=== PATIENT | female | born 1930 | race African-American/Black ===

== ENCOUNTER 2016-06-19 07:21 | Inpatient (IN) | payer OTHER ==
[2016-06-19] MEDS ORDERED: morphine CARPU-JECT 4 MG/1 ML DISP.SYRIN IVPUSH ONE (07:46)
--- NOTE | 2016-06-19 07:51 | PDOC ---
History of Present Illness - General Chief Complaint: Edema Stated Complaint: LEFT LEG PAIN Time Seen by Provider: 06/19/16 07:23 History Source: Patient - History of Present Illness Occurred: reports: yesterday Severity: Yes: severe Lower Extremity Pain Location: left: leg Past History - Past Medical History Allergies/Adverse Reactions: Allergies Allergy/AdvReac Type Severity Reaction Status Date / Time aspirin Allergy Verified 06/19/16 08:12 azithromycin [From Zithromax] Allergy Verified 06/19/16 08:12 erythromycin base Allergy Verified 06/19/16 08:12 iodine Allergy Verified 06/19/16 08:12 Penicillins Allergy Verified 06/19/16 08:12 Sulfa (Sulfonamide Allergy Verified 06/19/16 08:12 Antibiotics) tetracycline Allergy Verified 06/19/16 08:12 Home Medications: Ambulatory Orders Amlodipine Besylate [Norvasc -] 5 mg PO DAILY 06/19/16 Atorvastatin Ca [Lipitor] 5 mg PO DAILY 06/19/16 Oxycodone HCl/Acetaminophen [Percocet 5-325 mg Tablet] 1 tab PO Q4H 06/19/16 Rivaroxaban [Xarelto -] 20 mg PO ASDIR 06/19/16 Tizanidine HCl [Zanaflex] 2 mg PO TID PRN 06/19/16 Trazodone HCl [Desyrel -] 50 mg PO ASDIR 06/19/16 Triamterene/Hydrochlorothiazid [Triamterene-Hctz 37.5-25 mg Cp] 1 each PO ASDIR 06/19/16 Valsartan [Diovan] 160 mg PO ASDIR 06/19/16 Review of Systems - Review of Systems Constitutional: No: Chills, Fever Respiratory: No: Shortness of Breath Cardiac (ROS): No: Chest Pain, Palpitations *Physical Exam - Physical Exam General Appearance: Yes: Appropriately Dressed. No: Apparent Distress HEENT: positive: Normal Voice Neck: positive: Supple Respiratory/Chest: positive: Lungs Clear, Normal Breath Sounds. 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 States she was taken off the xarelto prior to the surgery and has not resumed medication as of yet. No chest pain, shortness of breath or palpitations. No fever or chills. Denies trauma See exam LLE pain/swelling s/p RLE surgery for poorly healing wound 4 days ago at outside hospital R/o DVT No resp/cardiac complaints st this time Stable in ED -pain control -US -labs 06/19/16 09:44 Extensive DVT on US. No evidence of PE at this time. Will give lovenox and admit 06/19/16 10:35 Case d/w hospitalist and pt admitted 06/19/16 10:35 06/19/16 11:15 Patient's plastic surgeon, Dr. Bustamante, at [facility] contacted me to inform me that patient's procedure 4 days ago lasted approximately 25 minutes. States patient was told to resume Xarelto, however pt state she was not given a new rx and so have not restarted meds yet. When asked if he would be willing to accept pt back to facility, declines. *DC/Admit/Observation/Transfer Diagnosis at time of Disposition: DVT (deep venous thrombosis) Qualifiers: DVT location: lower extremity Affected thrombotic vein of extremity: unspecified vein of extremity Laterality: left Chronicity: acute Qualified Code( s): I82.402 - Acute embolism and thrombosis of unspecified deep veins of left lower extremity - Discharge Dispostion Condition at time of disposition: Fair Admit: Yes - Referrals
[2016-06-19 08:07] VITALS: BMI 29.5
[2016-06-19] MEDS ORDERED: morphine CARPU-JECT 2 MG/1 ML DISP.SYRIN ONE (08:26)
[2016-06-19 08:59] LABS: BASOPHIL 0.4 % (0-2.0); EOSINOPHIL 2.6 % (0-4.5); MCH 26.2 pg (25.7-33.7); MCHC 32.7 g/dl (32.0-36.0); NEUTROPHILS 81.9 % (42.8-82.8); PLATELET COUNT 201 K/MM3 (134-434); WHITE BLOOD COUNT 12.5 K/mm3 (4.0-10.0)
[2016-06-19 09:27] LABS: ALBUMIN 4.3 g/dl (3.4-5.0); CALCIUM 9.2 mg/dL (8.5-10.1); CREATININE 1.7 mg/dL (0.55-1.02)
[2016-06-19 09:29] LABS: BILIRUBIN,TOTAL 0.4 mg/dL (0.2-1.0); TOT PROT 7.6 g/dl (6.4-8.2)
[2016-06-19] MEDS ORDERED: ENOXAPARIN NA (PORCINE) 80 MG/0.8 ML DISP.SYRIN SQ SCH (10:15)
[2016-06-19] MEDS ORDERED: ENOXAPARIN NA (PORCINE) 80 MG/0.8 ML DISP.SYRIN SQ ONE (10:17)
[2016-06-19] MEDS ORDERED: ACETAMINOPHEN 325 MG TABLET (FP) PO PRN (10:54)
[2016-06-19] MEDS ORDERED: PATIENT'S OWN MEDICATION (NON-FORMULARY) (Tizanidine Hcl [Zanaflex] 2 MG) PO PRN (10:55)
--- NOTE | 2016-06-19 10:57 | HP ---
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 Bustamante at [facility] on Tuesday. She was discharged from the hospital yesterday. She has been off of Xarelto since Tuesday. She presents today with "tense" swelling and pain of the LLE. She has had some dry cough but denies chest pain or shortness of breath. ER course was notable for: (1) Cr 1.7 (no prior available for comparison) (2) Venous duplex of the LLE: Thrombus within the length of the left common femoral, femoral, and popliteal veins Recent Travel: None PAST SURGICAL HISTORY: SVC ligation x 50 yrs ago, Social History: Lives alone, has [employer] 5h/day 3d/wk Smoking: None Alcohol: None Allergies aspirin Allergy (Verified 06/19/16 08:12) azithromycin [From Zithromax] Allergy (Verified 06/19/16 08:12) erythromycin base Allergy (Verified 06/19/16 08:12) iodine Allergy (Verified 06/19/16 08:12) Penicillins Allergy (Verified 06/19/16 08:12) Sulfa (Sulfonamide Antibiotics) Allergy (Verified 06/19/16 08:12) tetracycline Allergy (Verified 06/19/16 08:12) HOME MEDICATIONS: Medication Instructions Recorded Amlodipine Besylate [Norvasc -] 5 mg PO DAILY 06/19/16 Atorvastatin Ca [Lipitor] 5 mg PO DAILY 06/19/16 Oxycodone HCl/Acetaminophen 1 tab PO Q4H 06/19/16 [Percocet 5-325 mg Tablet] Rivaroxaban [Xarelto -] 20 mg PO ASDIR 06/19/16 Tizanidine HCl [Zanaflex] 2 mg PO TID PRN 06/19/16 Trazodone HCl [Desyrel -] 50 mg PO ASDIR 06/19/16 Triamterene/Hydrochlorothiazid 1 each PO ASDIR 06/19/16 [Triamterene-Hctz 37.5-25 mg Cp] Valsartan [Diovan] 160 mg PO ASDIR 06/19/16 REVIEW OF SYSTEMS CONSTITUTIONAL: Absent: fever, chills, diaphoresis, generalized weakness, malaise, loss of appetite, weight change HEENT: Absent: rhinorrhea, nasal congestion, throat pain, throat swelling, difficulty swallowing, mouth swelling, ear pain, eye pain, visual changes CARDIOVASCULAR: Absent: chest pain, syncope, palpitations, irregular heart rate, lightheadedness , peripheral edema RESPIRATORY: Absent: cough, shortness of breath, dyspnea with exertion, orthopnea, wheezing, stridor, hemoptysis GASTROINTESTINAL: Absent: abdominal pain, abdominal distension, nausea, vomiting, diarrhea, constipation, melena, hematochezia GENITOURINARY: Absent: dysuria, frequency, urgency, hesitancy, hematuria, flank pain, genital pain MUSCULOSKELETAL: Absent: myalgia, arthralgia, joint swelling, back pain, neck pain SKIN: Absent: rash, itching, pallor HEMATOLOGIC/IMMUNOLOGIC: Absent: easy bleeding, easy bruising, lymphadenopathy, frequent infections ENDOCRINE: Absent: unexplained weight gain, unexplained weight loss, heat intolerance, cold intolerance NEUROLOGIC: Absent: headache, focal weakness or paresthesias, dizziness, unsteady gait, seizure, mental status changes, bladder or bowel incontinence PSYCHIATRIC: Absent: anxiety, depression, suicidal or homicidal ideation, hallucinations. PHYSICAL EXAMINATION GENERAL: Awake, alert, and fully oriented, in no acute distress. HEAD: Normal with no signs of trauma. EYES: Pupils equal, round and reactive to light, extraocular movements intact, sclera anicteric, conjunctiva clear. No lid lag. EARS, NOSE, THROAT: Ears normal, nares patent, oropharynx clear without exudates. Moist mucous membranes. NECK: Normal range of motion, supple without lymphadenopathy, JVD, or masses. LUNGS: Breath sounds equal, clear to auscultation bilaterally. No wheezes, and no crackles. No accessory muscle use. HEART: Regular rate and rhythm, normal S1 and S2 without murmur, rub or gallop. ABDOMEN: Soft, nontender, not distended, normoactive bowel sounds, no guarding, no rebound, no masses. No hepatomegaly or splenomegaly. MUSCULOSKELETAL: Normal range of motion at all joints. No bony deformities or tenderness. No CVA tenderness. UPPER EXTREMITIES: 2+ pulses, warm, well-perfused. No cyanosis. No clubbing. Cap refill <2 seconds. No peripheral edema. LOWER EXTREMITIES: RLE: Splinted. JOANNA wraps removed to assess pulses (1+) and sensation (intact), but splint left in place. LLE: Foot warm, able to move toes. Sensation is diminished. DP pulse is not dopplerable or palpable. 2+ non- pitting edema of foot and lower leg. No discoloration. NEUROLOGICAL: Cranial nerves II-XII intact. Normal speech. PSYCHIATRIC: Cooperative. Good eye contact. Appropriate mood and affect. SKIN: Warm, dry, normal turgor, no rashes or lesions noted. ASSESSMENT/PLAN: 85 year old female with extensive post-operative DVT of the left lower extremity. Problem List - Problem (1) DVT (deep venous thrombosis) Assessment/Plan: -Extensive DVT. Although there is no discoloration of the limb yet to suggest phlegmasia alba or cerulea dolens, pulse is not palpable or dopplerable and swelling may be causing arterial compromise. -Received Lovenox 80mg sq in ED; will start heparin gtt in 12 hrs so that patient can undergo thrombectomy. -Hold Xarelto. -Discussed with Dr. Graff- will obtain arterial doppler of LE now; if there is in fact compromise, will need to undergo thrombectomy now on an emergent basis, if not will schedule for Tuesday. -The patient denies chest pain or shortness of breath. She is not hypoxic or tachycardic. Low suspicion for PE at this time; in any case, patient is being fully anticoagulated. In case CTA becomes necessary: she is allergic to iodine and states that she gets "itching" from contrast, but states that she can have contrast if she receives Benadryl first. -[facility] surgeon is aware and does not want patient transferred back to [facility] for management. Code(s): I82.409 - ACUTE EMBOLISM AND THOMBOS UNSP DEEP VN UNSP LOWER EXTREMITY Qualifiers: DVT location: lower extremity Affected thrombotic vein of extremity: unspecified vein of extremity Laterality: left Chronicity: acute Qualified Code(s): I82.402 - Acute embolism and thrombosis of unspecified deep veins of left lower extremity (2) Hypertension Assessment/Plan: -At goal -Continue home regimen Code(s): I10 - ESSENTIAL (PRIMARY) HYPERTENSION (3) Hyperlipemia Assessment/Plan: -Continue home Atorvastatin Code(s): E78.5 - HYPERLIPIDEMIA, UNSPECIFIED (4) DVT prophylaxis Assessment/Plan: -Therapeutic anticoagulation -Ambulation with PT ADDENDUM 1:42pm: Arterial u/s reviewed with Dr. Granados: Diminished monophasic flow in the left [employer] with peak systolic flow 26 cm/s. Biphasic flow in the left common femoral, superficial femoral, and popliteal arteries. No indication for emergent thrombectomy; will schedule for Tuesday. Keep on heparin gtt throughout. NPO after midnight Tuesday. Patient must be on bedrest; no PT, no leg elevation. Please re-call Dr. Granados for any changes in exam, e.g. discoloration or cold in extremity. Code(s): BZZ6920 - Visit type - Emergency Visit Emergency Visit: Yes ED Registration Date: 06/19/16 Care time: The patient presented to the Emergency Department on the above date and was hospitalized for further evaluation of their emergent condition. - New Patient This patient is new to me today: Yes Date on this admission: 06/19/16 - Critical Care Critical Care patient: No
[2016-06-19] MEDS ORDERED: traZODone HCL 50 MG TABLET (FP) PO SCH (11:00)
[2016-06-19] MEDS ORDERED: RIVAROXABAN 20 MG TABLET PO SCH (11:00)
[2016-06-19] MEDS ORDERED: VALSARTAN 160 MG TABLET (UD) PO SCH (11:00)
[2016-06-19] MEDS ORDERED: TRIAMTERENE AND HCTZ - 37.5 MG/25 MG CAPSULE PO SCH (11:00)
[2016-06-19] MEDS ORDERED: HEPARIN NA (PORCINE) 5,000 UNITS/ML 1ML VIAL IVPUSH PRN ×3 (11:56→22:00)
[2016-06-19] MEDS ORDERED: HEPARIN - 25,000 UNIT in SODIUM CHLORIDE 495 ML IV SCH ×2 (12:00→22:00)
[2016-06-19] MEDS ORDERED: HEPARIN INFUSION - 500 ML IVPB SCH (12:15)
[2016-06-19] MEDS: morphine CARPU-JECT 4 MG/1 ML DISP.SYRIN IVPUSH PRN ×2 (14:48→23:11)
[2016-06-19] MEDS: DOCUSATE SODIUM 100 MG CAPSULE (FP) PO SCH ×2 (14:51→21:51)
--- NOTE | 2016-06-19 16:15 | EKG ---
Test Reason : Blood Pressure : / mmHG Vent. Rate : 079 BPM Atrial Rate : 079 BPM P-R Int : 168 ms QRS Dur : 076 ms QT Int : 374 ms P-R-T Axes : 042 -09 085 degrees QTc Int : 428 ms NORMAL SINUS RHYTHM MINIMAL VOLTAGE CRITERIA FOR LVH, MAY BE NORMAL VARIANT NONSPECIFIC T WAVE ABNORMALITY ABNORMAL ECG NO PREVIOUS ECGS AVAILABLE Confirmed by ZARA SOTO MD ([id number]) on 06/19/2016 4:15:24 PM Referred By: Confirmed By:ZARA SOTO MD
--- NOTE | 2016-06-19 16:38 | PDOC ---
*Physical Exam - Vital Signs Last Vital Signs Temp Pulse Resp BP Pulse Ox 98.7 F 79 18 143/70 97 06/19/16 14:59 06/19/16 14:59 06/19/16 14:59 06/19/16 11:40 06/19/16 11:40 ED Treatment Course - LABORATORY CBC & Chemistry Diagram: 06/19/16 08:40 06/19/16 08:40 - ADDITIONAL ORDERS Additional order review: Laboratory Results 06/19/16 08:40 Sodium 135 L Potassium 4.7 Chloride 105 Carbon Dioxide 27 Anion Gap 3 L BUN 42 H Creatinine 1.7 H Creat Clearance w eGFR 28.50 Random Glucose 97 Calcium 9.2 Total Bilirubin 0.4 AST 18 ALT 18 Alkaline Phosphatase 74 Total Protein 7.6 Albumin 4.3 06/19/16 08:40 RBC 3.89 MCV 80.0 MCHC 32.7 RDW 15.0 MPV 8.0 Neutrophils % 81.9 Lymphocytes % 7.6 L Monocytes % 7.5 Eosinophils % 2.6 Basophils % 0.4 - Medications Given in the ED: ED Medications Discontinued Medications Generic Name Dose Route Start Last Admin Trade Name Freq PRN Reason Stop Dose Admin Enoxaparin Sodium 80 mg 06/19/16 10:15 06/19/16 10:18 Lovenox - SQ 80 mg ONCE FLEX Administration Morphine Sulfate 2 mg 06/19/16 07:46 06/19/16 08:35 Morphine Injection - IVPUSH 06/19/16 07:47 2 mg ONCE ONE Administration Trazodone HCl 50 mg 06/19/16 11:00 06/19/16 15:15 Desyrel - PO Not Given ASDIR [facility] Triamterene/HCTZ 1 cap 06/19/16 11:00 06/19/16 15:15 Dyazide 25/37.5mg PO Not Given ASDIR FLEX Valsartan 160 mg 06/19/16 11:00 06/19/16 15:15 Diovan - PO Not Given ASDIR FLEX Medical Decision Making - Medical Decision Making 06/19/16 16:38 Pt seen by Midlevel Provider under my direct supervision Ancillary studies reviewed I agree with plan as outlined by Midlevel Provider *DC/Admit/Observation/Transfer Diagnosis at time of Disposition: DVT (deep venous thrombosis) Qualifiers: DVT location: lower extremity Affected thrombotic vein of extremity: unspecified vein of extremity Laterality: left Chronicity: acute Qualified Code( s): I82.402 - Acute embolism and thrombosis of unspecified deep veins of left lower extremity - Discharge Dispostion Condition at time of disposition: Fair
[2016-06-19 19:57] LABS: INR 1.09 (0.82-1.09)
[2016-06-19 20:00] LABS: ACTIVATED PTT 38.4 SECONDS (26.9-34.4)
[2016-06-19] MEDS: traZODone HCL 50 MG TABLET (FP) PO SCH (21:51)
[2016-06-19] MEDS: ATORVASTATIN CA 10 MG TABLET (FP) PO SCH (21:51)
[2016-06-19] MEDS: HEPARIN INFUSION - 500 ML IVPB SCH (21:51)
[2016-06-20] MEDS: morphine CARPU-JECT 4 MG/1 ML DISP.SYRIN IVPUSH PRN ×2 (05:26→11:50)
[2016-06-20] MEDS: DOCUSATE SODIUM 100 MG CAPSULE (FP) PO SCH ×3 (06:15→21:44)
[2016-06-20 08:12] LABS: BASOPHIL 0.9 % (0-2.0); MCH 26.5 pg (25.7-33.7); MCHC 33.6 g/dl (32.0-36.0); MEAN CELL VOLUME 78.8 fl (80-96); MEAN PLT VOLUME 7.9 fl (7.5-11.1); NEUTROPHILS 52.8 % (42.8-82.8); PLATELET COUNT 199 K/MM3 (134-434); RDW 15.4 % (11.6-15.6); WHITE BLOOD COUNT 8.5 K/mm3 (4.0-10.0)
[2016-06-20 08:19] LABS: INR 1.12 (0.82-1.09); PROTHROMBIN TIME (PATIENT) 12.4 SEC (9.98-11.88)
[2016-06-20 08:49] LABS: ALBUMIN 3.6 g/dl (3.4-5.0); BILIRUBIN,TOTAL 0.5 mg/dL (0.2-1.0); CALCIUM 8.9 mg/dL (8.5-10.1); CREATININE 1.7 mg/dL (0.55-1.02); TOT PROT 7.1 g/dl (6.4-8.2)
[2016-06-20] MEDS ORDERED: PT OWN MED DRAWER 7, Y5N ONE (09:55)
[2016-06-20] MEDS: VALSARTAN 160 MG TABLET (UD) PO SCH (09:57)
[2016-06-20] MEDS: amLODIPine BESYLATE 5 MG TABLET (FP) PO SCH (09:57)
[2016-06-20] MEDS: TRIAMTERENE AND HCTZ - 37.5 MG/25 MG CAPSULE PO SCH (09:57)
[2016-06-20] MEDS ORDERED: BISACODYL 10 MG SUPP.RECT PR ONE (14:49)
[2016-06-20] MEDS ORDERED: oxyCODONE HCL 5 MG TABLET PO PRN (14:50)
[2016-06-20] MEDS ORDERED: ACETAMINOPHEN 325 MG TABLET (FP) PO PRN (14:51)
--- NOTE | 2016-06-20 14:59 | PN ---
Progress Note (short form) - Note Progress Note: Subjective: no fever or chills , no CP or SOB , no cough. has pain in L leg roxy posteriorly . Has constipation , no BM in 5 days . Objective: Vital Signs: Last Vital Signs Temp Pulse Resp BP Pulse Ox 97.9 F 85 20 113/50 96 06/20/16 10:00 06/20/16 10:00 06/20/16 10:00 06/20/16 10:00 06/20/16 09:00 Physical Exam: NAD, AAox3 CV: RRR, no MRG Lungs : CTAB ext: LLE 1-2 + pitting edema from groin to foot . DP not felt initially , but could be detected by doppler machine ( exam at 11 am ) . exam repeated at 3 pm , I could feel very faint DP pulse. foot is warm to touch , leg and thigh with increased warmth. can move ankle and knee . R leg with a cast below the knee involving the foot. can move toes . Abd : soft, NT, ND, NL BS , surgical scars noted. Labs: Laboratory Results - last 24 hr 06/19/16 06/20/16 06/20/16 19:20 02:50 06:35 WBC 8.5 D RBC 3.74 Hgb 9.9 L Hct 29.5 L MCV 78.8 L MCHC 33.6 RDW 15.4 Plt Count 199 MPV 7.9 Neutrophils % 52.8 D Lymphocytes % 27.1 D Monocytes % 10.2 Eosinophils % 9.0 H D Basophils % 0.9 INR 1.09 PTT (Actin FS) 38.4 H 81.8 H D Sodium Potassium Chloride Carbon Dioxide Anion Gap BUN Creatinine Creat Clearance w eGFR Random Glucose Calcium Total Bilirubin AST ALT Alkaline Phosphatase Total Protein Albumin 06/20/16 06/20/16 06:35 06:35 WBC RBC Hgb Hct MCV MCHC RDW Plt Count MPV Neutrophils % Lymphocytes % Monocytes % Eosinophils % Basophils % INR 1.12 PTT (Actin FS) Sodium 139 Potassium 4.2 Chloride 104 Carbon Dioxide 26 Anion Gap 9 BUN 41 H Creatinine 1.7 H Creat Clearance w eGFR 28.50 Random Glucose 90 Calcium 8.9 Total Bilirubin 0.5 D AST 15 ALT 16 Alkaline Phosphatase 73 Total Protein 7.1 Albumin 3.6 Imaging: US reviewed. 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 1- Extensive LLE DVT in common femoral, femoral and popliteal veins. Still can detect pulse using doppler and now on exam. Arterial US with diminished flow in popliteal artery. no signs of infection. foot is still warm and there is no evidence of complete vascular compromise or ischemia . - cont heparin gtt - For thrombectomy through IR tomorrow - Percocet for pain - bed rest for now . - can resume xarelto after procedure. ( will use 15 mg bID x21 days then 20 daily ) - cont vascular exam of Extremity 2- REcent R rearrangement of R Leg non healing wound on 06/16. discharge instructions reviewed. SHe is supposed to keep cast on until she follows with plastic sx . Toe touch weight baring was instructed at dc - will try to reach Dr. Bustamante tomorrow . 3- H/O HTN: cont home meds 4- H/O HLP: cont meds HLOC. Visit type - Emergency Visit Emergency Visit: Yes ED Registration Date: 06/19/16 Care time: The patient presented to the Emergency Department on the above date and was hospitalized for further evaluation of their emergent condition. - New Patient This patient is new to me today: No - Critical Care Critical Care patient: No
[2016-06-20] MEDS ORDERED: OXYCODONE/APAP 5/325MG COMBO TABLET PO PRN (15:22)
[2016-06-20] MEDS ORDERED: morphine CARPU-JECT 2 MG/1 ML DISP.SYRIN IVPUSH PRN (15:22)
[2016-06-20] MEDS: POLYETHYLENE GLYCOL 3350 119 GM BTL PO SCH (15:41)
[2016-06-20] MEDS: BISACODYL 10 MG SUPP.RECT RC PRN (18:11)
[2016-06-20] MEDS: HEPARIN INFUSION - 500 ML IVPB SCH (21:43)
[2016-06-20] MEDS: traZODone HCL 50 MG TABLET (FP) PO SCH (21:43)
[2016-06-20] MEDS: ATORVASTATIN CA 10 MG TABLET (FP) PO SCH (21:43)
--- NOTE | 2016-06-20 22:29 | HOSP ---
Physical Examination Vital Signs: Vital Signs Temperature 98.7 F 06/20/16 17:46 Pulse Rate 80 06/20/16 17:46 Respiratory Rate 18 06/20/16 17:46 Blood Pressure 116/54 06/20/16 17:46 O2 Sat by Pulse Oximetry (%) 96 06/20/16 09:00 Labs: CBC, BMP 06/20/16 06:35 06/20/16 06:35 Hospitalist Encounter Assessment: I was paged to perform a vascular examination of the left lower extremity. I was not able to palpate the left dorsalis pedis pulse, however, when using a doppler machine patient had strong 2+ pulses in the left dorsalis pedis. Patient's entire left lower extremity positive for 2+ pitting edema with warmth on touch. No erythema or tenderness noted. Patient able to flex and extend the left knee and ankle, as well as wiggle the toes. Right leg noted to have a cast. Patient is scheduled to have IR thrombectomy in the morning. Otherwise, patient denies nausea, vomiting, chest pain, palpitations, shortness of breath. Visit type - Emergency Visit Emergency Visit: No - New Patient This patient is new to me today: Yes Date on this admission: 06/21/16 - Critical Care Critical Care patient: No
[2016-06-21] MEDS: DOCUSATE SODIUM 100 MG CAPSULE (FP) PO SCH ×3 (05:27→22:29)
--- NOTE | 2016-06-21 08:32 | PN ---
Physical Exam: SUBJECTIVE: Patient seen and examined. Feeling well. pain controlled. Denies chest pain, shortness of breath unknown why she had DVT years ago, no known family hx of coagulopathy. OBJECTIVE: Vital Signs Period Temp Pulse Resp BP Sys/Ann Pulse Ox Last 24 Hr 97.9 F-98.7 F 80-85 18-20 105-122/50-64 96-96 GENERAL: The patient is awake, alert, and fully oriented, in no acute distress. HEAD: Normal with no signs of trauma. EYES: extraocular movements intact, sclera anicteric, conjunctiva clear. ENT: Ears normal, nares patent, oropharynx clear without exudates, moist mucous membranes. NECK: Trachea midline, full range of motion, supple. LUNGS: Breath sounds equal, clear to auscultation bilaterally HEART: Regular rate and rhythm, S1, S2. ABDOMEN: Soft, nontender, nondistended, normoactive bowel sounds. EXTREMITIES: right leg in soft cast, able to move toes, toes warm, no calf tenderness. left leg with pitting edema toes cool, foot warm, faintly palpable DP. sensation grossly intact, motor function present. calf tender to palpation. NEUROLOGICAL: Normal speech PSYCH: Normal mood, normal affect. SKIN: Warm, dry, normal turgor, no rashes or lesions noted Laboratory Results - last 24 hr 06/20/16 06:35 Sodium 139 Potassium 4.2 Chloride 104 Carbon Dioxide 26 Anion Gap 9 BUN 41 H Creatinine 1.7 H Creat Clearance w eGFR 28.50 Random Glucose 90 Calcium 8.9 Total Bilirubin 0.5 D AST 15 ALT 16 Alkaline Phosphatase 73 Total Protein 7.1 Albumin 3.6 CBC, BMP 06/21/16 07:43 06/21/16 07:43 Activ Active Medications Generic Name Dose Route Start Last Admin Trade Name Freq PRN Reason Stop Dose Admin Acetaminophen 325 mg 06/20/16 15:31 Tylenol - PO Q4H PRN FEVER OR PAIN Amlodipine Besylate 10 mg 06/22/16 10:00 Norvasc - PO DAILY FLEX Atorvastatin Calcium 10 mg 06/19/16 22:00 06/20/16 21:43 Lipitor - PO 10 mg HS FLEX Administration Bisacodyl 10 mg 06/20/16 16:11 06/20/16 18:11 Dulcolax Suppository - RC 10 mg DAILY PRN Administration CONSTIPATION Docusate Sodium 100 mg 06/19/16 14:00 06/21/16 05:27 Colace - PO Not Given TID FLEX Heparin Sodium (Porcine) 5,000 unit 06/19/16 22:00 Heparin - IVPUSH PRN PRN Heparin Heparin Sodium (Porcine) 1,000 unit 06/19/16 22:00 Heparin - IVPUSH PRN PRN Heparin Heparin Sodium/Dextrose 500 mls @ 20 mls/hr 06/19/16 22:00 06/20/16 21:43 Heparin Infusion - IVPB 19 mls/hr TITR FLEX Administration Protocol 1,000 UNITS/HR Labetalol HCl 100 mg 06/21/16 22:00 Normodyne - PO BID FLEX Morphine Sulfate 2 mg 06/20/16 15:22 06/20/16 19:16 Morphine Injection - IVPUSH 2 mg Q4H PRN Administration PAIN Oxycodone HCl 5 mg 06/20/16 15:31 Roxicodone - PO Q4H PRN Polyethylene Glycol 17 gm 06/20/16 15:00 06/20/16 15:41 Miralax (For Daily Use) - PO 17 gm DAILY FLEX Administration Trazodone HCl 50 mg 06/19/16 22:00 06/20/16 21:43 Desyrel - PO 50 mg HS FLEX Administration ASSESSMENT/PLAN: 85 yr old woman with HTN, HLD, hs of DVT/PE, s/p (POD #5) rearrangement of non- healing wound in right leg at [facility] presented with LLE pain, found to have extensive DVT admitted for thrombectomy. - patient has been off xarelto 3 days prior to surgery and since surgery - currently with palpable left DP, warm to touch with sensation and motor function grossly intact, will monitor closely for signs of ischemia. #Extensive DVT - via ultrasound in common femoral, femoral and popliteal veins. - Heparin gtt 20mls/hr --s/p initial bolus of 5000 units - serial PTT to monitor heparin effect qdaily or 6hrs after dose adjustment, maintain PTT at 50-75 - serial CBC qdaily and monitor for bleeding - awaiting intervention by IR, Dr. Granados aware of case - due to low Cr clearence and elevated Cr, not a candidate for lovenox. Eliquis is likely option with renal dosing, coumadin ideal due to least effect on renal function. will discuss options with patient. - PT eval tomorrow to avoid deconditioning and stasis, toe bearing on right leg only. #Rearrangement of Right leg wound- POD #5 - f/u as outpatient in one week with [facility] surgeon Dr. Bustamante (private cell number [phone], discussed case 2:44pm 06/21 pt has xeroform in place under the cast , okay to leave cast in place for additional few days. will keep intouch to follow patient's progress and will see her in his office upon discharge.) - pain control with percocet 5/325 po q4 prn, morphine 2mg IVPush prn q4h - trazadone 50mg po HS # elevated Cr 2.1 - unknown baseline, Cr clearance 23.7 - d/c diuretics, Diovan 160mg qdaily, triamterene/HCTZ 25/37.5 1c qdaily n - administer NS @100ml/hr for 24 hours, repeat BMP in the AM - to obtain old labs from [facility](unable to reach medical records due to holiday) or PCP (Dr. Rey [phone], office closed due to holiday, unable to reach call service) - urine electrolytes, urine cr, and urine urea #HTN - controlled, d/c duiretics, maintain on following: - Norvasc 10mg po daily - Labetolol 100mg BID #constipation - Miralax 17gm po daily - dulcolax suppository 10mg #HLD - [id number] po qhs #diet - regular diet Visit type - Emergency Visit Emergency Visit: No - New Patient This patient is new to me today: Yes Date on this admission: 06/21/16 - Critical Care Critical Care patient: No - Discharge Referral Referred to [facility] Med [facility].C[facility] No
[2016-06-21] MEDS ORDERED: ALTEPLASE 50 MG VIAL IVPB ONE ×2 (09:00)
[2016-06-21 09:02] LABS: MCH 26.7 pg (25.7-33.7); MCHC 33.7 g/dl (32.0-36.0); MEAN CELL VOLUME 79.3 fl (80-96); MEAN PLT VOLUME 8.2 fl (7.5-11.1); PLATELET COUNT 202 K/MM3 (134-434); RDW 15.4 % (11.6-15.6); WHITE BLOOD COUNT 10.8 K/mm3 (4.0-10.0)
[2016-06-21 09:22] LABS: CREATININE 2.1 mg/dL (0.55-1.02)
[2016-06-21] MEDS ORDERED: PT OWN MED DRAWER 7, Y5N ONE (12:06)
--- NOTE | 2016-06-21 12:20 | PN ---
Teaching Attending Note Name of Resident: Wandy Goff ATTENDING PHYSICIAN STATEMENT I saw and evaluated the patient. I reviewed the resident's note and discussed the case with the resident. I agree with the resident's findings and plan as documented. SUBJECTIVE: no CP or SOB , no fever or chills. Edema and pain in L LE improved . OBJECTIVE: NAD, AAox3 CV: RRR, 2/6 SM at SB. minimal JVD seen today Lungs : CTAB ext: LLE : 2 + pitting edema from groin to foot . very faint L DP pulse felt on exam today . foot is warm to touch, leg and thigh with increased warmth. can move ankle and knee . Nl sensation to light touch R leg with a cast below the knee involving the foot. can move toes . nl sensatio to ligh ttouch on toes Abd : soft, NT, ND, NL BS , surgical scars noted. 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 1- Extensive LLE DVT in common femoral, femoral and popliteal veins. Diminished flow in popliteal artery. no signs of ischemia . - cont heparin gtt - D/W Gebrael, thrombectomy with possible IVC filter placement. 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 - will need repeat IR eval in 3 weeks and endovascular US. - percocet for pain . - for anticoagulation after the procedure , will continue heparin gtt. will d/w pt her options , but in the setting of worsening renal failure and her age , couladnin will be the safest option compared to NOACS and lovenox . 2- Recent rearrangement of R Leg non healing wound on 06/16. - cont cast - will try to reach Dr. Bustamante for further instructions 3- KONRAD : no base line CR. possibly prerenal azotemia. Pt does not look fluid overloaded on exam , but she has JVD. AT the swme time she does not look volume depleted. hard to evaluate her volume status - will check BNP before starting any IVF in a trial to correct KONRAD. If BNp is significantly elevated , will hold off. - check echo for EF - calculate FeNa - hold diovan and diuretics . - monitor closely 3- HTN: dc ARB and diuretics as above . increase norvasc and add labetalol for BP control in mean time 4- H/O HLP: cont meds HLOC.
[2016-06-21] MEDS: POLYETHYLENE GLYCOL 3350 119 GM BTL PO SCH (12:50)
[2016-06-21] MEDS ORDERED: SODIUM CHLORIDE 1,000 ML IV SCH (13:15)
[2016-06-21] MEDS: oxyCODONE HCL 5 MG TABLET PO PRN (14:36)
[2016-06-21] MEDS: ACETAMINOPHEN 325 MG TABLET (FP) PO PRN (14:37)
[2016-06-21] MEDS: amLODIPine BESYLATE 5 MG TABLET (FP) PO SCH (18:25)
[2016-06-21] MEDS: TRIAMTERENE AND HCTZ - 37.5 MG/25 MG CAPSULE PO SCH (18:25)
[2016-06-21] MEDS: VALSARTAN 160 MG TABLET (UD) PO SCH (18:25)
[2016-06-21] MEDS ORDERED: HEPARIN INFUSION - 500 ML IVPB ONE (21:47)
[2016-06-21] MEDS: HEPARIN INFUSION - 500 ML IVPB SCH (22:27)
[2016-06-21] MEDS: ATORVASTATIN CA 10 MG TABLET (FP) PO SCH (22:30)
[2016-06-21] MEDS: traZODone HCL 50 MG TABLET (FP) PO SCH (22:30)
[2016-06-21] MEDS: LABETALOL HCL 100 MG TABLET (FP) PO SCH (22:30)
[2016-06-22] MEDS: DOCUSATE SODIUM 100 MG CAPSULE (FP) PO SCH ×3 (06:37→22:31)
[2016-06-22 08:15] LABS: CALCIUM 8.1 mg/dL (8.5-10.1); CREATININE 1.9 mg/dL (0.55-1.02)
[2016-06-22 08:23] LABS: MCH 25.8 pg (25.7-33.7); MCHC 32.7 g/dl (32.0-36.0); MEAN PLT VOLUME 8.6 fl (7.5-11.1); PLATELET COUNT 184 K/MM3 (134-434); RDW 15.2 % (11.6-15.6); WHITE BLOOD COUNT 14.3 K/mm3 (4.0-10.0)
[2016-06-22] MEDS: LABETALOL HCL 100 MG TABLET (FP) PO SCH ×2 (10:20→22:32)
[2016-06-22] MEDS: amLODIPine BESYLATE 10 MG TABLET (FP) PO SCH (10:20)
[2016-06-22] MEDS: ACETAMINOPHEN 325 MG TABLET (FP) PO PRN (11:23)
[2016-06-22] MEDS: oxyCODONE HCL 5 MG TABLET PO PRN (11:23)
--- NOTE | 2016-06-22 14:02 | PN ---
Physical Exam: SUBJECTIVE: Patient seen and examined feels better. able to lift her leg, pain decreased since admission. has been drinking more water. abdominal pain improved, appetite is good. Has not had a bowel movement with formed or solid particles, it was mostly thin and watery. denies sob, chest pain, cough, dysuria. OBJECTIVE: Vital Signs Period Temp Pulse Resp BP Sys/Ann Pulse Ox Last 24 Hr 97.7 F-98.2 F 66-80 18-18 121-133/49-70 93 GENERAL: The patient is awake, alert, and fully oriented, in no acute distress. HEAD: Normal with no signs of trauma. EYES: extraocular movements intact, sclera anicteric, conjunctiva clear. ENT: Ears normal, nares patent, oropharynx clear without exudates, moist mucous membranes. NECK: Trachea midline, full range of motion, supple. LUNGS: Breath sounds equal, clear to auscultation bilaterally HEART: Regular rate and rhythm, S1, S2. soft systolic murmur ABDOMEN: Soft, nontender, nondistended, normoactive bowel sounds. EXTREMITIES: right leg in soft cast, able to move toes, toes warm, no calf tenderness. dressing c/d/i. left leg with pitting edema(improved) toes warm, foot warm, faintly palpable DP , 1+. sensation grossly intact, motor function present. able to lift leg and bend knee. some tenderness at insertion in posterior knee, site clean without surrounding erythema. NEUROLOGICAL: Normal speech PSYCH: Normal mood, normal affect. SKIN: Warm, dry, normal turgor, no rashes or lesions noted Laboratory Results - last 24 hr 06/22/16 06/22/16 06/22/16 06:25 06:25 06:25 WBC 14.3 H D RBC 3.36 L Hgb 8.7 L D Hct 26.6 L MCV 79.0 L MCHC 32.7 RDW 15.2 Plt Count 184 MPV 8.6 PTT (Actin FS) 72.8 H D Sodium 138 Potassium 4.1 Chloride 105 Carbon Dioxide 25 Anion Gap 8 BUN 56 H Creatinine 1.9 H Random Glucose 155 H D Calcium 8.1 L Active Medications Generic Name Dose Route Start Last Admin Trade Name Freq PRN Reason Stop Dose Admin Acetaminophen 325 mg 06/20/16 15:31 06/22/16 11:23 Tylenol - PO 325 mg Q4H PRN Administration FEVER OR PAIN Amlodipine Besylate 10 mg 06/22/16 10:00 06/22/16 10:20 Norvasc - PO 10 mg DAILY FLEX Administration Atorvastatin Calcium 10 mg 06/19/16 22:00 06/21/16 22:30 Lipitor - PO 10 mg HS FLEX Administration Bisacodyl 10 mg 06/20/16 16:11 06/20/16 18:11 Dulcolax Suppository - RC 10 mg DAILY PRN Administration CONSTIPATION Docusate Sodium 100 mg 06/19/16 14:00 06/22/16 06:37 Colace - PO 100 mg TID FLEX Administration Heparin Sodium (Porcine) 5,000 unit 06/19/16 22:00 Heparin - IVPUSH PRN PRN Heparin Heparin Sodium (Porcine) 1,000 unit 06/19/16 22:00 Heparin - IVPUSH PRN PRN Heparin Heparin Sodium/Dextrose 500 mls @ 20 mls/hr 06/19/16 22:00 06/21/16 22:27 Heparin Infusion - IVPB 19 mls/hr TITR FLEX Administration Protocol 1,000 UNITS/HR Labetalol HCl 100 mg 06/21/16 22:00 06/22/16 10:20 Normodyne - PO 100 mg BID FLEX Administration Oxycodone HCl 5 mg 06/20/16 15:31 06/22/16 11:23 Roxicodone - PO 5 mg Q4H PRN Administration Polyethylene Glycol 17 gm 06/20/16 15:00 06/21/16 12:50 Miralax (For Daily Use) - PO Not Given DAILY FLEX Trazodone HCl 50 mg 06/19/16 22:00 06/21/16 22:30 Desyrel - PO 50 mg HS FLEX Administration ASSESSMENT/PLAN: 85 yr old woman with HTN, HLD, hs of DVT/PE, s/p (POD #6) rearrangement of non- healing wound in right leg at [facility] presented with LLE pain, found to have extensive DVT admitted for thrombectomy. - Dr. Rey, PCP, aware of patient's admission, aware of medication changes and will follow-up as outpatient regarding changes in anti-hypertensives and anti- coagulation. - PT evaluation complete - echo pending #Leucocytosis - chest xray, u/a and urine cx to r/o infection - reactive vs infection - repeat in the AM #Extensive DVT - via ultrasound in common femoral, femoral and popliteal veins. s/p thrombectomy POD#1 - Heparin gtt 20mls/hr --s/p initial bolus of 5000 units - serial PTT to monitor heparin effect qdaily or 6hrs after dose adjustment, maintain PTT at 50-75 - serial CBC qdaily and monitor for bleeding - will discuss options with patient for oral anti-coagulation #Rearrangement of Right leg wound- POD #6 - f/u as outpatient in one week with [facility] surgeon Dr. Bustamante (private cell number [phone], discussed case 2:44pm 1/16 pt has xeroform in place under the cast , okay to leave cast in place for additional few days. will keep in touch to follow patient's progress and will see her in his office upon discharge.) - pain control with percocet 5/325 po q4 prn, (d/c'ed morphine) - trazadone 50mg po HS # elevated Cr - improved: 1.9 - d/c diuretics, Diovan 160mg qdaily, triamterene/HCTZ 25/37.5 1c qdaily - encourage oral fluid intake, suspicious for CHF given edema, echo reading pending, will hold off on IVF. - discussed case with Dr. Rey ([phone]): patient's Cr baseline is mid-1.0's , recent Cr in 05/2016 is 1.5. - urine electrolytes, urine cr, and urine urea #HTN - controlled, d/c duiretics, maintain on following: - Norvasc 10mg po daily - Labetolol 100mg BID #constipation - Miralax 17gm po daily - dulcolax suppository 10mg - colace 100mg po #HLD - atorvastatin 10mg po qhs #diet - regular diet Visit type - Emergency Visit Emergency Visit: No - New Patient This patient is new to me today: No - Critical Care Critical Care patient: No - Discharge Referral Referred to [facility] Med P.C.: No
[2016-06-22] MEDS: POLYETHYLENE GLYCOL 3350 119 GM BTL PO SCH (15:10)
--- NOTE | 2016-06-22 18:41 | PN ---
Teaching Attending Note Name of Resident: Wandy Goff ATTENDING PHYSICIAN STATEMENT I saw and evaluated the patient. I reviewed the resident's note and discussed the case with the resident. I agree with the resident's findings and plan as documented. SUBJECTIVE: no fever or chills. NL leg pain improved. no BM OBJECTIVE: NAD, AAox3 CV: RRR, 2/6 SM at LUSB. minimal JVD seen today Lungs : CTAB ext: LLE : 2 + pitting edema from groin to foot . very faint ( 1+ ) L DP pulse felt on exam today . foot is warm to touch, leg and thigh with increased warmth. can move ankle and knee . Nl sensation to light touch R leg with a cast below the knee involving the foot. can move toes . nl sensation to light touch on toes Abd : soft, NT, ND, NL BS , surgical scars noted. 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 1- Extensive LLE DVT in common femoral, femoral and popliteal veins. s/p thrombectomy by IR yesterday - cont heparin gtt - will need repeat IR eval in 3 weeks and endovascular US. - percocet for pain . dc morphine - For fpc AC : pt declines coumadinand would like to be on NOACS penetrably xarelto. Per her PCP her Cr base line is 1.5 . in this case Eliquis is a better option as it was studied for pt with renal failure . Her Cr clearance today is 26.8 . I expect her Cr and Cr clearance to improve tomorrow . when her Cr is 1.5 or less, can start eliquis after d/w pt. The dose will be 10 mg BID x1 week then 5 mg BID after that. Literature reviewed, NO adjustment in dose when acute DV treatment . 2- Recent rearrangement of R Leg non healing wound on 06/16. - cont cast - Dr. Bustamante was contacted. Recs are to leave case on until dc then f/u 3- KONRAD : base line 1.5 . prerenal azotemia improving with IVF - cont IVF -cont to hold diovan and diuretics . can resume diovan when cr at base line - monitor closely 3- HTN: hold ARB and diuretics as above . instead : norvasc dose is increased and labetalol added for BP control in mean time . - possibly at dc , can resume ARB, cont to hold diuretic , and continue increased dose of Norvasc. dc labetalol 4- H/O HLP: cont meds HLOC.
[2016-06-22] MEDS: traZODone HCL 50 MG TABLET (FP) PO SCH (22:31)
[2016-06-22] MEDS: ATORVASTATIN CA 10 MG TABLET (FP) PO SCH (22:32)
[2016-06-22] MEDS: HEPARIN INFUSION - 500 ML IVPB SCH (22:32)
[2016-06-23 04:33] LABS: URINE APPEARANCE CLEAR; URINE BILIRUBIN NEGATIVE (NEGATIVE); URINE BLOOD NEGATIVE (NEGATIVE); URINE COLOR STRAW; URINE GLUCOSE (UA) NEGATIVE (NEGATIVE); URINE KETONE NEGATIVE (NEGATIVE); URINE NITRITE NEGATIVE (NEGATIVE); URINE PROTEIN NEGATIVE (NEGATIVE); URINE UROBILINOGEN NEGATIVE E.U./dl (0.2-1.0)
[2016-06-23 04:42] LABS: URINE LEUK ESTERASE TRACE (NEGATIVE)
[2016-06-23 05:00] LABS: URINE BACTERIA RARE /hpf (NONE SEEN); URINE HYALINE CAST 4 /lpf; URINE RBC 1 /hpf (0-3); URINE WBC 6 /hpf (3-5)
[2016-06-23] MEDS: DOCUSATE SODIUM 100 MG CAPSULE (FP) PO SCH ×3 (07:35→21:55)
[2016-06-23 08:13] LABS: MCH 26.4 pg (25.7-33.7); MCHC 33.5 g/dl (32.0-36.0); MEAN CELL VOLUME 78.9 fl (80-96); MEAN PLT VOLUME 8.9 fl (7.5-11.1); PLATELET COUNT 194 K/MM3 (134-434); RDW 15.1 % (11.6-15.6); WHITE BLOOD COUNT 12.5 K/mm3 (4.0-10.0)
[2016-06-23 08:36] LABS: CALCIUM 8.6 mg/dL (8.5-10.1); CREATININE 1.7 mg/dL (0.55-1.02)
--- NOTE | 2016-06-23 09:03 | PN ---
Physical Exam: SUBJECTIVE: Patient seen and examined. c/o of sore throat and cough since last night. denies fever, chills, chest pain, SOB, abdominal pain, diarrhea, dysuria. OBJECTIVE: Vital Signs Period Temp Pulse Resp BP Sys/Ann Pulse Ox Last 24 Hr 97.7 F-98.6 F 66-74 20-22 115-141/47-71 95 GENERAL: The patient is awake, alert, and fully oriented, in no acute distress. HEAD: Normal with no signs of trauma. EYES: extraocular movements intact, sclera anicteric, conjunctiva clear. ENT: Ears normal, nares patent, oropharynx clear without exudates or erythema, moist mucous membranes. no LAD. NECK: Trachea midline, full range of motion, supple. LUNGS: mild wheeezing in b/l lungs HEART: Regular rate and rhythm, S1, S2. soft systolic murmur ABDOMEN: Soft, nontender, nondistended, normoactive bowel sounds. EXTREMITIES: right leg in soft cast, able to move toes, toes warm, no calf tenderness. dressing c/d/i. left leg with pitting edema(improved) toes warm, foot warm, faintly palpable DP , 1+. sensation grossly intact, motor function present. able to lift leg and bend knee. some tenderness at insertion in posterior knee, site clean without surrounding erythema. NEUROLOGICAL: Normal speech PSYCH: Normal mood, normal affect. SKIN: Warm, dry, normal turgor, no rashes or lesions noted Laboratory Results - last 24 hr 06/22/16 06/22/16 06/22/16 07:00 07:00 23:30 WBC RBC Hgb Hct MCV MCHC RDW Plt Count MPV PTT (Actin FS) Sodium Potassium Chloride Carbon Dioxide Anion Gap BUN Creatinine Random Glucose Calcium Urine Color Straw Urine Appearance Clear Urine pH 5.0 Ur Specific [place] 1.011 Urine Protein Negative Urine Glucose (UA) Negative Urine Ketones Negative Urine Blood Negative Urine Nitrite Negative Urine Bilirubin Negative Urine Urobilinogen Negative Ur Leukocyte Esterase Trace H Urine RBC 1 Urine WBC 6 Ur Epithelial Cells Rare Urine Bacteria Rare Hyaline Casts 4 Ur Random Urea Nitrogn 567 Urine Creatinine 71.0 06/23/16 06/23/16 06/23/16 06:35 06:35 06:35 WBC 12.5 H RBC 3.14 L Hgb 8.3 L Hct 24.7 L MCV 78.9 L MCHC 33.5 RDW 15.1 Plt Count 194 MPV 8.9 PTT (Actin FS) 43.1 H D Sodium 139 Potassium 4.4 Chloride 105 Carbon Dioxide 27 Anion Gap 7 L BUN 54 H Creatinine 1.7 H Random Glucose 80 D Calcium 8.6 Urine Color Urine Appearance Urine pH Ur Specific [place] Urine Protein Urine Glucose (UA) Urine Ketones Urine Blood Urine Nitrite Urine Bilirubin Urine Urobilinogen Ur Leukocyte Esterase Urine RBC Urine WBC Ur Epithelial Cells Urine Bacteria Hyaline Casts Ur Random Urea Nitrogn Urine Creatinine Active Medications Generic Name Dose Route Start Last Admin Trade Name Freq PRN Reason Stop Dose Admin Acetaminophen 325 mg 06/20/16 15:31 06/22/16 11:23 Tylenol - PO 325 mg Q4H PRN Administration FEVER OR PAIN Amlodipine Besylate 10 mg 06/22/16 10:00 06/22/16 10:20 Norvasc - PO 10 mg DAILY FLEX Administration Atorvastatin Calcium 10 mg 06/19/16 22:00 06/22/16 22:32 Lipitor - PO 10 mg HS FLEX Administration Bisacodyl 10 mg 06/20/16 16:11 06/20/16 18:11 Dulcolax Suppository - RC 10 mg DAILY PRN Administration CONSTIPATION Docusate Sodium 100 mg 06/19/16 14:00 06/23/16 07:35 Colace - PO 100 mg TID FLEX Administration Guaifenesin 10 ml 06/23/16 09:01 Robitussin - PO Q6H PRN COUGH Heparin Sodium (Porcine) 5,000 unit 06/19/16 22:00 Heparin - IVPUSH PRN PRN Heparin Heparin Sodium (Porcine) 1,000 unit 06/19/16 22:00 Heparin - IVPUSH PRN PRN Heparin Heparin Sodium/Dextrose 500 mls @ 20 mls/hr 06/19/16 22:00 06/22/16 22:32 Heparin Infusion - IVPB 19 mls/hr TITR FLEX Administration Protocol 1,000 UNITS/HR Labetalol HCl 100 mg 06/21/16 22:00 06/22/16 22:32 Normodyne - PO 100 mg BID FLEX Administration Oxycodone HCl 5 mg 06/20/16 15:31 06/22/16 11:23 Roxicodone - PO 5 mg Q4H PRN Administration Polyethylene Glycol 17 gm 06/20/16 15:00 06/22/16 15:10 Miralax (For Daily Use) - PO 17 gm DAILY FLEX Administration Trazodone HCl 50 mg 06/19/16 22:00 06/22/16 22:31 Desyrel - PO 50 mg HS FLEX Administration ASSESSMENT/PLAN: 85 yr old woman with HTN, HLD, hs of DVT/PE, s/p (POD #6) rearrangement of non- healing wound in right leg at [facility] presented with LLE pain, found to have extensive DVT admitted for thrombectomy. - Dr. Rey, PCP, aware of patient's admission, aware of medication changes and will follow-up as outpatient regarding changes in anti-hypertensives and anti- coagulation. - PT evaluation complete - echo with normal EF, no regional wall motion abnormalities. #Leucocytosis - trending down, u/a with trace leuc est +, and pt is c/o of upper respiratory sx, influe A/B neg - will treat with levaquin renal dosed, 500mg today, 250 bid po for five days - robutussin prn for cough, duonebs for wheezing - repeat labs in the AM #Extensive DVT - via ultrasound in common femoral, femoral and popliteal veins. s/p thrombectomy POD#1 - Heparin gtt 20mls/hr --s/p initial bolus of 5000 units - serial PTT to monitor heparin effect qdaily or 6hrs after dose adjustment, maintain PTT at 50-75 - serial CBC qdaily and monitor for bleeding - will discuss options with patient for oral anti-coagulation #Rearrangement of Right leg wound- POD #7 - f/u as outpatient in one week with [facility] surgeon Dr. Bustamante (private cell number [phone], discussed case 2:44pm / pt has xeroform in place under the cast , okay to leave cast in place for additional few days. will keep in touch to follow patient's progress and will see her in his office upon discharge.) - pain control with percocet 5/325 po q4 prn - trazadone 50mg po HS # elevated Cr - improved: 1.7, FeUera 27.1%, likely prerenal cause. - d/c diuretics, Diovan 160mg qdaily, triamterene/HCTZ 25/37.5 1c qdaily - encourage oral fluid intake - discussed case with Dr. Rey ([phone]): patient's Cr baseline is mid-1.0's , recent Cr in 05/2016 is 1.5. - nephro consult, Dr. Holloway appreciated #HTN - controlled, d/c duiretics, maintain on following: - Norvasc 10mg po daily - Labetolol 100mg BID #constipation - Miralax 17gm po daily - dulcolax suppository 10mg - colace 100mg po #HLD - atorvastatin 10mg po qhs #diet - low sodium/fat controlled. Visit type - Emergency Visit Emergency Visit: No - New Patient This patient is new to me today: No - Critical Care Critical Care patient: No - Discharge Referral Referred to [facility] Med P.C.: No
[2016-06-23] MEDS: oxyCODONE HCL 5 MG TABLET PO PRN (09:42)
[2016-06-23] MEDS: ACETAMINOPHEN 325 MG TABLET (FP) PO PRN (09:43)
[2016-06-23] MEDS: LABETALOL HCL 100 MG TABLET (FP) PO SCH ×3 (09:43→21:57)
[2016-06-23] MEDS: amLODIPine BESYLATE 10 MG TABLET (FP) PO SCH (09:43)
[2016-06-23] MEDS: POLYETHYLENE GLYCOL 3350 119 GM BTL PO SCH (09:43)
[2016-06-23] MEDS ORDERED: ALBUTEROL SO4 2.5/IPRATROPIUM 0.5 INH SOL 3 ML VIAL.NEB. NEB ONE ×2 (10:50→16:15)
[2016-06-23] MEDS ORDERED: LEVOFLOXACIN 500 MG TABLET (FP) PO SCH (11:00)
[2016-06-23] MEDS: guaiFENesin 200 MG/10 ML 10 ML UNIT-DOSE CUPS PO PRN ×2 (12:08→21:55)
--- NOTE | 2016-06-23 12:17 | CONSULT ---
Consult Consult Specialty:: Nephrology Reason for Consultation:: KONRAD - History of Present Illness Chief Complaint: left lower extremity pain History of Present Illness: Pt is an 85 year old female with pmhx of multiple PE, hyperlipidemia and HTN who presents to the ER with left leg pain. She recently underwent a flap reconstruction of a right foot wound that has been non healing. She was found to have a left lower extremity DVT. She had been been on Xarelto however did not restart it after surgery. She was on coumadin in the past. She was found to have elevated creatinine and I was called to evaluate her. She denies history of CKD. SHe denies hematuria or dysuria. She says she has been taking two pills alieve every day for lower extremity pain because she did not like the way percocet made her feel. - History Source History Provided By: Patient, Medical Record - Past Medical History Cardio/Vascular: Yes: Deep Vein Thrombosis, HTN, Hyperlipdemia Pulmonary: Yes: Pulmonary Embolus ...: No - Past Surgical History Additional Surgical History: right leg surgery - Alcohol/Substance Use Hx Alcohol Use: Yes (OCCASIONAL GLASS OF WINE) - Smoking History Smoking history: Never smoked Home Medications - Allergies Allergies/Adverse Reactions: Allergies Allergy/AdvReac Type Severity Reaction Status Date / Time aspirin Allergy Verified 06/19/16 08:12 azithromycin [From Zithromax] Allergy Verified 06/19/16 08:12 erythromycin base Allergy Verified 06/19/16 08:12 iodine Allergy Verified 06/19/16 08:12 Penicillins Allergy Verified 06/19/16 08:12 Sulfa (Sulfonamide Allergy Verified 06/19/16 08:12 Antibiotics) tetracycline Allergy Verified 06/19/16 08:12 - Home Medications Home Medications: Ambulatory Orders Amlodipine Besylate [Norvasc -] 5 mg PO DAILY 06/19/16 Atorvastatin Ca [Lipitor] 5 mg PO DAILY 06/19/16 Oxycodone HCl/Acetaminophen [Percocet 5-325 mg Tablet] 1 tab PO Q4H 06/19/16 Rivaroxaban [Xarelto -] 20 mg PO ASDIR 06/19/16 Tizanidine HCl [Zanaflex] 2 mg PO TID PRN 06/19/16 Trazodone HCl [Desyrel -] 50 mg PO ASDIR 06/19/16 Triamterene/Hydrochlorothiazid [Triamterene-Hctz 37.5-25 mg Cp] 1 each PO ASDIR 06/19/16 Valsartan [Diovan] 160 mg PO ASDIR 06/19/16 Family Disease History - Family Disease History Family History: Denies Review of Systems - Review of Systems Constitutional: reports: Malaise Eyes: reports: No Symptoms HENT: reports: No Symptoms Neck: reports: No Symptoms Cardiovascular: reports: No Symptoms Respiratory: reports: No Symptoms Gastrointestinal: reports: No Symptoms Genitourinary: reports: No Symptoms Musculoskeletal: reports: Extremity Pain, Muscle Cramps Integumentary: reports: No Symptoms Neurological: reports: No Symptoms Endocrine: reports: No Symptoms Hematology/Lymphatic: reports: No Symptoms Psychiatric: reports: No Symptoms Physical Exam Vital Signs: Vital Signs Temperature 98.6 F 06/23/16 06:00 Pulse Rate 66 06/23/16 06:00 Respiratory Rate 20 06/23/16 06:00 Blood Pressure 140/71 06/23/16 06:00 O2 Sat by Pulse Oximetry (%) 95 06/22/16 21:00 Constitutional: Yes: Calm Eyes: Yes: Conjunctiva Clear HENT: Yes: Atraumatic Neck: Yes: Supple Cardiovascular: Yes: S1, S2 Respiratory: Yes: CTA Bilaterally Gastrointestinal: Yes: Normal Bowel Sounds, Soft Musculoskeletal: Yes: Muscle Weakness Edema: Yes Edema: LUE: 1+, RUE: 1+ Neurological: Yes: Oriented Psychiatric: Yes: Oriented Labs: CBC, BMP 06/23/16 06:35 06/23/16 06:35 Laboratory Tests 06/19/16 06/20/16 06/20/16 08:40 06:35 06:35 WBC Hgb 9.9 L Sodium Potassium Chloride Carbon Dioxide Anion Gap Creatinine 1.7 H 1.7 H Urine Color Urine Appearance Urine pH Ur Specific [place] Urine Protein Urine Glucose (UA) Urine Ketones Urine Blood Urine Nitrite Urine Bilirubin Urine Urobilinogen 06/21/16 06/21/16 06/22/16 07:43 07:43 06:25 WBC Hgb 10.3 L 8.7 L D Sodium Potassium Chloride Carbon Dioxide Anion Gap Creatinine 2.1 H D Urine Color Urine Appearance Urine pH Ur Specific [place] Urine Protein Urine Glucose (UA) Urine Ketones Urine Blood Urine Nitrite Urine Bilirubin Urine Urobilinogen 06/22/16 06/22/16 06/23/16 06:25 23:30 06:35 WBC 12.5 H Hgb 8.3 L Sodium Potassium Chloride Carbon Dioxide Anion Gap Creatinine 1.9 H Urine Color Straw Urine Appearance Clear Urine pH 5.0 Ur Specific [place] 1.011 Urine Protein Negative Urine Glucose (UA) Negative Urine Ketones Negative Urine Blood Negative Urine Nitrite Negative Urine Bilirubin Negative Urine Urobilinogen Negative 06/23/16 06:35 WBC Hgb Sodium 139 Potassium 4.4 Chloride 105 Carbon Dioxide 27 Anion Gap 7 L Creatinine 1.7 H Urine Color Urine Appearance Urine pH Ur Specific [place] Urine Protein Urine Glucose (UA) Urine Ketones Urine Blood Urine Nitrite Urine Bilirubin Urine Urobilinogen Imaging - Results Ultrasound: Report Reviewed (left leg DVT) Problem List - Problems (1) DVT (deep venous thrombosis) Code(s): I82.409 - ACUTE EMBOLISM AND THOMBOS UNSP DEEP VN UNSP LOWER EXTREMITY Qualifiers: DVT location: lower extremity Affected thrombotic vein of extremity: unspecified vein of extremity Laterality: left Chronicity: acute Qualified Code(s): I82.402 - Acute embolism and thrombosis of unspecified deep veins of left lower extremity (2) DVT prophylaxis Code(s): GHG6741 - (3) Hyperlipemia Code(s): E78.5 - HYPERLIPIDEMIA, UNSPECIFIED (4) Hypertension Code(s): I10 - ESSENTIAL (PRIMARY) HYPERTENSION (5) KONRAD (acute kidney injury) Code(s): N17.9 - ACUTE KIDNEY FAILURE, UNSPECIFIED (6) Pulmonary embolism Code(s): I26.99 - OTHER PULMONARY EMBOLISM WITHOUT ACUTE COR PULMONALE Assessment/Plan Current Medications Generic Name Dose Route Start Last Admin Trade Name Freq PRN Reason Stop Dose Admin Acetaminophen 325 mg 06/20/16 15:31 06/23/16 09:43 Tylenol - PO 325 mg Q4H PRN Administration FEVER OR PAIN Amlodipine Besylate 10 mg 06/22/16 10:00 06/23/16 09:43 Norvasc - PO 10 mg DAILY FLEX Administration Atorvastatin Calcium 10 mg 06/19/16 22:00 06/22/16 22:32 Lipitor - PO 10 mg HS FLEX Administration Bisacodyl 10 mg 06/20/16 16:11 06/20/16 18:11 Dulcolax Suppository - RC 10 mg DAILY PRN Administration CONSTIPATION Docusate Sodium 100 mg 06/19/16 14:00 06/23/16 07:35 Colace - PO 100 mg TID FLEX Administration Guaifenesin 10 ml 06/23/16 09:01 06/23/16 12:08 Robitussin - PO 10 ml Q6H PRN Administration COUGH Heparin Sodium (Porcine) 5,000 unit 06/19/16 22:00 06/23/16 10:47 Heparin - IVPUSH 5,000 unit PRN PRN Administration Heparin Heparin Sodium (Porcine) 1,000 unit 06/19/16 22:00 Heparin - IVPUSH PRN PRN Heparin Heparin Sodium/Dextrose 500 mls @ 20 mls/hr 06/19/16 22:00 06/23/16 10:49 Heparin Infusion - IVPB 1,050 units/hr TITR FLEX Titration Protocol 1,000 UNITS/HR Labetalol HCl 100 mg 06/21/16 22:00 06/23/16 09:43 Normodyne - PO 100 mg BID FLEX Administration Levofloxacin 500 mg 06/23/16 12:30 Levaquin - PO 06/23/16 12:31 ONCE ONE Oxycodone HCl 5 mg 06/20/16 15:31 06/23/16 09:42 Roxicodone - PO 5 mg Q4H PRN Administration Polyethylene Glycol 17 gm 06/20/16 15:00 06/23/16 09:43 Miralax (For Daily Use) - PO 17 gm DAILY FLEX Administration Trazodone HCl 50 mg 06/19/16 22:00 06/22/16 22:31 Desyrel - PO 50 mg HS FLEX Administration Impression 1. KONRAD 2. DVT acute 3. hx of PE 4. HTN 5. hyperlipidemia Plan - pt has been off of nsaids - her creatinine is improving - will check renal ultrasound - repeat UA - renal function appears to be improving, cont monitoring clearance - will need to dose anticoagulants based on the clearance - diuretics are currently on hold - nsaid use may have contributed to the KONRAD - will attempt tp obtain outpt labs to check baseline creatinine Dr Holloway
[2016-06-23] MEDS ORDERED: LEVOFLOXACIN 500 MG TABLET (FP) PO ONE (12:30)
--- NOTE | 2016-06-23 15:38 | PN ---
Teaching Attending Note Name of Resident: Wandy Goff ATTENDING PHYSICIAN STATEMENT I saw and evaluated the patient. I reviewed the resident's note and discussed the case with the resident. I agree with the resident's findings and plan as documented. SUBJECTIVE: Patient is feeling better, with no acute distress. OBJECTIVE: Vital Signs Temperature 97.6 F 06/23/16 10:00 Pulse Rate 69 06/23/16 10:00 Respiratory Rate 20 06/23/16 10:00 Blood Pressure 127/59 06/23/16 10:00 O2 Sat by Pulse Oximetry (%) 95 06/22/16 21:00 GENERAL: The patient is awake, alert, and fully oriented, in no acute distress. HEAD: Normal with no signs of trauma. EYES: extraocular movements intact, sclera anicteric, conjunctiva clear. ENT: Ears normal, oropharynx clear without exudates, moist mucous membranes. NECK: Trachea midline, full range of motion, supple. LUNGS: Breath sounds equal, clear to auscultation bilaterally HEART: Regular rate and rhythm, S1, S2 regular , 1/6 systolic ejection murmur ABDOMEN: Soft, nontender, nondistended, normoactive bowel sounds. EXTREMITIES: right leg in soft cast, able to move toes, toes warm, no calf tenderness. positive for dressing.left leg positive for DVT NEUROLOGICAL: Normal speech PSYCH: Normal mood, normal affect. SKIN: Warm, dry, normal turgor, no rashes or lesions noted CBCD WBC 12.5 K/mm3 (4.0-10.0) H 06/23/16 06:35 RBC 3.14 M/mm3 (3.60-5.2) L 06/23/16 06:35 Hgb 8.3 GM/dL (10.7-15.3) L 06/23/16 06:35 Hct 24.7 % (32.4-45.2) L 06/23/16 06:35 MCV 78.9 fl (80-96) L 06/23/16 06:35 MCHC 33.5 g/dl (32.0-36.0) 06/23/16 06:35 RDW 15.1 % (11.6-15.6) 06/23/16 06:35 Plt Count 194 K/MM3 (134-434) 06/23/16 06:35 MPV 8.9 fl (7.5-11.1) 06/23/16 06:35 CMP Sodium 139 mmol/L (136-145) 06/23/16 06:35 Potassium 4.4 mmol/L (3.5-5.1) 06/23/16 06:35 Chloride 105 mmol/L (98-107) 06/23/16 06:35 Carbon Dioxide 27 mmol/L (21-32) 06/23/16 06:35 Anion Gap 7 (8-16) L 06/23/16 06:35 BUN 54 mg/dL (7-18) H 06/23/16 06:35 Creatinine 1.7 mg/dL (0.55-1.02) H 06/23/16 06:35 Creat Clearance w eGFR 28.50 (>60) 06/20/16 06:35 Random Glucose 80 mg/dL (74-106) D 06/23/16 06:35 Calcium 8.6 mg/dL (8.5-10.1) 06/23/16 06:35 Total Bilirubin 0.5 mg/dL (0.2-1.0) D 06/20/16 06:35 AST 15 U/L (15-37) 06/20/16 06:35 ALT 16 U/L (12-78) 06/20/16 06:35 Alkaline Phosphatase 73 U/L (45-117) 06/20/16 06:35 Total Protein 7.1 g/dl (6.4-8.2) 06/20/16 06:35 Albumin 3.6 g/dl (3.4-5.0) 06/20/16 06:35 Current Medications Generic Name Dose Route Start Last Admin Trade Name Freq PRN Reason Stop Dose Admin Acetaminophen 325 mg 06/20/16 15:31 06/23/16 09:43 Tylenol - PO 325 mg Q4H PRN Administration FEVER OR PAIN Amlodipine Besylate 10 mg 06/22/16 10:00 06/23/16 09:43 Norvasc - PO 10 mg DAILY FLEX Administration Atorvastatin Calcium 10 mg 06/19/16 22:00 06/22/16 22:32 Lipitor - PO 10 mg HS FLEX Administration Bisacodyl 10 mg 06/20/16 16:11 06/20/16 18:11 Dulcolax Suppository - RC 10 mg DAILY PRN Administration CONSTIPATION Docusate Sodium 100 mg 06/19/16 14:00 06/23/16 14:12 Colace - PO 100 mg TID FLEX Administration Guaifenesin 10 ml 06/23/16 09:01 06/23/16 12:08 Robitussin - PO 10 ml Q6H PRN Administration COUGH Heparin Sodium (Porcine) 5,000 unit 06/19/16 22:00 06/23/16 10:47 Heparin - IVPUSH 5,000 unit PRN PRN Administration Heparin Heparin Sodium (Porcine) 1,000 unit 06/19/16 22:00 Heparin - IVPUSH PRN PRN Heparin Heparin Sodium/Dextrose 500 mls @ 20 mls/hr 06/19/16 22:00 06/23/16 10:49 Heparin Infusion - IVPB 1,050 units/hr TITR FLEX Titration Protocol 1,000 UNITS/HR Labetalol HCl 100 mg 06/21/16 22:00 06/23/16 09:43 Normodyne - PO 100 mg BID FLEX Administration Levofloxacin 250 mg 06/24/16 06:00 Levaquin - PO DAILY@0600 FLEX Oxycodone HCl 5 mg 06/20/16 15:31 06/23/16 09:42 Roxicodone - PO 5 mg Q4H PRN Administration Polyethylene Glycol 17 gm 06/20/16 15:00 06/23/16 09:43 Miralax (For Daily Use) - PO 17 gm DAILY FLEX Administration Trazodone HCl 50 mg 06/19/16 22:00 06/22/16 22:31 Desyrel - PO 50 mg HS FLEX Administration Medication Instructions Recorded Amlodipine Besylate [Norvasc -] 5 mg PO DAILY 06/19/16 Atorvastatin Ca [Lipitor] 5 mg PO DAILY 06/19/16 Oxycodone HCl/Acetaminophen 1 tab PO Q4H 06/19/16 [Percocet 5-325 mg Tablet] Rivaroxaban [Xarelto -] 20 mg PO ASDIR 06/19/16 Tizanidine HCl [Zanaflex] 2 mg PO TID PRN 06/19/16 Trazodone HCl [Desyrel -] 50 mg PO ASDIR 06/19/16 Triamterene/Hydrochlorothiazid 1 each PO ASDIR 06/19/16 [Triamterene-Hctz 37.5-25 mg Cp] Valsartan [Diovan] 160 mg PO ASDIR 06/19/16 ASSESSMENT AND PLAN: 85 y/o very pleasant lady with h/o HTN, HLP, and 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 # Acute Extensive LLE DVT in common femoral, femoral and popliteal veins. s/p thrombectomy by IR yesterday .On heparin gtt will continue - will need repeat IR eval in 3 weeks and endovascular US. Percocet for pain control - For [employer] AC : pt declines coumadin and would like to continue her Xarelto. Will get involved since patient is having acute renal failure over chronic for safer outcome . As per 's note discussed with her PCP and her Cr base line is 1.5 . in this case Eliquis is a better option as it was studied for pt with renal failure . Will check her creatinine level and will make sure that her insurenace covers the medication. when her Cr is 1.5 or less, can start eliquis after d/w pt. The dose will be 10 mg BID x1 week then 5 mg BID after that. Literature reviewed, NO adjustment in dose when acute DV treatment . # Acute renal failure over chronic : base line 1.5 . improving with IVF cont to hold diovan and diuretics # Recent rearrangement of R Leg non healing wound on 06/16. cont cast - Dr. Bustamante was contacted. F/u with him as an outpatient # HTN: hold ARB and diuretics as above. Norvasc dose is increased and labetalol added for BP control in mean time . At the time of discharge will discuss her meds with whether should resume ARB, and diuretic , and to continue with increased dose of Norvasc and whether to dc labetalol or not. #H/O HLP: cont meds DVT Px: heparin drip
[2016-06-23] MEDS: ATORVASTATIN CA 10 MG TABLET (FP) PO SCH (21:55)
[2016-06-23] MEDS: traZODone HCL 50 MG TABLET (FP) PO SCH (21:56)
[2016-06-24] MEDS: HEPARIN INFUSION - 500 ML IVPB SCH (00:17)
[2016-06-24] MEDS ORDERED: LEVOFLOXACIN 250 MG TABLET (FP) PO SCH (06:00)
[2016-06-24] MEDS: DOCUSATE SODIUM 100 MG CAPSULE (FP) PO SCH ×3 (06:32→21:42)
[2016-06-24] MEDS: guaiFENesin 200 MG/10 ML 10 ML UNIT-DOSE CUPS PO PRN (06:34)
--- NOTE | 2016-06-24 07:31 | PN ---
Physical Exam: SUBJECTIVE: Patient seen and examined. worsening cough today, mostly dry, with sore throat denies chest pain, SOB, difficulty swallowing or breathing. OBJECTIVE: Vital Signs Period Temp Pulse Resp BP Sys/Ann Pulse Ox Last 24 Hr 97.5 F-98.4 F 69-71 20-22 118-127/44-59 95-96 GENERAL: The patient is awake, alert, and fully oriented, in no acute distress. HEAD: Normal with no signs of trauma. EYES: extraocular movements intact, sclera anicteric, conjunctiva clear. ENT: Ears normal, nares patent, oropharynx clear without exudates or erythema, moist mucous membranes. no LAD. NECK: Trachea midline, full range of motion, supple. LUNGS: wheeezing in b/l lungs with mild crackles. HEART: Regular rate and rhythm, S1, S2. soft systolic murmur ABDOMEN: Soft, nontender, nondistended, normoactive bowel sounds. EXTREMITIES: right leg in soft cast, able to move toes, toes warm, no calf tenderness. dressing c/d/i. left leg with 1+ pitting edema toes warm, foot warm, faintly palpable DP, 1+. sensation grossly intact, motor function present. able to lift leg and bend knee. some tenderness at insertion in posterior knee and lateral thigh, site clean without surrounding erythema. NEUROLOGICAL: Normal speech PSYCH: Normal mood, normal affect. SKIN: Warm, dry, normal turgor, no rashes or lesions noted Laboratory Results - last 24 hr 06/23/16 06/23/16 06/23/16 06:35 06:35 06:35 WBC 12.5 H RBC 3.14 L Hgb 8.3 L Hct 24.7 L MCV 78.9 L MCHC 33.5 RDW 15.1 Plt Count 194 MPV 8.9 PTT (Actin FS) 43.1 H D Sodium 139 Potassium 4.4 Chloride 105 Carbon Dioxide 27 Anion Gap 7 L BUN 54 H Creatinine 1.7 H Random Glucose 80 D Calcium 8.6 06/23/16 17:30 WBC RBC Hgb Hct MCV MCHC RDW Plt Count MPV PTT (Actin FS) 65.4 H D Sodium Potassium Chloride Carbon Dioxide Anion Gap BUN Creatinine Random Glucose Calcium Active Medications Generic Name Dose Route Start Last Admin Trade Name Freq PRN Reason Stop Dose Admin Acetaminophen 325 mg 06/20/16 15:31 06/23/16 09:43 Tylenol - PO 325 mg Q4H PRN Administration FEVER OR PAIN Albuterol/Ipratropium 1 amp 06/24/16 10:00 Duoneb - NEB Q4HPO FLEX Amlodipine Besylate 10 mg 06/22/16 10:00 06/23/16 09:43 Norvasc - PO 10 mg DAILY FLEX Administration Atorvastatin Calcium 10 mg 06/19/16 22:00 06/23/16 21:55 Lipitor - PO 10 mg HS FLEX Administration Bisacodyl 10 mg 06/20/16 16:11 06/20/16 18:11 Dulcolax Suppository - RC 10 mg DAILY PRN Administration CONSTIPATION Docusate Sodium 100 mg 06/19/16 14:00 06/24/16 06:32 Colace - PO 100 mg TID FLEX Administration Guaifenesin/Codeine Phosphate 5 ml 06/24/16 06:45 Robitussin Ac - PO Q8H PRN Heparin Sodium (Porcine) 5,000 unit 06/19/16 22:00 06/23/16 10:47 Heparin - IVPUSH 5,000 unit PRN PRN Administration Heparin Heparin Sodium (Porcine) 1,000 unit 06/19/16 22:00 Heparin - IVPUSH PRN PRN Heparin Heparin Sodium/Dextrose 500 mls @ 20 mls/hr 06/19/16 22:00 06/24/16 00:17 Heparin Infusion - IVPB 21 mls/hr TITR FLEX Administration Protocol 1,000 UNITS/HR Labetalol HCl 100 mg 06/21/16 22:00 06/23/16 21:57 Normodyne - PO 100 mg BID FLEX Administration Levofloxacin 250 mg 06/24/16 06:00 06/24/16 06:31 Levaquin - PO 250 mg DAILY@0600 FLEX Administration Oxycodone HCl 5 mg 06/20/16 15:31 06/23/16 09:42 Roxicodone - PO 5 mg Q4H PRN Administration Polyethylene Glycol 17 gm 06/20/16 15:00 06/23/16 09:43 Miralax (For Daily Use) - PO 17 gm DAILY FLEX Administration Trazodone HCl 50 mg 06/19/16 22:00 06/23/16 21:56 Desyrel - PO 50 mg HS FLEX Administration ASSESSMENT/PLAN: 85 yr old woman with HTN, HLD, hs of DVT/PE, s/p (POD #8) rearrangement of non- healing wound in right leg at [facility] presented with LLE pain, found to have extensive DVT admitted for thrombectomy. #Leucocytosis - improved. - will treat with levaquin renal dosed 250 bid po for seven days - start 06/23/2015, day 2 - robutussin AC prn for cough, duonebs qid for wheezing - repeat labs in the AM #Extensive DVT - via ultrasound in common femoral, femoral and popliteal veins. s/p thrombectomy 06/21/2015 - Heparin gtt 20mls/hr --s/p initial bolus of 5000 units - serial PTT to monitor heparin effect qdaily or 6hrs after dose adjustment, maintain PTT at 50-75 - serial CBC qdaily and monitor for bleeding - will discuss options with patient for oral anti-coagulation - Cr back to baseline; 1.5. will renally dose xarelto as patient is already receiving it and has insurance coverage. #Rearrangement of Right leg wound- POD #8 - f/u as outpatient in one week with [facility] surgeon Dr. Bustamante (private cell number [phone], discussed case 2:44pm 1/ pt has xeroform in place under the cast , okay to leave cast in place for additional few days. will keep in touch to follow patient's progress and will see her in his office upon discharge.) - pain control with percocet 5/325 po q4 prn - trazadone 50mg po HS # elevated Cr - improved: 1.5 - d/c diuretics, Diovan 160mg qdaily, triamterene/HCTZ 25/37.5 1c qdaily - encourage oral fluid intake - discussed case with Dr. Rey ([phone]): patient's Cr baseline is mid-1.0's , recent Cr in 05/2016 is 1.5. - nephro consult, Dr. Holloway appreciated - renal/bladder ultrasound #HTN - controlled, d/c duiretics, maintain on following: - Norvasc 10mg po daily; will decrease as side effect is LE edema. - Labetolol 100mg BID, will increase to 200 mg twice daily #constipation - Miralax 17gm po daily - dulcolax suppository 10mg - colace 100mg po - added lactulose one dose tonight if no improvement with suppository #HLD - atorvastatin 10mg po qhs #diet - low sodium/fat controlled. Visit type - Emergency Visit Emergency Visit: No - New Patient This patient is new to me today: No - Critical Care Critical Care patient: No - Discharge Referral Referred to [facility] No
[2016-06-24 08:25] LABS: MCH 26.6 pg (25.7-33.7); MCHC 33.5 g/dl (32.0-36.0); MEAN CELL VOLUME 79.3 fl (80-96); MEAN PLT VOLUME 8.4 fl (7.5-11.1); PLATELET COUNT 205 K/MM3 (134-434); RDW 15.2 % (11.6-15.6); WHITE BLOOD COUNT 9.1 K/mm3 (4.0-10.0)
[2016-06-24 09:01] LABS: CALCIUM 8.4 mg/dL (8.5-10.1); CREATININE 1.5 mg/dL (0.55-1.02)
--- NOTE | 2016-06-24 09:10 | PN ---
Teaching Attending Note Name of Resident: Wandy Goff ATTENDING PHYSICIAN STATEMENT I saw and evaluated the patient. I reviewed the resident's note and discussed the case with the resident. I agree with the resident's findings and plan as documented. SUBJECTIVE: Patient is comfortable with no acute distress. No fever or chills. OBJECTIVE: Vital Signs Temperature 98.5 F 06/24/16 06:00 Pulse Rate 69 06/24/16 06:00 Respiratory Rate 20 06/24/16 06:00 Blood Pressure 152/87 06/24/16 06:00 O2 Sat by Pulse Oximetry (%) 95 06/23/16 21:00 GENERAL: The patient is awake, alert, and fully oriented, in no acute distress. HEAD: Normal with no signs of trauma. EYES: extraocular movements intact, sclera anicteric, conjunctiva clear. ENT: Ears normal, oropharynx clear without exudates, moist mucous membranes. NECK: Trachea midline, full range of motion, supple. LUNGS: Breath sounds equal, clear to auscultation bilaterally HEART: Regular rate and rhythm, S1, S2 regular , 1/6 systolic ejection murmur ABDOMEN: Soft, nontender, nondistended, normoactive bowel sounds. EXTREMITIES: right leg in soft cast, able to move toes, toes warm, no calf tenderness. positive for right dressing . left leg positive for DVT NEUROLOGICAL: Normal speech PSYCH: Normal mood, normal affect. SKIN: Warm, dry, normal turgor, no rashes or lesions noted CBCD WBC 9.1 K/mm3 (4.0-10.0) 06/24/16 06:40 RBC 3.14 M/mm3 (3.60-5.2) L 06/24/16 06:40 Hgb 8.4 GM/dL (10.7-15.3) L 06/24/16 06:40 Hct 24.9 % (32.4-45.2) L 06/24/16 06:40 MCV 79.3 fl (80-96) L 06/24/16 06:40 MCHC 33.5 g/dl (32.0-36.0) 06/24/16 06:40 RDW 15.2 % (11.6-15.6) 06/24/16 06:40 Plt Count 205 K/MM3 (134-434) 06/24/16 06:40 MPV 8.4 fl (7.5-11.1) 06/24/16 06:40 CMP Sodium 137 mmol/L (136-145) 06/24/16 06:40 Potassium 4.5 mmol/L (3.5-5.1) 06/24/16 06:40 Chloride 106 mmol/L (98-107) 06/24/16 06:40 Carbon Dioxide 27 mmol/L (21-32) 06/24/16 06:40 Anion Gap 4 (8-16) L 06/24/16 06:40 BUN 38 mg/dL (7-18) H D 06/24/16 06:40 Creatinine 1.5 mg/dL (0.55-1.02) H 06/24/16 06:40 Creat Clearance w eGFR 28.50 (>60) 06/20/16 06:35 Random Glucose 95 mg/dL (74-106) 06/24/16 06:40 Calcium 8.4 mg/dL (8.5-10.1) L 06/24/16 06:40 Total Bilirubin 0.5 mg/dL (0.2-1.0) D 06/20/16 06:35 AST 15 U/L (15-37) 06/20/16 06:35 ALT 16 U/L (12-78) 06/20/16 06:35 Alkaline Phosphatase 73 U/L (45-117) 06/20/16 06:35 Total Protein 7.1 g/dl (6.4-8.2) 06/20/16 06:35 Albumin 3.6 g/dl (3.4-5.0) 06/20/16 06:35 Medication Instructions Recorded Amlodipine Besylate [Norvasc -] 5 mg PO DAILY 06/19/16 Atorvastatin Ca [Lipitor] 5 mg PO DAILY 06/19/16 Oxycodone HCl/Acetaminophen 1 tab PO Q4H 06/19/16 [Percocet 5-325 mg Tablet] Rivaroxaban [Xarelto -] 20 mg PO ASDIR 06/19/16 Tizanidine HCl [Zanaflex] 2 mg PO TID PRN 06/19/16 Trazodone HCl [Desyrel -] 50 mg PO ASDIR 06/19/16 Triamterene/Hydrochlorothiazid 1 each PO ASDIR 06/19/16 [Triamterene-Hctz 37.5-25 mg Cp] Valsartan [Diovan] 160 mg PO ASDIR 06/19/16 Current Medications Generic Name Dose Route Start Last Admin Trade Name Freq PRN Reason Stop Dose Admin Acetaminophen 325 mg 06/20/16 15:31 06/23/16 09:43 Tylenol - PO 325 mg Q4H PRN Administration FEVER OR PAIN Albuterol/Ipratropium 1 amp 06/24/16 10:00 Duoneb - NEB Q4HPO FLEX Amlodipine Besylate 10 mg 06/22/16 10:00 06/23/16 09:43 Norvasc - PO 10 mg DAILY FLEX Administration Atorvastatin Calcium 10 mg 06/19/16 22:00 06/23/16 21:55 Lipitor - PO 10 mg HS [facility] Administration Bisacodyl 10 mg 06/20/16 16:11 06/20/16 18:11 Dulcolax Suppository - RC 10 mg DAILY PRN Administration CONSTIPATION Docusate Sodium 100 mg 06/19/16 14:00 06/24/16 06:32 Colace - PO 100 mg TID [facility] Administration Guaifenesin/Codeine Phosphate 5 ml 06/24/16 06:45 Robitussin Ac - PO Q8H PRN Labetalol HCl 100 mg 06/21/16 22:00 06/23/16 21:57 Normodyne - PO 100 mg BID FLEX Administration Levofloxacin 250 mg 06/24/16 06:00 06/24/16 06:31 Levaquin - PO 250 mg DAILY@0600 [facility] Administration Oxycodone HCl 5 mg 06/20/16 15:31 06/23/16 09:42 Roxicodone - PO 5 mg Q4H PRN Administration Polyethylene Glycol 17 gm 06/20/16 15:00 06/23/16 09:43 Miralax (For Daily Use) - PO 17 gm DAILY [facility] Administration Trazodone HCl 50 mg 06/19/16 22:00 06/23/16 21:56 Desyrel - PO 50 mg HS [facility] Administration Microbiology 06/22/16 23:30 Urine - Urine Clean Catch Urine Culture - Preliminary Lactose Fermenting Neg Bacilli 06/23/16 11:20 Nasopharyngeal Swab Respiratory Virus Panel - Preliminary 06/23/16 11:20 Nasopharyngeal Swab Influenza Types A,B Antigen (MAGI) - Final 06/23/16 11:20 Nasopharyngeal Swab - Final ASSESSMENT AND PLAN: 85 y/o very pleasant lady with h/o HTN, HLP, and 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 # Acute Extensive LLE DVT in common femoral, femoral and popliteal veins. s/p thrombectomy by IR yesterday .OFF heparin gtt now, will start Xarelto 15mg po bid [facility] kidney function is back to normal. will need repeat IR eval in 3 weeks and endovascular US. Percocet for pain control # Acute renal failure over chronic : base line 1.5 .Improved back to normal cont to hold diovan and diuretics , Nephrology on board. # Recent rearrangement of R Leg non healing wound on 06/16. cont cast Dr. Bustamante was contacted. F/u with him as an outpatient # HTN: hold ARB and diuretics as above. Norvasc dose is decrerased to 5mg and increased labetalol dose . #H/O HLP: cont meds DVT Px: Xarelto
[2016-06-24] MEDS: POLYETHYLENE GLYCOL 3350 119 GM BTL PO SCH (09:41)
[2016-06-24] MEDS: amLODIPine BESYLATE 10 MG TABLET (FP) PO SCH (09:41)
[2016-06-24] MEDS: LABETALOL HCL 100 MG TABLET (FP) PO SCH (09:42)
[2016-06-24] MEDS: oxyCODONE HCL 5 MG TABLET PO PRN (09:42)
[2016-06-24] MEDS: ACETAMINOPHEN 325 MG TABLET (FP) PO PRN (09:42)
[2016-06-24] MEDS ORDERED: LEVOFLOXACIN 500 MG TABLET (FP) PO SCH (10:00)
[2016-06-24] MEDS: ALBUTEROL SO4 2.5/IPRATROPIUM 0.5 INH SOL 3 ML VIAL.NEB. NEB SCH ×4 (10:13→22:25)
--- NOTE | 2016-06-24 12:58 | PN ---
Progress Note, Physician History of Present Illness: Pt seen and examined at bedside. She is awake and alert. She says she feels better today. She denies shortness of breath. - Current Medication List Current Medications: Active Medications Acetaminophen (Tylenol -) 325 mg PO Q4H PRN PRN Reason: FEVER OR PAIN Last Admin: 06/24/16 09:42 Dose: 325 mg Albuterol/Ipratropium (Duoneb -) 1 amp NEB Q4HPO [facility] Last Admin: 06/24/16 10:13 Dose: 1 amp Amlodipine Besylate (Norvasc -) 10 mg PO DAILY [facility] Last Admin: 06/24/16 09:41 Dose: 10 mg Atorvastatin Calcium (Lipitor -) 10 mg PO HS [facility] Last Admin: 06/23/16 21:55 Dose: 10 mg Bisacodyl (Dulcolax Suppository -) 10 mg RC DAILY PRN PRN Reason: CONSTIPATION Last Admin: 06/20/16 18:11 Dose: 10 mg Docusate Sodium (Colace -) 100 mg PO TID [facility] Last Admin: 06/24/16 06:32 Dose: 100 mg Guaifenesin/Codeine Phosphate (Robitussin Ac -) 5 ml PO Q8H PRN Heparin Sodium (Porcine) (Heparin -) 5,000 unit IVPUSH PRN PRN PRN Reason: Heparin Last Admin: 06/23/16 10:47 Dose: 5,000 unit Heparin Sodium (Porcine) (Heparin -) 1,000 unit IVPUSH PRN PRN PRN Reason: Heparin Heparin Sodium/Dextrose (Heparin Infusion -) 500 mls @ 20 mls/hr IVPB TITR FLEX ; 1,000 UNITS/HR PRN Reason: Protocol Last Titration: 06/24/16 09:24 Dose: 1,000 units/hr Labetalol HCl (Normodyne -) 100 mg PO BID [facility] Last Admin: 06/24/16 09:42 Dose: 100 mg Levofloxacin (Levaquin -) 250 mg PO DAILY@0600 [facility] Last Admin: 06/24/16 06:31 Dose: 250 mg Oxycodone HCl (Roxicodone -) 5 mg PO Q4H PRN Last Admin: 06/24/16 09:42 Dose: 5 mg Polyethylene Glycol (Miralax (For Daily Use) -) 17 gm PO DAILY [facility] Last Admin: 06/24/16 09:41 Dose: 17 gm Trazodone HCl (Desyrel -) 50 mg PO HS [facility] Last Admin: 06/23/16 21:56 Dose: 50 mg - Objective Vital Signs: Vital Signs Temperature 98.5 F 06/24/16 06:00 Pulse Rate 69 06/24/16 06:00 Respiratory Rate 20 06/24/16 06:00 Blood Pressure 152/87 06/24/16 06:00 O2 Sat by Pulse Oximetry (%) 95 06/23/16 21:00 Constitutional: Yes: Calm Eyes: Yes: Conjunctiva Clear HENT: Yes: Atraumatic Neck: Yes: Supple Cardiovascular: Yes: S1, S2 Respiratory: Yes: Wheezes Gastrointestinal: Yes: Soft, Abdomen, Obese Genitourinary: Yes: WNL Musculoskeletal: Yes: Muscle Weakness Edema: Yes Edema: LLE: 1+, RLE: Trace Neurological: Yes: Oriented Psychiatric: Yes: Oriented Labs: CBC, BMP 06/24/16 06:40 06/24/16 06:40 INR, PTT INR 1.12 (0.82-1.09) 06/20/16 06:35 Problem List - Problems (1) DVT (deep venous thrombosis) Code(s): I82.409 - ACUTE EMBOLISM AND THOMBOS UNSP DEEP VN UNSP LOWER EXTREMITY Qualifiers: DVT location: lower extremity Affected thrombotic vein of extremity: unspecified vein of extremity Laterality: left Chronicity: acute Qualified Code(s): I82.402 - Acute embolism and thrombosis of unspecified deep veins of left lower extremity (2) DVT prophylaxis Code(s): RWU1195 - (3) Hyperlipemia Code(s): E78.5 - HYPERLIPIDEMIA, UNSPECIFIED (4) Hypertension Code(s): I10 - ESSENTIAL (PRIMARY) HYPERTENSION (5) KONRAD (acute kidney injury) Code(s): N17.9 - ACUTE KIDNEY FAILURE, UNSPECIFIED (6) Pulmonary embolism Code(s): I26.99 - OTHER PULMONARY EMBOLISM WITHOUT ACUTE COR PULMONALE Assessment/Plan Current Medications Generic Name Dose Route Start Last Admin Trade Name Freq PRN Reason Stop Dose Admin Acetaminophen 325 mg 06/20/16 15:31 06/24/16 09:42 Tylenol - PO 325 mg Q4H PRN Administration FEVER OR PAIN Albuterol/Ipratropium 1 amp 06/24/16 10:00 06/24/16 10:13 Duoneb - NEB 1 amp Q4HPO FLEX Administration Amlodipine Besylate 10 mg 06/22/16 10:00 06/24/16 09:41 Norvasc - PO 10 mg DAILY FLEX Administration Atorvastatin Calcium 10 mg 06/19/16 22:00 06/23/16 21:55 Lipitor - PO 10 mg HS FLEX Administration Bisacodyl 10 mg 06/20/16 16:11 06/20/16 18:11 Dulcolax Suppository - RC 10 mg DAILY PRN Administration CONSTIPATION Docusate Sodium 100 mg 06/19/16 14:00 06/24/16 06:32 Colace - PO 100 mg TID [facility] Administration Guaifenesin/Codeine Phosphate 5 ml 06/24/16 06:45 Robitussin Ac - PO Q8H PRN Heparin Sodium (Porcine) 5,000 unit 06/19/16 22:00 06/23/16 10:47 Heparin - IVPUSH 5,000 unit PRN PRN Administration Heparin Heparin Sodium (Porcine) 1,000 unit 06/19/16 22:00 Heparin - IVPUSH PRN PRN Heparin Heparin Sodium/Dextrose 500 mls @ 20 mls/hr 06/19/16 22:00 06/24/16 09:24 Heparin Infusion - IVPB 1,000 units/hr TITR [facility] Titration Protocol 1,000 UNITS/HR Labetalol HCl 100 mg 06/21/16 22:00 06/24/16 09:42 Normodyne - PO 100 mg BID FLEX Administration Levofloxacin 250 mg 06/24/16 06:00 06/24/16 06:31 Levaquin - PO 250 mg DAILY@0600 [facility] Administration Oxycodone HCl 5 mg 06/20/16 15:31 06/24/16 09:42 Roxicodone - PO 5 mg Q4H PRN Administration Polyethylene Glycol 17 gm 06/20/16 15:00 06/24/16 09:41 Miralax (For Daily Use) - PO 17 gm DAILY FLEX Administration Trazodone HCl 50 mg 06/19/16 22:00 06/23/16 21:56 Desyrel - PO 50 mg HS [facility] Administration Impression 1. KONRAD 2. DVT acute 3. hx of PE 4. HTN 5. hyperlipidemia Plan - renal function is improved - avoid nsaids - discussed with pmd, can titrate the dose of labetolol up and try to come down on the norvasc as it can contribute to lower extremity edema - pts baseline creatinine is about 1.5 - check UA - will need to dose anticoagulants based on the clearance - diuretics are currently on hold - nsaid use may have contributed to the KONRAD Dr Holloway
[2016-06-24] MEDS: BISACODYL 10 MG SUPP.RECT RC PRN ×2 (14:15→18:20)
[2016-06-24] MEDS ORDERED: LACTULOSE 20 GM/30 ML UDC (FOR ORAL USE ONLY) PO ONE ×3 (15:32→21:30)
[2016-06-24 17:04] LABS: INR 1.12 (0.82-1.09); PROTHROMBIN TIME (PATIENT) 12.4 SEC (9.98-11.88)
[2016-06-24] MEDS ORDERED: amLODIPine BESYLATE 5 MG TABLET (FP) PO SCH (17:20)
[2016-06-24] MEDS: RIVAROXABAN 15 MG TABLET PO SCH (21:41)
[2016-06-24] MEDS: ATORVASTATIN CA 10 MG TABLET (FP) PO SCH (21:42)
[2016-06-24] MEDS: traZODone HCL 50 MG TABLET (FP) PO SCH (21:42)
[2016-06-24] MEDS: guaiFENesin/CODEINE 5 ML UNIT-DOSE CUPS PO PRN (21:42)
[2016-06-24] MEDS: LABETALOL HCL 200 MG TABLET (FP) PO SCH (21:42)
--- NOTE | 2016-06-24 22:15 | HOSP ---
Addendum entered and electronically signed by Gladys Singleton RES 06/25/16 05 :22: Typing error: Diagnosis should be Lower respiratory tract infection R/O pneumonia. Original Note: Subjective - Review of Symptoms General: Yes: Chills HEENT: Yes: Head Aches Pulmonary: Yes: Cough, Pleuritic Chest Pain Cardiovascular: Yes: Chest Pain Physical Examination Vital Signs: Vital Signs Temperature 100.4 F H 06/24/16 21:40 Pulse Rate 86 06/24/16 21:40 Respiratory Rate 20 06/24/16 21:40 Blood Pressure 142/53 06/24/16 21:40 O2 Sat by Pulse Oximetry (%) 92 L 06/24/16 10:00 Labs: CBC, BMP 06/24/16 06:40 06/24/16 06:40 Hospitalist Encounter Assessment: I was paged by the nurse to assess a patient with fever, cough and chest pain. On further taking the history, patient mentioned she caught cold since 2 days, with progressive worsening of cough, productive sputum yellowish/whitish in color, no blood noticed. Feels feverish, chills +, rigors+ but no sweating. Patient says she feels very ill. Has been having chest pain x 4 hours, located centrally, non radiating, 6/10 in intensity, burning in nature, not associated with nausea or vomiting. Has headache on/off but denies dizziness, loc. Vitals: Rectal temp-101.7 F BP- 142/53 mmHg P- 80 bpm RR- 14 Oxygen sat- 92 % Physical Examination General: Patient lying in bed, looks ill, alert, awake, oriented x 3 in no acute distress HEENT: EOM intact, no pallor or icterus Chest: B/L equal air entry, coarse breath sounds with scattered rhonchi +, wheeze +, no crackles. CVS: S1, S2, systolic murmur Abdomen: Soft, non tender, no organomegaly Lower extremities: Right: No erythema, Swollen, B/L pitting edema, tense Left: Dressing intact Plan: # Upper respiratory tract infection- R/O pneumonia With the symptoms of productive cough, fever, chills, rigors, wheezing +, most likely patient has URTI. Stat CBC, Blood culture, urine culture, CXR sent Although, symptoms more suggestive of pleuritic chest pain, would like to r/ o cardiac cause of chest pain. Hence ordered troponins stat. Tylenol 500mg PO PRN Nasal oxygen Will discontinue Levofloxacin PO and start IV Levofloxacin 500mg stat and then 250 daily renal dose. Monitor vitals and symptoms Illness, Investigation and Plan of care explained to the patient. She verbalized understanding. Case discussed with Dr. Harrison. Visit type - Emergency Visit Emergency Visit: Yes ED Registration Date: 06/19/16 Care time: The patient presented to the Emergency Department on the above date and was hospitalized for further evaluation of their emergent condition. - New Patient This patient is new to me today: Yes Date on this admission: 06/24/16 - Critical Care Critical Care patient: No
[2016-06-24] MEDS ORDERED: ACETAMINOPHEN 500 MG TABLET (FP) PO ONE (22:22)
[2016-06-24] MEDS ORDERED: LEVOFLOXACIN 500 MG IVPB 100 ML IVPB ONE (23:00)
[2016-06-25 00:18] LABS: MCH 26.4 pg (25.7-33.7); MCHC 33.5 g/dl (32.0-36.0); MEAN CELL VOLUME 78.9 fl (80-96); MEAN PLT VOLUME 8.5 fl (7.5-11.1); PLATELET COUNT 212 K/MM3 (134-434); RDW 15.6 % (11.6-15.6); WHITE BLOOD COUNT 6.5 K/mm3 (4.0-10.0)
[2016-06-25] MEDS: ALBUTEROL SO4 2.5/IPRATROPIUM 0.5 INH SOL 3 ML VIAL.NEB. NEB SCH ×6 (01:47→22:30)
[2016-06-25] MEDS: DOCUSATE SODIUM 100 MG CAPSULE (FP) PO SCH ×3 (06:04→21:33)
[2016-06-25] MEDS: guaiFENesin/CODEINE 5 ML UNIT-DOSE CUPS PO PRN ×3 (06:38→21:42)
--- NOTE | 2016-06-25 06:39 | PN ---
Physical Exam: SUBJECTIVE: Patient seen and examined c/o fever, chills, productive cough with thick yellow sputum with few scant drops of blood, sore throat. a/w lateral chest pain from cough. had bm this morning denies nausea, vomiting, diarrhea. Overnight pt had temp of 101. cbc, blood cx, cxy, u/a sent. dose of stat IV levaquin 500mg given. OBJECTIVE: Vital Signs Period Temp Pulse Resp BP Sys/Ann Pulse Ox Last 24 Hr 98.3 F-100.4 F 67-86 18-20 113-142/37-55 90-92 GENERAL: The patient is awake, alert, and fully oriented, in no acute distress. HEAD: Normal with no signs of trauma. no sinus tenderness, EYES: extraocular movements intact, sclera anicteric, conjunctiva clear. ENT: Ears normal, nares patent, oropharynx clear without exudates/erythema moist mucous membranes. no LAD, no rhinorrhea. no post-nasal drip NECK: Trachea midline, full range of motion, supple. LUNGS: Breath sounds with wheezing throughout and rhonchi. HEART: Regular rate and rhythm, S1, S2 with soft systolic murmur ABDOMEN: Soft, nontender, nondistended, normoactive bowel sounds EXTREMITIES: 1+ pulse in DP left foot with 2+ pitting edema in foot and trace edema up leg. popliteal pulse 2+, site grooving lathe tender from procedure, warm, well- perfused. right foot with cdi dressing. no edema, able to wiggle toes with 2+ DP pulse. NEUROLOGICAL: Normal speech PSYCH: Normal mood, normal affect. SKIN: Warm, dry, normal turgor, no rashes or lesions noted Laboratory Results - last 24 hr 06/24/16 06/24/16 06/24/16 06:40 06:40 06:40 WBC 9.1 RBC 3.14 L Hgb 8.4 L Hct 24.9 L MCV 79.3 L MCHC 33.5 RDW 15.2 Plt Count 205 MPV 8.4 INR PTT (Actin FS) 78.1 H Sodium 137 Potassium 4.5 Chloride 106 Carbon Dioxide 27 Anion Gap 4 L BUN 38 H D Creatinine 1.5 H Random Glucose 95 Calcium 8.4 L Troponin I 06/24/16 06/24/16 06/24/16 15:50 22:20 22:20 WBC 6.5 RBC 2.88 L Hgb 7.6 L Hct 22.7 L MCV 78.9 L MCHC 33.5 RDW 15.6 Plt Count 212 MPV 8.5 INR 1.12 PTT (Actin FS) Sodium Potassium Chloride Carbon Dioxide Anion Gap BUN Creatinine Random Glucose Calcium Troponin I < 0.02 Active Medications Generic Name Dose Route Start Last Admin Trade Name Freq PRN Reason Stop Dose Admin Albuterol/Ipratropium 1 amp 06/24/16 10:00 06/25/16 01:47 Duoneb - NEB 1 amp Q4HPO FLEX Administration Amlodipine Besylate 5 mg 06/25/16 10:00 Norvasc - PO DAILY FLEX Atorvastatin Calcium 10 mg 06/19/16 22:00 06/24/16 21:42 Lipitor - PO 10 mg HS FLEX Administration Bisacodyl 10 mg 06/20/16 16:11 06/24/16 18:20 Dulcolax Suppository - RC 10 mg DAILY PRN Administration CONSTIPATION Docusate Sodium 100 mg 06/19/16 14:00 06/25/16 06:04 Colace - PO 100 mg TID FLEX Administration Guaifenesin/Codeine Phosphate 5 ml 06/24/16 06:45 06/25/16 06:38 Robitussin Ac - PO 5 ml Q8H PRN Administration Levofloxacin 50 mls @ 50 mls/hr 06/25/16 22:00 Levaquin 250 Mg Premixed Ivpb - IVPB DAILY@2200 FLEX Labetalol HCl 200 mg 06/24/16 17:20 06/24/16 21:42 Normodyne - PO 200 mg BID FLEX Administration Oxycodone HCl 5 mg 06/20/16 15:31 06/24/16 09:42 Roxicodone - PO 5 mg Q4H PRN Administration Polyethylene Glycol 17 gm 06/20/16 15:00 06/24/16 09:41 Miralax (For Daily Use) - PO 17 gm DAILY FLEX Administration Rivaroxaban 15 mg 06/24/16 22:00 06/24/16 21:41 Xarelto - PO 15 mg BID FLEX Administration Trazodone HCl 50 mg 06/19/16 22:00 06/24/16 21:42 Desyrel - PO 50 mg HS FLEX Administration renal u/s: 1. Mild cortical atrophy, otherwise morphologically normal kidneys and urinary bladder with no evidence of hydronephrosis or acute pathology. 2. Small postvoid residual. ASSESSMENT/PLAN: 85 yr old woman with HTN, HLD, hs of DVT/PE, s/p (POD #8) rearrangement of non- healing wound in right leg at [facility] presented with LLE pain, found to have extensive DVT admitted for thrombectomy. - blood in sputum likely from anticoagulation - HCT trending down, repeat in the AM, if continue to trend down discuss transfusion -r/o pneumonia - cbc overnight not elevated, cxy without infiltrate or effusion - temp improved with tylenol - levaquin renally dosed, given additional dose of levaquin overnight. changed to IV today - start 06/23/2015, day 3 - pending legionella, blood cx, sputum cx, rsv antigen - robutussin AC prn for cough, duonebs qid for wheezing, - solumedrol 40mg IVPB BID (start 06/25) - Dr. Abreu consulted #anemia - iron studies in the AM, MCV low #UTI with e.coli - levaquin IV #Extensive DVT - via ultrasound in common femoral, femoral and popliteal veins. s/p thrombectomy 06/21/2015 - xarelto 15mg po bid for 21 days - start first dose 06/24 pm - Cr back to baseline; 1.4. will renally dose xarelto as patient is already receiving it and has insurance coverage. #Rearrangement of Right leg wound - Dr. Bustamante changed dressing 06/24 in hospital, wound is healing appropriately, pt can f/u in clinic at d/c - pain control with percocet 5/325 po q4 prn - trazadone 50mg po HS # elevated Cr - improved: 1.4 - d/c diuretics, Diovan 160mg qdaily, triamterene/HCTZ 25/37.5 1c qdaily - encourage oral fluid intake - discussed case with Dr. Rey ([phone]): patient's Cr baseline is mid-1.0's , recent Cr in 05/2016 is 1.5. - nephro consult, Dr. Holloway appreciated - renal/bladder ultrasound completed, wnl #HTN - controlled, d/c duiretics and norvasc maintain on following: - monitor as meds have been recently changed - Labetolol 200mg BID #constipation - improved, had two BM - Miralax 17gm po daily - dulcolax suppository 10mg - colace 100mg po #HLD - atorvastatin 10mg po qhs #diet - low sodium/fat controlled. Visit type - Emergency Visit Emergency Visit: No - New Patient This patient is new to me today: No - Critical Care Critical Care patient: No
[2016-06-25 08:05] LABS: INR 1.75 (0.82-1.09); PROTHROMBIN TIME (PATIENT) 19.5 SEC (9.98-11.88)
[2016-06-25 08:13] LABS: CALCIUM 8.8 mg/dL (8.5-10.1); CREATININE 1.4 mg/dL (0.55-1.02)
[2016-06-25] MEDS ORDERED: amLODIPine BESYLATE 5 MG TABLET (FP) PO SCH (10:00)
--- NOTE | 2016-06-25 10:21 | PN ---
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
[2016-06-25] MEDS: POLYETHYLENE GLYCOL 3350 119 GM BTL PO SCH (11:06)
[2016-06-25] MEDS: oxyCODONE HCL 5 MG TABLET PO PRN ×2 (11:07→16:05)
[2016-06-25] MEDS: LABETALOL HCL 200 MG TABLET (FP) PO SCH ×2 (11:07→21:33)
[2016-06-25] MEDS: RIVAROXABAN 15 MG TABLET PO SCH ×2 (11:08→21:41)
[2016-06-25 11:35] LABS: URINE APPEARANCE CLEAR; URINE BILIRUBIN NEGATIVE (NEGATIVE); URINE BLOOD NEGATIVE (NEGATIVE); URINE COLOR STRAW; URINE GLUCOSE (UA) NEGATIVE (NEGATIVE); URINE KETONE NEGATIVE (NEGATIVE); URINE LEUK ESTERASE NEGATIVE (NEGATIVE); URINE NITRITE NEGATIVE (NEGATIVE); URINE PROTEIN NEGATIVE (NEGATIVE); URINE UROBILINOGEN NEGATIVE E.U./dl (0.2-1.0)
--- NOTE | 2016-06-25 11:53 | CONS ---
DATE OF CONSULTATION: DATE OF DICTATION: 06/25/2016 REQUESTING PHYSICIAN: The hospitalist service. HISTORY OF PRESENT ILLNESS: This is an 85-year-old woman who has originally admitted on the . [facility] she had plastic surgery for a non-healing wound on her right leg. 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 She developed sudden onset of severe pain to her left lower extremity. She was found to have a recurrent extensive left lower leg DVT, and she underwent thrombectomy on the . She was noted yesterday to have developed acute onset of cough and fever last night. She reports chills. She started having some wheezing. She was started on IV Levaquin. She had been started on oral Levaquin for a possible UTI, and we are asked to see her for this complaint. She was seen last night by the covering hospitalist. X-ray was ordered, showed no evidence of infiltrate, and she had blood cultures sent as well as UA and urine culture. She had a prior urine culture that was notable for 20-30 gram negative bacilli with a negative urinalysis, so, I doubt she has UTI. She denies nausea and vomiting. She has a good appetite. Her main complaint is cough with some yellow sputum production and wheezing, which she reports is new. She had a sonogram of her kidney and bladder done yesterday that was noticeable for small post void residual. PAST MEDICAL HISTORY: She has a past medical history of multiple PEs through the 1970s. She was on Coumadin, now on Xarelto. She has a history of hypertension, hyperlipidemia, a nonhealing wound of her right foot, which was recently operated [facility]. [facility], as well. PAST SURGICAL HISTORY: Notable for the ligation 50 years ago. SOCIAL HISTORY: She lives alone. She has a home health aide. There is no history of any cigarette or alcohol use. ALLERGIES: She is allergic to ASPIRIN. She is allergic to AZITHROMYCIN and ERYTHROMYCIN as well as PENICILLIN and SULFA. All her antibiotic allergies she reports as hives and itching. She, as well, is allergic to TETRACYCLINE. MEDICATIONS: We called her pharmacy. She has been on Keflex for a month back in November without any side effects, and she has been on quinolones in the past, as well. Her current medications as an outpatient include Norvasc, Lipitor, Percocet, Xarelto, Zanaflex, Desyrel, triamterene, hydrochlorothiazide, and valsartan. FAMILY HISTORY: Noncontributory. SOCIAL HISTORY: As stated before, she lives alone. REVIEW OF SYSTEMS: She has no nausea, vomiting, dysuria, or diarrhea. She complains of cough. She complains of wheezing, which is new. There is no history of any asthma. PHYSICAL EXAMINATION: General: She is a pleasant woman in no acute distress. Vital signs: Her temperature is 99.3, pulse of 82, blood pressure 129/54, respiratory rate 20, O2 saturation is 96% on room air. HEENT: She is normocephalic. Her eyes are anicteric. Neck: Supple. Lungs: Have diffuse wheezes throughout. Heart: Regular rate and rhythm. Abdomen: Soft, nontender. Extremities: We removed the dressing from her right foot. She has multiple sutures. She has very scant amount of serous drainage, which was cultured. There is no associated purulence or erythema of the foot. LABORATORIES: Notable for a white count of 6.5, hemoglobin 7.6, platelets are 212. INR is 1.7. BUN 28, creatinine 1.4. Chest x-ray is negative for infiltrates. Cultures are all pending as well as a legionella antigen and a sputum culture. SUMMARY: 1. This is an 85-year-old woman, hospital day No. 7, admitted for acute deep venous thrombosis status post thrombectomy on the , now with acute onset of cough and fever and chills with wheezing. No prior history of asthma. No sick contacts. Yellow sputum. Negative chest x-ray. No hypoxia. Would be concerned whether this is viral. Would repeat an influenza screen with screen for respiratory syncytial virus II, possible bacterial bronchitis. Would continue the Levaquin. 2. History of deep venous thrombosis, pulmonary embolism. Management per primary service. 3. Recent plastic surgery of foot. There are no signs of cellulitis or purulence. 4. Multiple antibiotic allergies. We called her pharmacy, and she has tolerated cephalosporins successfully, Keflex in the past. So, this would be an option if needed. Further recommendations to follow based on her clinical course. Sanjay [id number]
--- NOTE | 2016-06-25 14:58 | PN ---
Teaching Attending Note Name of Resident: Wandy Goff ATTENDING PHYSICIAN STATEMENT I saw and evaluated the patient. I reviewed the resident's note and discussed the case with the resident. I agree with the resident's findings and plan as documented. SUBJECTIVE: Continues to have more cough with productive sputum yellowish and c/o fever, chills.and sore throat OBJECTIVE: Vital Signs Temperature 99.3 F 06/25/16 09:29 Pulse Rate 82 06/25/16 09:29 Respiratory Rate 20 06/25/16 09:29 Blood Pressure 129/54 06/25/16 09:29 O2 Sat by Pulse Oximetry (%) 90 L 06/24/16 21:00 LUNG positive for wheezing bl CBCD WBC 6.5 K/mm3 (4.0-10.0) 06/24/16 22:20 RBC 2.88 M/mm3 (3.60-5.2) L 06/24/16 22:20 Hgb 7.6 GM/dL (10.7-15.3) L 06/24/16 22:20 Hct 22.7 % (32.4-45.2) L 06/24/16 22:20 MCV 78.9 fl (80-96) L 06/24/16 22:20 MCHC 33.5 g/dl (32.0-36.0) 06/24/16 22:20 RDW 15.6 % (11.6-15.6) 06/24/16 22:20 Plt Count 212 K/MM3 (134-434) 06/24/16 22:20 MPV 8.5 fl (7.5-11.1) 06/24/16 22:20 CMP Sodium 141 mmol/L (136-145) 06/25/16 06:15 Potassium 4.4 mmol/L (3.5-5.1) 06/25/16 06:15 Chloride 105 mmol/L (98-107) 06/25/16 06:15 Carbon Dioxide 28 mmol/L (21-32) 06/25/16 06:15 Anion Gap 8 (8-16) 06/25/16 06:15 BUN 28 mg/dL (7-18) H D 06/25/16 06:15 Creatinine 1.4 mg/dL (0.55-1.02) H 06/25/16 06:15 Creat Clearance w eGFR 28.50 (>60) 06/20/16 06:35 Random Glucose 94 mg/dL (74-106) 06/25/16 06:15 Calcium 8.8 mg/dL (8.5-10.1) 06/25/16 06:15 Total Bilirubin 0.5 mg/dL (0.2-1.0) D 06/20/16 06:35 AST 15 U/L (15-37) 06/20/16 06:35 ALT 16 U/L (12-78) 06/20/16 06:35 Alkaline Phosphatase 73 U/L (45-117) 06/20/16 06:35 Total Protein 7.1 g/dl (6.4-8.2) 06/20/16 06:35 Albumin 3.6 g/dl (3.4-5.0) 06/20/16 06:35 CARDIAC ENZYMES Troponin I < 0.02 ng/ml (0.00-0.05) 06/24/16 22:20 Current Medications Generic Name Dose Route Start Last Admin Trade Name Freq PRN Reason Stop Dose Admin Albuterol/Ipratropium 1 amp 06/24/16 10:00 06/25/16 14:05 Duoneb - NEB Not Given Q4HPO FLEX Amlodipine Besylate 5 mg 06/25/16 10:00 06/25/16 11:07 Norvasc - PO 5 mg DAILY FLEX Administration Atorvastatin Calcium 10 mg 06/19/16 22:00 06/24/16 21:42 Lipitor - PO 10 mg HS FLEX Administration Bisacodyl 10 mg 06/20/16 16:11 06/24/16 18:20 Dulcolax Suppository - RC 10 mg DAILY PRN Administration CONSTIPATION Docusate Sodium 100 mg 06/19/16 14:00 06/25/16 14:26 Colace - PO 100 mg TID FLEX Administration Guaifenesin/Codeine Phosphate 5 ml 06/24/16 06:45 06/25/16 14:26 Robitussin Ac - PO 5 ml Q8H PRN Administration Levofloxacin 50 mls @ 50 mls/hr 06/25/16 22:00 Levaquin 250 Mg Premixed Ivpb - IVPB DAILY@2200 [facility] Labetalol HCl 200 mg 06/24/16 17:20 06/25/16 11:07 Normodyne - PO 200 mg BID FLEX Administration Oxycodone HCl 5 mg 06/20/16 15:31 06/25/16 11:07 Roxicodone - PO 5 mg Q4H PRN Administration Polyethylene Glycol 17 gm 06/20/16 15:00 06/25/16 11:06 Miralax (For Daily Use) - PO 17 gm DAILY FLEX Administration Rivaroxaban 15 mg 06/24/16 22:00 06/25/16 11:08 Xarelto - PO 15 mg BID FLEX Administration Trazodone HCl 50 mg 06/19/16 22:00 06/24/16 21:42 Desyrel - PO 50 mg HS FLEX Administration Medication Instructions Recorded Amlodipine Besylate [Norvasc -] 5 mg PO DAILY 06/19/16 Atorvastatin Ca [Lipitor] 5 mg PO DAILY 06/19/16 Oxycodone HCl/Acetaminophen 1 tab PO Q4H 06/19/16 [Percocet 5-325 mg Tablet] Rivaroxaban [Xarelto -] 20 mg PO ASDIR 06/19/16 Tizanidine HCl [Zanaflex] 2 mg PO TID PRN 06/19/16 Trazodone HCl [Desyrel -] 50 mg PO ASDIR 06/19/16 Triamterene/Hydrochlorothiazid 1 each PO ASDIR 06/19/16 [Triamterene-Hctz 37.5-25 mg Cp] Valsartan [Diovan] 160 mg PO ASDIR 06/19/16 06/22/16 23:30 Urine - Urine Clean Catch Urine Culture - Preliminary Lactose Fermenting Neg Bacilli 06/23/16 11:20 Nasopharyngeal Swab Respiratory Virus Panel - Preliminary 06/23/16 11:20 Nasopharyngeal Swab Influenza Types A,B Antigen (MAGI) - Final 06/23/16 11:20 Nasopharyngeal Swab - Final ASSESSMENT AND PLAN: 85 y/o very pleasant lady with h/o HTN, HLP, and 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 # Acute Bronchitis on Levaquin will continue will monitor for sepsis; with acute onset of cough and fever with chills and wheezing with no history of asthma cxray negative, pulse ox RA 96%, Tmax 101.6 last night, now afebrile influenza screen negative on 06/23, screen for RSV too # Acute Extensive LLE DVT in common femoral, femoral and popliteal veins. s/p thrombectomy by IR OFF heparin gtt . On Xarelto now 15mg po bid since her kidney function is back to normal. will need repeat IR eval in 3 weeks and endovascular US. Percocet for pain control # Anemia : monitor h/h dropped recheck level in am type and screen # Acute renal failure over chronic : base line 1.5 .Improved back to normal cont to hold diovan and diuretics , Nephrology on board. # Recent rearrangement of R Leg non healing wound on 06/16. cont cast Dr. Bustamante was contacted. F/u with him as an outpatient # HTN: hold ARB and diuretics as above. discontinue Norvasc and increased labetalol dose . #H/O HLP: cont meds DVT Px: Xarelto
--- NOTE | 2016-06-25 16:32 | PN ---
Progress Note, Physician History of Present Illness: Pt seen and examined at bedside. She is awake and alert. She denies shortness of breath. - Current Medication List Current Medications: Active Medications Acetaminophen (Tylenol -) 325 mg PO Q6H PRN PRN Reason: FEVER OR PAIN Albuterol/Ipratropium (Duoneb -) 1 amp NEB Q4HPO [facility] Last Admin: 06/25/16 14:05 Dose: Not Given Atorvastatin Calcium (Lipitor -) 10 mg PO [facility] Last Admin: 06/24/16 21:42 Dose: 10 mg Bisacodyl (Dulcolax Suppository -) 10 mg RC DAILY PRN PRN Reason: CONSTIPATION Last Admin: 06/24/16 18:20 Dose: 10 mg Docusate Sodium (Colace -) 100 mg PO TID [facility] Last Admin: 06/25/16 14:26 Dose: 100 mg Guaifenesin/Codeine Phosphate (Robitussin Ac -) 10 ml PO Q6H PRN PRN Reason: COUGH Levofloxacin (Levaquin 250 Mg Premixed Ivpb -) 50 mls @ 50 mls/hr IVPB DAILY@ 2200 [facility] Labetalol HCl (Normodyne -) 200 mg PO BID [facility] Last Admin: 06/25/16 11:07 Dose: 200 mg Methylprednisolone Sodium Succinate (Solu-Medrol -) 40 mg IVPB BID [facility] Oxycodone HCl (Roxicodone -) 5 mg PO Q4H PRN Last Admin: 06/25/16 16:05 Dose: 5 mg Polyethylene Glycol (Miralax (For Daily Use) -) 17 gm PO DAILY [facility] Last Admin: 06/25/16 11:06 Dose: 17 gm Rivaroxaban (Xarelto -) 15 mg PO BID [facility] Last Admin: 06/25/16 11:08 Dose: 15 mg Trazodone HCl (Desyrel -) 50 mg PO [facility] Last Admin: 06/24/16 21:42 Dose: 50 mg - Objective Vital Signs: Vital Signs Temperature 99.7 F H 06/25/16 14:56 Pulse Rate 75 06/25/16 14:56 Respiratory Rate 20 06/25/16 14:56 Blood Pressure 118/49 06/25/16 14:56 O2 Sat by Pulse Oximetry (%) 96 06/25/16 10:00 Constitutional: Yes: Calm Eyes: Yes: Conjunctiva Clear HENT: Yes: Atraumatic Cardiovascular: Yes: S1, S2 Respiratory: Yes: CTA Bilaterally Gastrointestinal: Yes: Soft, Abdomen, Obese Musculoskeletal: Yes: Other (right ankle pain) Edema: Yes Edema: LLE: 1+ Neurological: Yes: Oriented Psychiatric: Yes: Oriented Labs: CBC, BMP 06/24/16 22:20 06/25/16 06:15 INR, PTT INR 1.75 (0.82-1.09) H D 06/25/16 06:15 Problem List - Problems (1) DVT (deep venous thrombosis) Code(s): I82.409 - ACUTE EMBOLISM AND THOMBOS UNSP DEEP VN UNSP LOWER EXTREMITY Qualifiers: DVT location: lower extremity Affected thrombotic vein of extremity: unspecified vein of extremity Laterality: left Chronicity: acute Qualified Code(s): I82.402 - Acute embolism and thrombosis of unspecified deep veins of left lower extremity (2) DVT prophylaxis Code(s): IAK3412 - (3) Hyperlipemia Code(s): E78.5 - HYPERLIPIDEMIA, UNSPECIFIED (4) Hypertension Code(s): I10 - ESSENTIAL (PRIMARY) HYPERTENSION (5) KONRAD (acute kidney injury) Code(s): N17.9 - ACUTE KIDNEY FAILURE, UNSPECIFIED (6) Pulmonary embolism Code(s): I26.99 - OTHER PULMONARY EMBOLISM WITHOUT ACUTE COR PULMONALE Assessment/Plan Current Medications Generic Name Dose Route Start Last Admin Trade Name Freq PRN Reason Stop Dose Admin Acetaminophen 325 mg 06/25/16 16:12 Tylenol - PO Q6H PRN FEVER OR PAIN Albuterol/Ipratropium 1 amp 06/24/16 10:00 06/25/16 14:05 Duoneb - NEB Not Given Q4HPO FLEX Atorvastatin Calcium 10 mg 06/19/16 22:00 06/24/16 21:42 Lipitor - PO 10 mg HS FLEX Administration Bisacodyl 10 mg 06/20/16 16:11 06/24/16 18:20 Dulcolax Suppository - RC 10 mg DAILY PRN Administration CONSTIPATION Docusate Sodium 100 mg 06/19/16 14:00 06/25/16 14:26 Colace - PO 100 mg TID FLEX Administration Guaifenesin/Codeine Phosphate 10 ml 06/25/16 15:01 Robitussin Ac - PO Q6H PRN COUGH Levofloxacin 50 mls @ 50 mls/hr 06/25/16 22:00 Levaquin 250 Mg Premixed Ivpb - IVPB DAILY@2200 [facility] Labetalol HCl 200 mg 06/24/16 17:20 06/25/16 11:07 Normodyne - PO 200 mg BID FLEX Administration Methylprednisolone Sodium Succinate 40 mg 06/25/16 22:00 Solu-Medrol - IVPB BID FLEX Oxycodone HCl 5 mg 06/20/16 15:31 06/25/16 16:05 Roxicodone - PO 5 mg Q4H PRN Administration Polyethylene Glycol 17 gm 06/20/16 15:00 06/25/16 11:06 Miralax (For Daily Use) - PO 17 gm DAILY FLEX Administration Rivaroxaban 15 mg 06/24/16 22:00 06/25/16 11:08 Xarelto - PO 15 mg BID FLEX Administration Trazodone HCl 50 mg 06/19/16 22:00 06/24/16 21:42 Desyrel - PO 50 mg HS FLEX Administration Laboratory Tests 06/24/16 06:00 Urine Color Straw Urine Appearance Clear Urine pH 6.0 Ur Specific [place] 1.011 Urine Protein Negative Urine Glucose (UA) Negative Urine Ketones Negative Urine Blood Negative Urine Nitrite Negative Urine Bilirubin Negative Urine Urobilinogen Negative Ur Leukocyte Esterase Negative Impression 1. KONRAD 2. DVT acute 3. hx of PE 4. HTN 5. hyperlipidemia Plan - renal function continues to stabilize - repeat labs in am - can see in office for renal workup - avoid nsaids - UA reviewed - pts baseline creatinine is about 1.5 - will need to dose anticoagulants based on the clearance - diuretics are currently on hold - nsaid use may have contributed to the KONRAD - BP is stable on labetolol Dr Holloway
[2016-06-25] MEDS: methylPREDNISolone NA SUCC 40 MG/1 ML VIAL IVPB SCH (21:33)
[2016-06-25] MEDS: traZODone HCL 50 MG TABLET (FP) PO SCH (21:33)
[2016-06-25] MEDS: ATORVASTATIN CA 10 MG TABLET (FP) PO SCH (21:33)
[2016-06-25] MEDS: LEVOFLOXACIN 250 MG IVPB 50 ML IVPB SCH (21:33)
[2016-06-26] MEDS: ALBUTEROL SO4 2.5/IPRATROPIUM 0.5 INH SOL 3 ML VIAL.NEB. NEB SCH ×6 (02:30→22:21)
[2016-06-26] MEDS: oxyCODONE HCL 5 MG TABLET PO PRN ×2 (03:22→17:17)
[2016-06-26] MEDS: DOCUSATE SODIUM 100 MG CAPSULE (FP) PO SCH ×3 (06:11→22:39)
[2016-06-26 07:46] LABS: MCH 26.9 pg (25.7-33.7); MCHC 34.1 g/dl (32.0-36.0); MEAN CELL VOLUME 78.9 fl (80-96); MEAN PLT VOLUME 7.9 fl (7.5-11.1); PLATELET COUNT 224 K/MM3 (134-434); RDW 15.8 % (11.6-15.6); WHITE BLOOD COUNT 6.3 K/mm3 (4.0-10.0)
[2016-06-26 08:16] LABS: INR 2.22 (0.82-1.09); PROTHROMBIN TIME (PATIENT) 24.8 SEC (9.98-11.88)
[2016-06-26 08:18] LABS: ACTIVATED PTT 41.4 SECONDS (26.9-34.4)
[2016-06-26 08:41] LABS: CALCIUM 8.6 mg/dL (8.5-10.1); CREATININE 1.4 mg/dL (0.55-1.02)
[2016-06-26] MEDS ORDERED: PT OWN MED DRAWER 7, Y5N ONE (10:33)
[2016-06-26] MEDS: POLYETHYLENE GLYCOL 3350 119 GM BTL PO SCH (10:37)
[2016-06-26] MEDS: methylPREDNISolone NA SUCC 40 MG/1 ML VIAL IVPB SCH ×2 (10:38→22:39)
[2016-06-26] MEDS: RIVAROXABAN 15 MG TABLET PO SCH ×2 (10:38→22:39)
[2016-06-26] MEDS: LABETALOL HCL 200 MG TABLET (FP) PO SCH ×2 (10:39→22:39)
--- NOTE | 2016-06-26 11:15 | PN ---
Progress Note, Physician Chief Complaint: ID Subjective improvement Still couphing No SOB Levoflox and steroids - Current Medication List Current Medications: Active Medications Acetaminophen (Tylenol -) 325 mg PO Q6H PRN PRN Reason: FEVER OR PAIN Albuterol/Ipratropium (Duoneb -) 1 amp NEB Q4HPO [facility] Last Admin: 06/26/16 06:26 Dose: 1 amp Atorvastatin Calcium (Lipitor -) 10 mg PO HS [facility] Last Admin: 06/25/16 21:33 Dose: 10 mg Bisacodyl (Dulcolax Suppository -) 10 mg RC DAILY PRN PRN Reason: CONSTIPATION Last Admin: 06/24/16 18:20 Dose: 10 mg Docusate Sodium (Colace -) 100 mg PO TID [facility] Last Admin: 06/26/16 06:11 Dose: 100 mg Guaifenesin/Codeine Phosphate (Robitussin Ac -) 10 ml PO Q6H PRN PRN Reason: COUGH Last Admin: 06/25/16 21:42 Dose: 10 ml Levofloxacin (Levaquin 250 Mg Premixed Ivpb -) 50 mls @ 50 mls/hr IVPB DAILY@ 2200 [facility] Last Admin: 06/25/16 21:33 Dose: 50 mls/hr Labetalol HCl (Normodyne -) 200 mg PO BID [facility] Last Admin: 06/26/16 10:39 Dose: 200 mg Methylprednisolone Sodium Succinate (Solu-Medrol -) 40 mg IVPB BID [facility] Last Admin: 06/26/16 10:38 Dose: 40 mg Oxycodone HCl (Roxicodone -) 5 mg PO Q4H PRN Last Admin: 06/26/16 03:22 Dose: 5 mg Polyethylene Glycol (Miralax (For Daily Use) -) 17 gm PO DAILY [facility] Last Admin: 06/26/16 10:37 Dose: 17 gm Rivaroxaban (Xarelto -) 15 mg PO BID [facility] Last Admin: 06/26/16 10:38 Dose: 15 mg Trazodone HCl (Desyrel -) 50 mg PO HS [facility] Last Admin: 06/25/16 21:33 Dose: 50 mg - Objective Vital Signs: Vital Signs Temperature 98.1 F 06/26/16 06:00 Pulse Rate 68 06/26/16 06:00 Respiratory Rate 20 06/26/16 06:00 Blood Pressure 118/55 06/26/16 06:00 O2 Sat by Pulse Oximetry (%) 91 L 06/25/16 21:00 Constitutional: Yes: No Distress HENT: Yes: WNL, Atraumatic Neck: Yes: WNL, Supple Cardiovascular: Yes: Regular Rate and Rhythm, S1, S2. No: Murmur Respiratory: Yes: Rhonchi Gastrointestinal: Yes: Soft. No: Tenderness Extremities: Yes: Other (Right leg dressing) Labs: CBC, BMP 06/26/16 06:30 06/26/16 06:30 INR, PTT INR 2.22 (0.82-1.09) H 06/26/16 06:30 Assessment/Plan Microbiology 06/25/16 18:00 Nasopharyngeal Swab Influenza Types A,B Antigen (MAGI) - Final 06/25/16 18:00 Nasopharyngeal Swab - Final 06/25/16 07:16 Sputum - Expectorated Sputum Culture - Preliminary [facility] Laboratory Tests 06/25/16 06/26/16 18:00 06:30 WBC 6.3 RBC 2.95 L Hgb 7.9 L Plt Count 224 RSV Ag Report Status Negative Assessment Fever with URI History of DVT Plan Continue current therapy Rupinder PEREZ
[2016-06-26] MEDS: guaiFENesin/CODEINE 5 ML UNIT-DOSE CUPS PO PRN ×2 (11:34→22:39)
--- NOTE | 2016-06-26 12:34 | PN ---
Progress Note (short form) - Note Progress Note: RENAL Pt is awake and alert feels better s/p thrombectomy Last Vital Signs Temp Pulse Resp BP Pulse Ox 98.1 F 68 20 118/55 91 L 06/26/16 06:00 06/26/16 06:00 06/26/16 06:00 06/26/16 06:00 06/25/16 21:00 lungs wheezes, decreased breath sounds cvs s1s2 rr abd soft ext right lower extremity wrapped, left lower trace edema neuro a+ox3 CBC, BMP 06/26/16 06:30 06/26/16 06:30 Current Medications Generic Name Dose Route Start Last Admin Trade Name Freq PRN Reason Stop Dose Admin Acetaminophen 325 mg 06/25/16 16:12 Tylenol - PO Q6H PRN FEVER OR PAIN Albuterol/Ipratropium 1 amp 06/24/16 10:00 06/26/16 06:26 Duoneb - NEB 1 amp Q4HPO FLEX Administration Atorvastatin Calcium 10 mg 06/19/16 22:00 06/25/16 21:33 Lipitor - PO 10 mg HS FLEX Administration Bisacodyl 10 mg 06/20/16 16:11 06/24/16 18:20 Dulcolax Suppository - RC 10 mg DAILY PRN Administration CONSTIPATION Docusate Sodium 100 mg 06/19/16 14:00 06/26/16 06:11 Colace - PO 100 mg TID FLEX Administration Guaifenesin/Codeine Phosphate 10 ml 06/25/16 15:01 06/26/16 11:34 Robitussin Ac - PO 10 ml Q6H PRN Administration COUGH Levofloxacin 50 mls @ 50 mls/hr 06/25/16 22:00 06/25/16 21:33 Levaquin 250 Mg Premixed Ivpb - IVPB 50 mls/hr DAILY@2200 FLEX Administration Labetalol HCl 200 mg 06/24/16 17:20 06/26/16 10:39 Normodyne - PO 200 mg BID FLEX Administration Methylprednisolone Sodium Succinate 40 mg 06/25/16 22:00 06/26/16 10:38 Solu-Medrol - IVPB 40 mg BID FLEX Administration Oxycodone HCl 5 mg 06/20/16 15:31 06/26/16 03:22 Roxicodone - PO 5 mg Q4H PRN Administration Polyethylene Glycol 17 gm 06/20/16 15:00 06/26/16 10:37 Miralax (For Daily Use) - PO 17 gm DAILY FLEX Administration Rivaroxaban 15 mg 06/24/16 22:00 06/26/16 10:38 Xarelto - PO 15 mg BID FLEX Administration Trazodone HCl 50 mg 06/19/16 22:00 06/25/16 21:33 Desyrel - PO 50 mg HS FLEX Administration IMPRESSION 1. KONRAD stable renal function 2. DVT acute 3. hx of PE 4. HTN 5. hyperlipidemia PLAN continue current management will monitor renal function MV
--- NOTE | 2016-06-26 15:36 | PN ---
Physical Exam: SUBJECTIVE: Patient seen and examined Patient continues to cough with no acute distress. low grade fever. OBJECTIVE: Vital Signs Period Temp Pulse Resp BP Sys/Ann Pulse Ox Last 24 Hr 98.1 F-100 F 68-78 20-20 110-134/45-62 91 GENERAL: The patient is awake, alert, and fully oriented, in no acute distress. HEAD: Normal with no signs of trauma. EYES: PERRL, extraocular movements intact, sclera anicteric, conjunctiva clear. No ptosis. ENT: Ears normal, oropharynx clear without exudates, moist mucous membranes. NECK: Trachea midline, full range of motion, supple. LUNGS: positive for wheeze BL, no crackles, no accessory muscle use. HEART: Regular rate and rhythm, S1, S2 positive, ILEANA 2/6 no rub or gallop. ABDOMEN: Soft, nontender, nondistended, normoactive bowel sounds, no guarding, no rebound, no hepatosplenomegaly, no masses. EXTREMITIES: 2+ pulses, warm, well-perfused, no edema. NEUROLOGICAL: Cranial nerves II through XII grossly intact. Normal speech. PSYCH: Normal mood, normal affect. SKIN: Warm, dry, normal turgor, no rashes or lesions noted Laboratory Results - last 24 hr 06/25/16 06/26/16 06/26/16 18:00 06:30 06:30 WBC 6.3 RBC 2.95 L Hgb 7.9 L Hct 23.3 L MCV 78.9 L MCHC 34.1 RDW 15.8 H Plt Count 224 MPV 7.9 Retic Count INR 2.22 H PTT (Actin FS) 41.4 H Sodium Potassium Chloride Carbon Dioxide Anion Gap BUN Creatinine Random Glucose Calcium Ferritin RSV Ag Report Status Negative 06/26/16 06/26/16 06/26/16 06:30 06:30 06:30 WBC RBC Hgb Hct MCV MCHC RDW Plt Count MPV Retic Count 1.57 H INR PTT (Actin FS) Sodium 139 Potassium 4.8 Chloride 104 Carbon Dioxide 25 Anion Gap 10 BUN 22 H D Creatinine 1.4 H Random Glucose 140 H D Calcium 8.6 Ferritin 136.176 RSV Ag Report Status Active Medications Generic Name Dose Route Start Last Admin Trade Name Freq PRN Reason Stop Dose Admin Acetaminophen 325 mg 06/25/16 16:12 Tylenol - PO Q6H PRN FEVER OR PAIN Albuterol/Ipratropium 1 amp 06/24/16 10:00 06/26/16 10:00 Duoneb - NEB 1 amp Q4HPO FLEX Administration Atorvastatin Calcium 10 mg 06/19/16 22:00 06/25/16 21:33 Lipitor - PO 10 mg HS FLEX Administration Bisacodyl 10 mg 06/20/16 16:11 06/24/16 18:20 Dulcolax Suppository - RC 10 mg DAILY PRN Administration CONSTIPATION Docusate Sodium 100 mg 06/19/16 14:00 06/26/16 14:22 Colace - PO 100 mg TID FLEX Administration Guaifenesin/Codeine Phosphate 10 ml 06/25/16 15:01 06/26/16 11:34 Robitussin Ac - PO 10 ml Q6H PRN Administration COUGH Levofloxacin 50 mls @ 50 mls/hr 06/25/16 22:00 06/25/16 21:33 Levaquin 250 Mg Premixed Ivpb - IVPB 50 mls/hr DAILY@2200 FLEX Administration Labetalol HCl 200 mg 06/24/16 17:20 06/26/16 10:39 Normodyne - PO 200 mg BID FLEX Administration Methylprednisolone Sodium Succinate 40 mg 06/25/16 22:00 06/26/16 10:38 Solu-Medrol - IVPB 40 mg BID FLEX Administration Oxycodone HCl 5 mg 06/20/16 15:31 06/26/16 03:22 Roxicodone - PO 5 mg Q4H PRN Administration Polyethylene Glycol 17 gm 06/20/16 15:00 06/26/16 10:37 Miralax (For Daily Use) - PO 17 gm DAILY FLEX Administration Rivaroxaban 15 mg 06/24/16 22:00 06/26/16 10:38 Xarelto - PO 15 mg BID FLEX Administration Trazodone HCl 50 mg 06/19/16 22:00 06/25/16 21:33 Desyrel - PO 50 mg HS FLEX Administration ASSESSMENT/PLAN: 85 y/o very pleasant lady with h/o HTN, HLP, and 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 # Acute Bronchitis on Levaquin will continue for now, patient is improving , wheezing continues with no history of asthma influenza screen negative on 06/23, screen for RSV too , ON IV solu-medrol continue for now # Acute Extensive LLE DVT in common femoral, femoral and popliteal veins. s/p thrombectomy by IR OFF heparin gtt . On Xarelto now 15mg po bid since her kidney function is back to normal. will need repeat IR eval in 3 weeks and endovascular US. Percocet for pain control # Anemia : monitor h/h dropped recheck level in am type and screen # Acute renal failure over chronic : cr. is 1.4 today .Improved back to normal cont to hold diovan and diuretics , Nephrology on board. # Recent rearrangement of R Leg non healing wound on 06/16. cont cast ,patient will follow up with Dr. Bustamante as an outpatient # HTN: hold ARB and diuretics as above. discontinue Norvasc and increased labetalol dose . #H/O HLP: cont meds DVT Px: Xarelto Visit type - Emergency Visit Emergency Visit: Yes ED Registration Date: 06/19/16 Care time: The patient presented to the Emergency Department on the above date and was hospitalized for further evaluation of their emergent condition. - New Patient This patient is new to me today: No - Critical Care Critical Care patient: No
[2016-06-26] MEDS: ACETAMINOPHEN 325 MG TABLET (FP) PO PRN (17:17)
[2016-06-26] MEDS: ATORVASTATIN CA 10 MG TABLET (FP) PO SCH (22:39)
[2016-06-26] MEDS: LEVOFLOXACIN 250 MG IVPB 50 ML IVPB SCH (22:39)
[2016-06-26] MEDS: traZODone HCL 50 MG TABLET (FP) PO SCH (22:39)
[2016-06-27] MEDS: ALBUTEROL SO4 2.5/IPRATROPIUM 0.5 INH SOL 3 ML VIAL.NEB. NEB SCH ×6 (02:35→22:00)
[2016-06-27] MEDS: DOCUSATE SODIUM 100 MG CAPSULE (FP) PO SCH ×3 (06:04→22:46)
[2016-06-27] MEDS: oxyCODONE HCL 5 MG TABLET PO PRN ×3 (06:19→22:47)
[2016-06-27] MEDS: ACETAMINOPHEN 325 MG TABLET (FP) PO PRN ×3 (06:20→22:48)
[2016-06-27 08:10] LABS: SERUM IRON 24 ug/dL (27-139); TOTAL IRON BINDING CAPACITY 295 ug/dL (250-450); UIBC 271 ug/dL (118-369)
[2016-06-27] MEDS ORDERED: PT OWN MED DRAWER 7, Y5N ONE ×3 (10:17→22:23)
[2016-06-27] MEDS: LABETALOL HCL 200 MG TABLET (FP) PO SCH ×2 (10:26→22:46)
[2016-06-27] MEDS: POLYETHYLENE GLYCOL 3350 119 GM BTL PO SCH (10:27)
[2016-06-27] MEDS: RIVAROXABAN 15 MG TABLET PO SCH ×2 (10:28→22:46)
[2016-06-27] MEDS: methylPREDNISolone NA SUCC 40 MG/1 ML VIAL IVPB SCH ×2 (10:34→22:49)
--- NOTE | 2016-06-27 11:24 | PN ---
Progress Note (short form) - Note Progress Note: RENAL Pt is awake and alert feels better. Still coughing s/p thrombectomy Last Vital Signs Temp Pulse Resp BP Pulse Ox 98.0 F 66 20 140/64 96 06/27/16 10:00 06/27/16 10:00 06/27/16 10:00 06/27/16 10:00 06/26/16 22:00 lungs wheezes, decreased breath sounds cvs s1s2 rr abd soft ext right lower extremity wrapped, left lower trace edema neuro a+ox3 CBC, BMP 06/26/16 06:30 06/26/16 06:30 Current Medications Generic Name Dose Route Start Last Admin Trade Name Freq PRN Reason Stop Dose Admin Acetaminophen 325 mg 06/25/16 16:12 06/27/16 06:20 Tylenol - PO 325 mg Q6H PRN Administration FEVER OR PAIN Albuterol/Ipratropium 1 amp 06/24/16 10:00 06/27/16 10:12 Duoneb - NEB 1 amp Q4HPO FLEX Administration Atorvastatin Calcium 10 mg 06/19/16 22:00 06/26/16 22:39 Lipitor - PO 10 mg HS FLEX Administration Bisacodyl 10 mg 06/20/16 16:11 06/24/16 18:20 Dulcolax Suppository - RC 10 mg DAILY PRN Administration CONSTIPATION Docusate Sodium 100 mg 06/19/16 14:00 06/27/16 06:04 Colace - PO 100 mg TID FLEX Administration Guaifenesin/Codeine Phosphate 10 ml 06/25/16 15:01 06/26/16 22:39 Robitussin Ac - PO 10 ml Q6H PRN Administration COUGH Levofloxacin 50 mls @ 50 mls/hr 06/25/16 22:00 06/26/16 22:39 Levaquin 250 Mg Premixed Ivpb - IVPB 50 mls/hr DAILY@2200 FLEX Administration Labetalol HCl 200 mg 06/24/16 17:20 06/27/16 10:26 Normodyne - PO 200 mg BID FLEX Administration Methylprednisolone Sodium Succinate 40 mg 06/25/16 22:00 06/27/16 10:34 Solu-Medrol - IVPB 40 mg BID FLEX Administration Oxycodone HCl 5 mg 06/20/16 15:31 06/27/16 06:19 Roxicodone - PO 5 mg Q4H PRN Administration Polyethylene Glycol 17 gm 06/20/16 15:00 06/27/16 10:27 Miralax (For Daily Use) - PO 17 gm DAILY FLEX Administration Rivaroxaban 15 mg 06/24/16 22:00 06/27/16 10:28 Xarelto - PO 15 mg BID FLEX Administration Trazodone HCl 50 mg 06/19/16 22:00 06/26/16 22:39 Desyrel - PO 50 mg HS FLEX Administration IMPRESSION 1. KONRAD stable renal function 2. DVT acute 3. hx of PE 4. HTN 5. hyperlipidemia PLAN continue current management will monitor renal function continue albuterol MV
--- NOTE | 2016-06-27 19:19 | PN ---
Physical Exam: SUBJECTIVE: Patient seen and examined Patient is afebrile, but still coughing. OBJECTIVE: Vital Signs Period Temp Pulse Resp BP Sys/Ann Pulse Ox Last 24 Hr 98.0 F-98.8 F 66-97 18-22 130-144/62-67 95-96 GENERAL: The patient is awake, alert, and fully oriented, in no acute distress. HEAD: Normal with no signs of trauma. EYES: PERRL, extraocular movements intact, sclera anicteric, conjunctiva clear. ENT: Ears normal, oropharynx clear without exudates, moist mucous membranes. NECK: Trachea midline, full range of motion, supple. LUNGS: positive for wheeze BL, no crackles, no accessory muscle use. HEART: Regular rate and rhythm, S1, S2 positive, ILEANA 2/6 no rub or gallop. ABDOMEN: Soft, nontender, nondistended, normoactive bowel sounds, no guarding, no rebound, no hepatosplenomegaly, no masses. EXTREMITIES: 2+ pulses, warm, well-perfused, no edema. NEUROLOGICAL: Cranial nerves II through XII grossly intact. Normal speech. PSYCH: Normal mood, normal affect. SKIN: Warm, dry, normal turgor, no rashes or lesions noted CBCD WBC 6.3 K/mm3 (4.0-10.0) 06/26/16 06:30 RBC 2.95 M/mm3 (3.60-5.2) L 06/26/16 06:30 Hgb 7.9 GM/dL (10.7-15.3) L 06/26/16 06:30 Hct 23.3 % (32.4-45.2) L 06/26/16 06:30 MCV 78.9 fl (80-96) L 06/26/16 06:30 MCHC 34.1 g/dl (32.0-36.0) 06/26/16 06:30 RDW 15.8 % (11.6-15.6) H 06/26/16 06:30 Plt Count 224 K/MM3 (134-434) 06/26/16 06:30 MPV 7.9 fl (7.5-11.1) 06/26/16 06:30 CMP Sodium 139 mmol/L (136-145) 06/26/16 06:30 Potassium 4.8 mmol/L (3.5-5.1) 06/26/16 06:30 Chloride 104 mmol/L (98-107) 06/26/16 06:30 Carbon Dioxide 25 mmol/L (21-32) 06/26/16 06:30 Anion Gap 10 (8-16) 06/26/16 06:30 BUN 22 mg/dL (7-18) H D 06/26/16 06:30 Creatinine 1.4 mg/dL (0.55-1.02) H 06/26/16 06:30 Creat Clearance w eGFR 28.50 (>60) 06/20/16 06:35 Random Glucose 140 mg/dL (74-106) H D 06/26/16 06:30 Calcium 8.6 mg/dL (8.5-10.1) 06/26/16 06:30 Total Bilirubin 0.5 mg/dL (0.2-1.0) D 06/20/16 06:35 AST 15 U/L (15-37) 06/20/16 06:35 ALT 16 U/L (12-78) 06/20/16 06:35 Alkaline Phosphatase 73 U/L (45-117) 06/20/16 06:35 Total Protein 7.1 g/dl (6.4-8.2) 06/20/16 06:35 Albumin 3.6 g/dl (3.4-5.0) 06/20/16 06:35 CARDIAC ENZYMES Troponin I < 0.02 ng/ml (0.00-0.05) 06/24/16 22:20 Laboratory Results - last 24 hr 06/26/16 06:30 Iron 24 L TIBC 295 Iron Saturation 8 L Active Medications Generic Name Dose Route Start Last Admin Trade Name Freq PRN Reason Stop Dose Admin Acetaminophen 325 mg 06/25/16 16:12 06/27/16 12:08 Tylenol - PO 325 mg Q6H PRN Administration FEVER OR PAIN Albuterol/Ipratropium 1 amp 06/24/16 10:00 06/27/16 19:07 Duoneb - NEB 1 amp Q4HPO FLEX Administration Atorvastatin Calcium 10 mg 06/19/16 22:00 06/26/16 22:39 Lipitor - PO 10 mg HS FLEX Administration Bisacodyl 10 mg 06/20/16 16:11 06/24/16 18:20 Dulcolax Suppository - RC 10 mg DAILY PRN Administration CONSTIPATION Docusate Sodium 100 mg 06/19/16 14:00 06/27/16 14:09 Colace - PO 100 mg TID FLEX Administration Guaifenesin/Codeine Phosphate 10 ml 06/25/16 15:01 06/26/16 22:39 Robitussin Ac - PO 10 ml Q6H PRN Administration COUGH Levofloxacin 50 mls @ 50 mls/hr 06/25/16 22:00 06/26/16 22:39 Levaquin 250 Mg Premixed Ivpb - IVPB 50 mls/hr DAILY@2200 FLEX Administration Labetalol HCl 200 mg 06/24/16 17:20 06/27/16 10:26 Normodyne - PO 200 mg BID FLEX Administration Methylprednisolone Sodium Succinate 40 mg 06/25/16 22:00 06/27/16 10:34 Solu-Medrol - IVPB 40 mg BID FLEX Administration Oxycodone HCl 5 mg 06/20/16 15:31 06/27/16 12:08 Roxicodone - PO 5 mg Q4H PRN Administration Polyethylene Glycol 17 gm 06/20/16 15:00 06/27/16 10:27 Miralax (For Daily Use) - PO 17 gm DAILY FLEX Administration Rivaroxaban 15 mg 06/24/16 22:00 06/27/16 10:28 Xarelto - PO 15 mg BID FLEX Administration Trazodone HCl 50 mg 06/19/16 22:00 06/26/16 22:39 Desyrel - PO 50 mg HS FLEX Administration Medication Instructions Recorded Amlodipine Besylate [Norvasc -] 5 mg PO DAILY 06/19/16 Atorvastatin Ca [Lipitor] 5 mg PO DAILY 06/19/16 Oxycodone HCl/Acetaminophen 1 tab PO Q4H 06/19/16 [Percocet 5-325 mg Tablet] Rivaroxaban [Xarelto -] 20 mg PO ASDIR 06/19/16 Tizanidine HCl [Zanaflex] 2 mg PO TID PRN 06/19/16 Trazodone HCl [Desyrel -] 50 mg PO ASDIR 06/19/16 Triamterene/Hydrochlorothiazid 1 each PO ASDIR 06/19/16 [Triamterene-Hctz 37.5-25 mg Cp] Valsartan [Diovan] 160 mg PO ASDIR 06/19/16 ASSESSMENT/PLAN: 85 y/o very pleasant lady with h/o HTN, HLP, and 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 # Acute Bronchitis on Levaquin , patient is improving ,continue steroid 40mg IB bid, influenza screen negative on 06/23, screen for RSV too # Acute Extensive LLE DVT in common femoral, femoral and popliteal veins. s/p thrombectomy by IR OFF heparin gtt . On Xarelto now 15mg po bid since her kidney function is back to normal. will need repeat IR eval in 3 weeks and endovascular US. Percocet for pain control # Anemia : monitor h/h dropped recheck level in am type and screen # Acute renal failure over chronic : base line 1.4 .Improved back to normal cont to hold diovan and diuretics , Nephrology on board. # Recent rearrangement of R Leg non healing wound on 06/16. cont cast [address]. Bustamante was contacted. F/u with him as an outpatient # HTN: hold ARB and diuretics as above. discontinue Norvasc and increased labetalol dose . #H/O HLP: cont meds DVT Px: Xarelto Visit type - Emergency Visit Emergency Visit: Yes ED Registration Date: 06/19/16 Care time: The patient presented to the Emergency Department on the above date and was hospitalized for further evaluation of their emergent condition. - New Patient This patient is new to me today: No - Critical Care Critical Care patient: No
[2016-06-27] MEDS: LEVOFLOXACIN 250 MG IVPB 50 ML IVPB SCH (22:46)
[2016-06-27] MEDS: traZODone HCL 50 MG TABLET (FP) PO SCH (22:46)
[2016-06-27] MEDS: ATORVASTATIN CA 10 MG TABLET (FP) PO SCH (22:46)
[2016-06-27] MEDS: guaiFENesin/CODEINE 5 ML UNIT-DOSE CUPS PO PRN (22:47)
[2016-06-28] MEDS: ALBUTEROL SO4 2.5/IPRATROPIUM 0.5 INH SOL 3 ML VIAL.NEB. NEB SCH ×6 (01:09→22:52)
[2016-06-28] MEDS: DOCUSATE SODIUM 100 MG CAPSULE (FP) PO SCH ×3 (06:21→21:29)
[2016-06-28] MEDS: guaiFENesin/CODEINE 5 ML UNIT-DOSE CUPS PO PRN ×2 (06:35→23:15)
[2016-06-28] MEDS: oxyCODONE HCL 5 MG TABLET PO PRN ×2 (06:47→13:55)
[2016-06-28] MEDS: ACETAMINOPHEN 325 MG TABLET (FP) PO PRN ×2 (06:48→13:55)
[2016-06-28] MEDS: POLYETHYLENE GLYCOL 3350 119 GM BTL PO SCH (09:09)
[2016-06-28] MEDS: LABETALOL HCL 200 MG TABLET (FP) PO SCH ×2 (09:09→21:30)
[2016-06-28] MEDS: methylPREDNISolone NA SUCC 40 MG/1 ML VIAL IVPB SCH ×2 (09:10→17:16)
[2016-06-28] MEDS ORDERED: PT OWN MED DRAWER 7, Y5N ONE ×2 (09:12→21:13)
[2016-06-28] MEDS: RIVAROXABAN 15 MG TABLET PO SCH ×2 (09:12→21:30)
--- NOTE | 2016-06-28 13:56 | PN ---
Progress Note, Physician History of Present Illness: Pt seen and examined at bedside. She is awake and alert. She says she feels well. She denies dysuria. - Current Medication List Current Medications: Active Medications Acetaminophen (Tylenol -) 325 mg PO Q6H PRN PRN Reason: FEVER OR PAIN Last Admin: 06/28/16 06:48 Dose: 325 mg Albuterol/Ipratropium (Duoneb -) 1 amp NEB Q4HPO [facility] Last Admin: 06/28/16 10:07 Dose: Not Given Atorvastatin Calcium (Lipitor -) 10 mg PO HS [facility] Last Admin: 06/27/16 22:46 Dose: 10 mg Bisacodyl (Dulcolax Suppository -) 10 mg RC DAILY PRN PRN Reason: CONSTIPATION Last Admin: 06/24/16 18:20 Dose: 10 mg Docusate Sodium (Colace -) 100 mg PO TID [facility] Last Admin: 06/28/16 06:21 Dose: 100 mg Guaifenesin/Codeine Phosphate (Robitussin Ac -) 10 ml PO Q6H PRN PRN Reason: COUGH Last Admin: 06/28/16 06:35 Dose: 10 ml Levofloxacin (Levaquin 250 Mg Premixed Ivpb -) 50 mls @ 50 mls/hr IVPB DAILY@ 2200 [facility] Last Admin: 06/27/16 22:46 Dose: 50 mls/hr Labetalol HCl (Normodyne -) 200 mg PO BID [facility] Last Admin: 06/28/16 09:09 Dose: 200 mg Methylprednisolone Sodium Succinate (Solu-Medrol -) 40 mg IVPB Q8H-IV [facility] Oxycodone HCl (Roxicodone -) 5 mg PO Q4H PRN Last Admin: 06/28/16 06:47 Dose: 5 mg Polyethylene Glycol (Miralax (For Daily Use) -) 17 gm PO DAILY [facility] Last Admin: 06/28/16 09:09 Dose: 17 gm Rivaroxaban (Xarelto -) 15 mg PO BID [facility] Last Admin: 06/28/16 09:12 Dose: 15 mg Trazodone HCl (Desyrel -) 50 mg PO [facility] Last Admin: 06/27/16 22:46 Dose: 50 mg - Objective Vital Signs: Vital Signs Temperature 98.4 F 06/28/16 09:16 Pulse Rate 64 06/28/16 09:16 Respiratory Rate 20 06/28/16 09:16 Blood Pressure 153/76 06/28/16 09:16 O2 Sat by Pulse Oximetry (%) 95 06/28/16 09:00 Constitutional: Yes: Calm Eyes: Yes: Conjunctiva Clear HENT: Yes: Atraumatic Neck: Yes: Supple Cardiovascular: Yes: S1, S2 Respiratory: Yes: CTA Bilaterally Gastrointestinal: Yes: Soft Genitourinary: Yes: WNL Edema: Yes Neurological: Yes: Oriented Psychiatric: Yes: Oriented Labs: CBC, BMP 06/26/16 06:30 06/26/16 06:30 INR, PTT INR 2.22 (0.82-1.09) H 06/26/16 06:30 Problem List - Problems (1) DVT (deep venous thrombosis) Code(s): I82.409 - ACUTE EMBOLISM AND THOMBOS UNSP DEEP VN UNSP LOWER EXTREMITY Qualifiers: DVT location: lower extremity Affected thrombotic vein of extremity: unspecified vein of extremity Laterality: left Chronicity: acute Qualified Code(s): I82.402 - Acute embolism and thrombosis of unspecified deep veins of left lower extremity (2) DVT prophylaxis Code(s): QHV2457 - (3) Hyperlipemia Code(s): E78.5 - HYPERLIPIDEMIA, UNSPECIFIED (4) Hypertension Code(s): I10 - ESSENTIAL (PRIMARY) HYPERTENSION (5) KONRAD (acute kidney injury) Code(s): N17.9 - ACUTE KIDNEY FAILURE, UNSPECIFIED (6) Pulmonary embolism Code(s): I26.99 - OTHER PULMONARY EMBOLISM WITHOUT ACUTE COR PULMONALE Assessment/Plan Current Medications Generic Name Dose Route Start Last Admin Trade Name Freq PRN Reason Stop Dose Admin Acetaminophen 325 mg 06/25/16 16:12 06/28/16 06:48 Tylenol - PO 325 mg Q6H PRN Administration FEVER OR PAIN Albuterol/Ipratropium 1 amp 06/24/16 10:00 06/28/16 10:07 Duoneb - NEB Not Given Q4HPO FLEX Atorvastatin Calcium 10 mg 06/19/16 22:00 06/27/16 22:46 Lipitor - PO 10 mg HS FLEX Administration Bisacodyl 10 mg 06/20/16 16:11 06/24/16 18:20 Dulcolax Suppository - RC 10 mg DAILY PRN Administration CONSTIPATION Docusate Sodium 100 mg 06/19/16 14:00 06/28/16 06:21 Colace - PO 100 mg TID FLEX Administration Guaifenesin/Codeine Phosphate 10 ml 06/25/16 15:01 06/28/16 06:35 Robitussin Ac - PO 10 ml Q6H PRN Administration COUGH Levofloxacin 50 mls @ 50 mls/hr 06/25/16 22:00 06/27/16 22:46 Levaquin 250 Mg Premixed Ivpb - IVPB 50 mls/hr DAILY@2200 FLEX Administration Labetalol HCl 200 mg 06/24/16 17:20 06/28/16 09:09 Normodyne - PO 200 mg BID FLEX Administration Methylprednisolone Sodium Succinate 40 mg 06/28/16 18:00 Solu-Medrol - IVPB Q8H-IV FLEX Oxycodone HCl 5 mg 06/20/16 15:31 06/28/16 06:47 Roxicodone - PO 5 mg Q4H PRN Administration Polyethylene Glycol 17 gm 06/20/16 15:00 06/28/16 09:09 Miralax (For Daily Use) - PO 17 gm DAILY FLEX Administration Rivaroxaban 15 mg 06/24/16 22:00 06/28/16 09:12 Xarelto - PO 15 mg BID FLEX Administration Trazodone HCl 50 mg 06/19/16 22:00 06/27/16 22:46 Desyrel - PO 50 mg HS FLEX Administration Impression 1. CKD 2. DVT acute 3. hx of PE 4. HTN 5. hyperlipidemia Plan - renal function is stable - can see in office for renal workup - avoid nsaids - pts baseline creatinine is about 1.5 - will need to dose anticoagulants based on the clearance - nsaid use may have contributed to the KONRAD Dr Holloway
--- NOTE | 2016-06-28 15:45 | PN ---
Physical Exam: SUBJECTIVE: Patient seen and examined. starting to feel better. cough is improving but still having thick yellow sputum. denies fever/chills, nausea, vomiting, chest pain, SOB. requests to go to rehab at time of discharge. OBJECTIVE: Vital Signs Period Temp Pulse Resp BP Sys/Ann Pulse Ox Last 24 Hr 98.1 F-98.4 F 64-78 18-20 130-153/57-76 95-95 GENERAL: The patient is awake, alert, and fully oriented, in no acute distress. HEAD: Normal with no signs of trauma. no sinus tenderness. EYES: extraocular movements intact, sclera anicteric, conjunctiva clear. ENT: nares patent, oropharynx clear without exudates/erythema moist mucous membranes. no LAD, no rhinorrhea. no post-nasal drip NECK: Trachea midline, full range of motion, supple. LUNGS: Breath sounds with wheezing throughout and rhonchi. HEART: Regular rate and rhythm, S1, S2 with soft systolic murmur ABDOMEN: Soft, nontender, nondistended, normoactive bowel sounds EXTREMITIES: 1+ pulse in DP left foot with 2+ pitting edema in foot and trace edema up leg. popliteal pulse 2+, warm, well-perfused. right foot with cdi dressing. no edema, able to wiggle toes with 2+ DP pulse. NEUROLOGICAL: Normal speech PSYCH: Normal mood, normal affect. SKIN: Warm, dry, normal turgor, no rashes or lesions noted Active Medications Generic Name Dose Route Start Last Admin Trade Name Freq PRN Reason Stop Dose Admin Acetaminophen 325 mg 06/25/16 16:12 06/28/16 13:55 Tylenol - PO 325 mg Q6H PRN Administration FEVER OR PAIN Albuterol/Ipratropium 1 amp 06/24/16 10:00 06/28/16 14:15 Duoneb - NEB 1 amp Q4HPO FLEX Administration Atorvastatin Calcium 10 mg 06/19/16 22:00 06/27/16 22:46 Lipitor - PO 10 mg HS FLEX Administration Bisacodyl 10 mg 06/20/16 16:11 06/24/16 18:20 Dulcolax Suppository - RC 10 mg DAILY PRN Administration CONSTIPATION Docusate Sodium 100 mg 06/19/16 14:00 06/28/16 13:55 Colace - PO 100 mg TID FLEX Administration Guaifenesin/Codeine Phosphate 10 ml 06/25/16 15:01 06/28/16 06:35 Robitussin Ac - PO 10 ml Q6H PRN Administration COUGH Levofloxacin 50 mls @ 50 mls/hr 06/25/16 22:00 06/27/16 22:46 Levaquin 250 Mg Premixed Ivpb - IVPB 50 mls/hr DAILY@2200 FLEX Administration Labetalol HCl 200 mg 06/24/16 17:20 06/28/16 09:09 Normodyne - PO 200 mg BID FLEX Administration Methylprednisolone Sodium Succinate 40 mg 06/28/16 18:00 Solu-Medrol - IVPB Q8H-IV FLEX Oxycodone HCl 5 mg 06/20/16 15:31 06/28/16 13:55 Roxicodone - PO 5 mg Q4H PRN Administration Polyethylene Glycol 17 gm 06/20/16 15:00 06/28/16 09:09 Miralax (For Daily Use) - PO 17 gm DAILY FLEX Administration Rivaroxaban 15 mg 06/24/16 22:00 06/28/16 09:12 Xarelto - PO 15 mg BID FLEX Administration Trazodone HCl 50 mg 06/19/16 22:00 06/27/16 22:46 Desyrel - PO 50 mg HS FLEX Administration - legionella neg, influ A/B negative, bld cx NGTD, wound cx with serretia marscescens (sensitive to rocephin). - RSV pending ASSESSMENT/PLAN: 85 yr old woman with HTN, HLD, hs of DVT/PE, rearrangement of non-healing wound in right leg at [facility] 06/16, presented with LLE pain, found to have extensive DVT admitted for thrombectomy. - discussed with case resource manager, patient has bed pending at rehab now, however given continued cough and wheezing, will reassess patient's dispo tomorrow. - URI - sx improving - levaquin IVPB, renally doses 250mg IVPB dialy - start 06/23/2015,day 5 - robutussin AC prn for cough, duonebs qid for wheezing, - solumedrol 40mg IVPB q8hr (start 06/25), increased 06/28 from BID due to continued wheezing - Dr. Abreu consulted #anemia- iron saturation and iron levels low - daily feosol 300mg po #UTI with e.coli - levaquin IV #Extensive DVT - via ultrasound in common femoral, femoral and popliteal veins. s/p thrombectomy 06/21/2015 - xarelto 15mg po bid for 21 days - start first dose 06/24 pm - Cr back to baseline; 1.4. will renally dose xarelto as patient is already receiving it and has insurance coverage. #Rearrangement of Right leg wound - Dr. Bustamante changed dressing 06/24 in hospital, wound is healing appropriately, pt can f/u in clinic at d/c - pain control with percocet 5/325 po q4 prn - trazadone 50mg po HS # elevated Cr - improved: 1.4 - d/c diuretics, Diovan 160mg qdaily, triamterene/HCTZ 25/37.5 1c qdaily - encourage oral fluid intake - discussed case with Dr. Rey ([phone]): patient's Cr baseline is mid-1.0's , recent Cr in 05/2016 is 1.5. - nephro consult, Dr. Holloway appreciated - renal/bladder ultrasound completed, wnl #HTN - d/c duiretics and norvasc maintain on following: - monitor as meds have been recently changed - Labetolol 200mg BID - slighlty elevated in morning, to 140-150's systolic, will give labetalol earlier. repeat measures after labetalol is usual patient's range; mid 100's systolic. #constipation - improved - Miralax 17gm po daily - dulcolax suppository 10mg - colace 100mg po #HLD - atorvastatin 10mg po qhs #diet - low sodium/fat controlled. Visit type - Emergency Visit Emergency Visit: No - New Patient This patient is new to me today: No - Critical Care Critical Care patient: No - Discharge Referral Referred to [facility] No
--- NOTE | 2016-06-28 17:07 | PN ---
Teaching Attending Note Name of Resident: Wandy Goff ATTENDING PHYSICIAN STATEMENT I saw and evaluated the patient. I reviewed the resident's note and discussed the case with the resident. I agree with the resident's findings and plan as documented. SUBJECTIVE: Patient is feeling better, no acute distress. OBJECTIVE: Vital Signs Temperature 98.1 F 06/28/16 15:39 Pulse Rate 78 06/28/16 15:39 Respiratory Rate 20 06/28/16 15:39 Blood Pressure 130/57 06/28/16 15:39 O2 Sat by Pulse Oximetry (%) 95 06/28/16 09:00 GENERAL: The patient is awake, alert, and fully oriented, in no acute distress. HEAD: Normal with no signs of trauma. EYES: extraocular movements intact, sclera anicteric, conjunctiva clear. ENT: Ears normal, oropharynx clear without exudates, moist mucous membranes. NECK: Trachea midline, full range of motion, supple. LUNGS: Breath sounds equal, clear to auscultation bilaterally HEART: Regular rate and rhythm, S1, S2 regular ,2/6 ILEANA ABDOMEN: Soft, nontender, nondistended, normoactive bowel sounds. EXTREMITIES: right leg in soft cast, able to move toes, toes warm, no calf tenderness. positive for right dressing . left leg positive for DVT NEUROLOGICAL: Normal speech PSYCH: Normal mood, normal affect. SKIN: Warm, dry, normal turgor, no rashes or lesions noted CBCD WBC 6.3 K/mm3 (4.0-10.0) 06/26/16 06:30 RBC 2.95 M/mm3 (3.60-5.2) L 06/26/16 06:30 Hgb 7.9 GM/dL (10.7-15.3) L 06/26/16 06:30 Hct 23.3 % (32.4-45.2) L 06/26/16 06:30 MCV 78.9 fl (80-96) L 06/26/16 06:30 MCHC 34.1 g/dl (32.0-36.0) 06/26/16 06:30 RDW 15.8 % (11.6-15.6) H 06/26/16 06:30 Plt Count 224 K/MM3 (134-434) 06/26/16 06:30 MPV 7.9 fl (7.5-11.1) 06/26/16 06:30 CMP Sodium 139 mmol/L (136-145) 06/26/16 06:30 Potassium 4.8 mmol/L (3.5-5.1) 06/26/16 06:30 Chloride 104 mmol/L (98-107) 06/26/16 06:30 Carbon Dioxide 25 mmol/L (21-32) 06/26/16 06:30 Anion Gap 10 (8-16) 06/26/16 06:30 BUN 22 mg/dL (7-18) H D 06/26/16 06:30 Creatinine 1.4 mg/dL (0.55-1.02) H 06/26/16 06:30 Creat Clearance w eGFR 28.50 (>60) 06/20/16 06:35 Random Glucose 140 mg/dL (74-106) H D 06/26/16 06:30 Calcium 8.6 mg/dL (8.5-10.1) 06/26/16 06:30 Total Bilirubin 0.5 mg/dL (0.2-1.0) D 06/20/16 06:35 AST 15 U/L (15-37) 06/20/16 06:35 ALT 16 U/L (12-78) 06/20/16 06:35 Alkaline Phosphatase 73 U/L (45-117) 06/20/16 06:35 Total Protein 7.1 g/dl (6.4-8.2) 06/20/16 06:35 Albumin 3.6 g/dl (3.4-5.0) 06/20/16 06:35 CARDIAC ENZYMES Troponin I < 0.02 ng/ml (0.00-0.05) 06/24/16 22:20 Current Medications Generic Name Dose Route Start Last Admin Trade Name Freq PRN Reason Stop Dose Admin Acetaminophen 325 mg 06/25/16 16:12 06/28/16 13:55 Tylenol - PO 325 mg Q6H PRN Administration FEVER OR PAIN Albuterol/Ipratropium 1 amp 06/24/16 10:00 06/28/16 14:15 Duoneb - NEB 1 amp Q4HPO FLEX Administration Atorvastatin Calcium 10 mg 06/19/16 22:00 06/27/16 22:46 Lipitor - PO 10 mg HS FLEX Administration Bisacodyl 10 mg 06/20/16 16:11 06/24/16 18:20 Dulcolax Suppository - RC 10 mg DAILY PRN Administration CONSTIPATION Docusate Sodium 100 mg 06/19/16 14:00 06/28/16 13:55 Colace - PO 100 mg TID FLEX Administration Guaifenesin/Codeine Phosphate 10 ml 06/25/16 15:01 06/28/16 06:35 Robitussin Ac - PO 10 ml Q6H PRN Administration COUGH Levofloxacin 50 mls @ 50 mls/hr 06/25/16 22:00 06/27/16 22:46 Levaquin 250 Mg Premixed Ivpb - IVPB 50 mls/hr DAILY@2200 FLEX Administration Labetalol HCl 200 mg 06/24/16 17:20 06/28/16 09:09 Normodyne - PO 200 mg BID FLEX Administration Methylprednisolone Sodium Succinate 40 mg 06/28/16 18:00 Solu-Medrol - IVPB Q8H-IV FLEX Oxycodone HCl 5 mg 06/20/16 15:31 06/28/16 13:55 Roxicodone - PO 5 mg Q4H PRN Administration Polyethylene Glycol 17 gm 06/20/16 15:00 06/28/16 09:09 Miralax (For Daily Use) - PO 17 gm DAILY FLEX Administration Rivaroxaban 15 mg 06/24/16 22:00 06/28/16 09:12 Xarelto - PO 15 mg BID FLEX Administration Trazodone HCl 50 mg 06/19/16 22:00 06/27/16 22:46 Desyrel - PO 50 mg HS FLEX Administration Medication Instructions Recorded Amlodipine Besylate [Norvasc -] 5 mg PO DAILY 06/19/16 Atorvastatin Ca [Lipitor] 5 mg PO DAILY 06/19/16 Oxycodone HCl/Acetaminophen 1 tab PO Q4H 06/19/16 [Percocet 5-325 mg Tablet] Rivaroxaban [Xarelto -] 20 mg PO ASDIR 06/19/16 Tizanidine HCl [Zanaflex] 2 mg PO TID PRN 06/19/16 Trazodone HCl [Desyrel -] 50 mg PO ASDIR 06/19/16 Triamterene/Hydrochlorothiazid 1 each PO ASDIR 06/19/16 [Triamterene-Hctz 37.5-25 mg Cp] Valsartan [Diovan] 160 mg PO ASDIR 06/19/16 ASSESSMENT AND PLAN: 85 y/o very pleasant lady with h/o HTN, HLP, and 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 # Acute Bronchitis on Levaquin continue , patient is feeling better , continue Steroid IV will switch to po upon discharge. Also on Robitussin with codeine to help for cough. influenza screen negative on 06/23, screen for RSV too # Acute Extensive LLE DVT in common femoral, femoral and popliteal veins. s/p thrombectomy by IR OFF heparin gtt . On Xarelto 15mg po bid since her kidney function is back to normal. will need repeat IR eval in 3 weeks and endovascular US. Percocet for pain control # Anemia : monitor h/h dropped recheck level in am type and screen # Acute renal failure over chronic : base line 1.5 .now 1.4. cont to hold diovan and diuretics , Nephrology on board. # Recent rearrangement of R Leg non healing wound on 06/16. cont cast , follow with Dr. Bustamante as an outpatient # HTN: hold ARB and diuretics as above. discontinue Norvasc and increased labetalol dose . #H/O HLP: cont meds DVT Px: Xarelto
--- NOTE | 2016-06-28 17:09 | PN ---
Progress Note (short form) - Note Progress Note: subjectively imlproved feels much better still wheezing but less Vital Signs Period Temp Pulse Resp BP Sys/Ann Pulse Ox Last 24 Hr 98.1 F-98.4 F 64-78 18-20 130-153/57-76 95-95 cor-rrr lungs scattered wheezes abd- soft,nt ext no edema dressing intact on foot CBC, BMP 06/26/16 06:30 06/26/16 06:30 Microbiology 06/25/16 18:00 Nasopharyngeal Swab Respiratory Virus Panel - Preliminary 06/25/16 10:30 Wound Gram Stain - Final 06/25/16 10:30 Wound Wound Culture - Final Serratia Marcescens 06/25/16 18:00 Nasopharyngeal Swab Influenza Types A,B Antigen (MAGI) - Final 06/25/16 18:00 Nasopharyngeal Swab - Final 06/24/16 22:20 Blood - Peripheral Venous Blood Culture - Preliminary NO GROWTH OBTAINED AFTER 72 HOURS, INCUBATION TO CONTINUE FOR 2 DAYS. 06/24/16 22:20 Blood - Peripheral Venous Blood Culture - Preliminary NO GROWTH OBTAINED AFTER 72 HOURS, INCUBATION TO CONTINUE FOR 2 DAYS. 06/25/16 07:16 Sputum - Expectorated Gram Stain - Final 06/25/16 07:16 Sputum - Expectorated Sputum Culture - Final NORMAL [facility] [place] 06/25/16 06:00 Urine - Urine Clean Catch Urine Culture - Final 06/22/16 23:30 Urine - Urine Clean Catch Urine Culture - Final Escherichia Coli 06/25/16 06:00 Urine For Antigen Detection Legionella Antigen - Final 06/25/16 06:00 Urine For Antigen Detection Streptococcus pneumoniae Antigen (M - Final 06/23/16 11:20 Nasopharyngeal Swab Respiratory Virus Panel - Preliminary 06/23/16 11:20 Nasopharyngeal Swab Influenza Types A,B Antigen (MAGI) - Final 06/23/16 11:20 Nasopharyngeal Swab - Final a/p fevers resolved bronchospasm improving can switch to po levaquin- would complete 7 day course today is day #6 of 7 please call back if needed
[2016-06-28] MEDS: traZODone HCL 50 MG TABLET (FP) PO SCH (21:29)
[2016-06-28] MEDS: LEVOFLOXACIN 250 MG IVPB 50 ML IVPB SCH (21:29)
[2016-06-28] MEDS: ATORVASTATIN CA 10 MG TABLET (FP) PO SCH (21:30)
[2016-06-29] MEDS: ALBUTEROL SO4 2.5/IPRATROPIUM 0.5 INH SOL 3 ML VIAL.NEB. NEB SCH ×4 (02:44→14:30)
[2016-06-29] MEDS: methylPREDNISolone NA SUCC 40 MG/1 ML VIAL IVPB SCH ×2 (03:09→11:06)
[2016-06-29] MEDS: DOCUSATE SODIUM 100 MG CAPSULE (FP) PO SCH ×2 (06:24→13:31)
[2016-06-29] MEDS: LABETALOL HCL 200 MG TABLET (FP) PO SCH (06:25)
[2016-06-29 08:45] LABS: CREATININE 1.1 mg/dL (0.55-1.02)
[2016-06-29 08:47] LABS: CALCIUM 8.9 mg/dL (8.5-10.1)
[2016-06-29] MEDS ORDERED: FERROUS SO4 300 MG/5 ML ORAL SOLN UNIT DOSE CUPS PO SCH (10:00)
[2016-06-29 10:22] LABS: MCH 26.6 pg (25.7-33.7); MCHC 33.8 g/dl (32.0-36.0); MEAN CELL VOLUME 78.7 fl (80-96); MEAN PLT VOLUME 7.9 fl (7.5-11.1); PLATELET COUNT 299 K/MM3 (134-434); RDW 15.5 % (11.6-15.6); WHITE BLOOD COUNT 8.4 K/mm3 (4.0-10.0)
[2016-06-29] MEDS ORDERED: PT OWN MED DRAWER 7, Y5N ONE (10:56)
[2016-06-29] MEDS: RIVAROXABAN 15 MG TABLET PO SCH (11:07)
[2016-06-29] MEDS: POLYETHYLENE GLYCOL 3350 119 GM BTL PO SCH (11:10)
[2016-06-29 11:35] LABS: ALBUMIN 3.3 g/dl (3.4-5.0); BILIRUBIN,TOTAL 0.3 mg/dL (0.2-1.0); CALCIUM 8.7 mg/dL (8.5-10.1); CREATININE 1.2 mg/dL (0.55-1.02); MAGNESIUM 2.4 mg/dL (1.8-2.4); TOT PROT 6.3 g/dl (6.4-8.2)
[2016-06-29 11:36] VITALS: PULSE 62
--- NOTE | 2016-06-29 11:44 | PN ---
Progress Note, Physician History of Present Illness: Pt seen and examined at bedside. She is awake and alert. She denies shortness of breath. She is awake and alert. - Current Medication List Current Medications: Active Medications Acetaminophen (Tylenol -) 325 mg PO Q6H PRN PRN Reason: FEVER OR PAIN Last Admin: 06/28/16 13:55 Dose: 325 mg Albuterol/Ipratropium (Duoneb -) 1 amp NEB Q4HPO [facility] Last Admin: 06/29/16 10:00 Dose: 1 amp Atorvastatin Calcium (Lipitor -) 10 mg PO HS [facility] Last Admin: 06/28/16 21:30 Dose: 10 mg Bisacodyl (Dulcolax Suppository -) 10 mg RC DAILY PRN PRN Reason: CONSTIPATION Last Admin: 06/24/16 18:20 Dose: 10 mg Docusate Sodium (Colace -) 100 mg PO TID [facility] Last Admin: 06/29/16 06:24 Dose: 100 mg Ferrous Sulfate (Feosol) 300 mg PO DAILY [facility] Last Admin: 06/29/16 11:06 Dose: 300 mg Guaifenesin/Codeine Phosphate (Robitussin Ac -) 10 ml PO Q6H PRN PRN Reason: COUGH Last Admin: 06/28/16 23:15 Dose: 10 ml Levofloxacin (Levaquin 250 Mg Premixed Ivpb -) 50 mls @ 50 mls/hr IVPB DAILY@ 2200 [facility] Last Admin: 06/28/16 21:29 Dose: 50 mls/hr Labetalol HCl (Normodyne -) 200 mg PO BID@0700,2200 [facility] Last Admin: 06/29/16 06:25 Dose: 200 mg Methylprednisolone Sodium Succinate (Solu-Medrol -) 40 mg IVPB Q8H-IV [facility] Last Admin: 06/29/16 11:06 Dose: 40 mg Oxycodone HCl (Roxicodone -) 5 mg PO Q4H PRN Last Admin: 06/28/16 13:55 Dose: 5 mg Polyethylene Glycol (Miralax (For Daily Use) -) 17 gm PO DAILY [facility] Last Admin: 06/29/16 11:10 Dose: 17 gm Rivaroxaban (Xarelto -) 15 mg PO BID [facility] Last Admin: 06/29/16 11:07 Dose: 15 mg Trazodone HCl (Desyrel -) 50 mg PO HS FLEX Last Admin: 06/28/16 21:29 Dose: 50 mg - Objective Vital Signs: Vital Signs Temperature 98.6 F 06/29/16 11:00 Pulse Rate 62 06/29/16 11:00 Respiratory Rate 18 06/29/16 11:00 Blood Pressure 143/59 06/29/16 11:00 O2 Sat by Pulse Oximetry (%) 97 06/28/16 21:00 Constitutional: Yes: Calm Eyes: Yes: Conjunctiva Clear HENT: Yes: Atraumatic Cardiovascular: Yes: S1, S2 Respiratory: Yes: CTA Bilaterally Gastrointestinal: Yes: Soft, Abdomen, Obese Genitourinary: Yes: WNL Musculoskeletal: Yes: Other (right leg pain and left calf pain) Edema: Yes Wound/Incision: Yes: Dressing Dry and Intact Neurological: Yes: Oriented Psychiatric: Yes: Oriented Labs: CBC, BMP 06/29/16 10:00 06/29/16 10:20 INR, PTT INR 2.22 (0.82-1.09) H 06/26/16 06:30 Problem List - Problems (1) DVT (deep venous thrombosis) Code(s): I82.409 - ACUTE EMBOLISM AND THOMBOS UNSP DEEP VN UNSP LOWER EXTREMITY Qualifiers: DVT location: lower extremity Affected thrombotic vein of extremity: unspecified vein of extremity Laterality: left Chronicity: acute Qualified Code(s): I82.402 - Acute embolism and thrombosis of unspecified deep veins of left lower extremity (2) DVT prophylaxis Code(s): [id number] - (3) Hyperlipemia Code(s): E78.5 - HYPERLIPIDEMIA, UNSPECIFIED (4) Hypertension Code(s): I10 - ESSENTIAL (PRIMARY) HYPERTENSION (5) KONRAD (acute kidney injury) Code(s): N17.9 - ACUTE KIDNEY FAILURE, UNSPECIFIED (6) Pulmonary embolism Code(s): I26.99 - OTHER PULMONARY EMBOLISM WITHOUT ACUTE COR PULMONALE Assessment/Plan Current Medications Generic Name Dose Route Start Last Admin Trade Name Freq PRN Reason Stop Dose Admin Acetaminophen 325 mg 06/25/16 16:12 06/28/16 13:55 Tylenol - PO 325 mg Q6H PRN Administration FEVER OR PAIN Albuterol/Ipratropium 1 amp 06/24/16 10:00 06/29/16 10:00 Duoneb - NEB 1 amp Q4HPO FLEX Administration Atorvastatin Calcium 10 mg 06/19/16 22:00 06/28/16 21:30 Lipitor - PO 10 mg HS FLEX Administration Bisacodyl 10 mg 06/20/16 16:11 06/24/16 18:20 Dulcolax Suppository - RC 10 mg DAILY PRN Administration CONSTIPATION Docusate Sodium 100 mg 06/19/16 14:00 06/29/16 06:24 Colace - PO 100 mg TID FLEX Administration Ferrous Sulfate 300 mg 06/29/16 10:00 06/29/16 11:06 Feosol PO 300 mg DAILY FLEX Administration Guaifenesin/Codeine Phosphate 10 ml 06/25/16 15:01 06/28/16 23:15 Robitussin Ac - PO 10 ml Q6H PRN Administration COUGH Levofloxacin 50 mls @ 50 mls/hr 06/25/16 22:00 06/28/16 21:29 Levaquin 250 Mg Premixed Ivpb - IVPB 50 mls/hr DAILY@2200 FLEX Administration Labetalol HCl 200 mg 06/28/16 22:00 06/29/16 06:25 Normodyne - PO 200 mg BID@0700,2200 FLEX Administration Methylprednisolone Sodium Succinate 40 mg 06/28/16 18:00 06/29/16 11:06 Solu-Medrol - IVPB 40 mg Q8H-IV FLEX Administration Oxycodone HCl 5 mg 06/20/16 15:31 06/28/16 13:55 Roxicodone - PO 5 mg Q4H PRN Administration Polyethylene Glycol 17 gm 06/20/16 15:00 06/29/16 11:10 Miralax (For Daily Use) - PO 17 gm DAILY FLEX Administration Rivaroxaban 15 mg 06/24/16 22:00 06/29/16 11:07 Xarelto - PO 15 mg BID FLEX Administration Trazodone HCl 50 mg 06/19/16 22:00 06/28/16 21:29 Desyrel - PO 50 mg HS FLEX Administration Impression 1. CKD 2. DVT acute 3. hx of PE 4. HTN 5. hyperlipidemia Plan - reviewed labs, renal function is stable - can see pt in office - cont pt/rehab - volume status is acceptable - will need to dose anticoagulants based on the clearance - nsaid use may have contributed to the KONRAD Dr [place]
[2016-06-29 13:29] LABS: METAMYELOCYTE 1 % (0-2); PLATELET ESTIMATE ADEQUATE (NORMAL)
[2016-06-29] MEDS: ACETAMINOPHEN 325 MG TABLET (FP) PO PRN (13:30)
[2016-06-29] MEDS: oxyCODONE HCL 5 MG TABLET PO PRN (13:31)
--- NOTE | 2016-06-29 14:19 | PN ---
Teaching Attending Note Name of Resident: Wandy Goff ATTENDING PHYSICIAN STATEMENT I saw and evaluated the patient. I reviewed the resident's note and discussed the case with the resident. I agree with the resident's findings and plan as documented. SUBJECTIVE: Patient is feeling better, with no acute distress, no shortness of breath, no nausea or vomiting, ready to go home OBJECTIVE: Vital Signs Temperature 98.6 F 06/29/16 11:00 Pulse Rate 62 06/29/16 11:00 Respiratory Rate 18 06/29/16 11:00 Blood Pressure 143/59 06/29/16 11:00 O2 Sat by Pulse Oximetry (%) 97 06/28/16 21:00 GENERAL: The patient is awake, alert, and fully oriented, in no acute distress. HEAD: Normal with no signs of trauma. EYES: extraocular movements intact, sclera anicteric, conjunctiva clear. ENT: Ears normal, oropharynx clear without exudates, moist mucous membranes. NECK: Trachea midline, full range of motion, supple. LUNGS: Breath sounds equal, No wheezing, CTA Bl HEART: Regular rate and rhythm, S1, S2 regular , 2/6 systolic ejection murmur ABDOMEN: Soft, nontender, nondistended, normoactive bowel sounds. EXTREMITIES: right leg in soft cast, able to move toes, toes warm, no calf tenderness. positive for right dressing . left leg positive for DVT NEUROLOGICAL: Normal speech PSYCH: Normal mood, normal affect. SKIN: Warm, dry, normal turgor, no rashes or lesions notedCBCD WBC 8.4 K/mm3 (4.0-10.0) D 06/29/16 10:00 RBC 3.06 M/mm3 (3.60-5.2) L 06/29/16 10:00 Hgb 8.1 GM/dL (10.7-15.3) L 06/29/16 10:00 Hct 24.0 % (32.4-45.2) L 06/29/16 10:00 MCV 78.7 fl (80-96) L 06/29/16 10:00 MCHC 33.8 g/dl (32.0-36.0) 06/29/16 10:00 RDW 15.5 % (11.6-15.6) 06/29/16 10:00 Plt Count 299 K/MM3 (134-434) D 06/29/16 10:00 MPV 7.9 fl (7.5-11.1) 06/29/16 10:00 CMP Sodium 138 mmol/L (136-145) 06/29/16 10:20 Potassium 4.2 mmol/L (3.5-5.1) 06/29/16 10:20 Chloride 103 mmol/L (98-107) 06/29/16 10:20 Carbon Dioxide 26 mmol/L (21-32) 06/29/16 10:20 Anion Gap 9 (8-16) 06/29/16 10:20 BUN 23 mg/dL (7-18) H 06/29/16 10:20 Creatinine 1.2 mg/dL (0.55-1.02) H 06/29/16 10:20 Creat Clearance w eGFR 42.60 (>60) 06/29/16 10:20 Random Glucose 134 mg/dL (74-106) H 06/29/16 10:20 Calcium 8.7 mg/dL (8.5-10.1) 06/29/16 10:20 Total Bilirubin 0.3 mg/dL (0.2-1.0) D 06/29/16 10:20 AST 12 U/L (15-37) L 06/29/16 10:20 ALT 34 U/L (12-78) D 06/29/16 10:20 Alkaline Phosphatase 75 U/L (45-117) 06/29/16 10:20 Total Protein 6.3 g/dl (6.4-8.2) L 06/29/16 10:20 Albumin 3.3 g/dl (3.4-5.0) L 06/29/16 10:20 CARDIAC ENZYMES Troponin I < 0.02 ng/ml (0.00-0.05) 06/24/16 22:20 Medication Instructions Recorded Amlodipine Besylate [Norvasc -] 5 mg PO DAILY 06/19/16 Atorvastatin Ca [Lipitor] 5 mg PO DAILY 06/19/16 Oxycodone HCl/Acetaminophen 1 tab PO Q4H 06/19/16 [Percocet 5-325 mg Tablet] Rivaroxaban [Xarelto -] 20 mg PO ASDIR 06/19/16 Tizanidine HCl [Zanaflex] 2 mg PO TID PRN 06/19/16 Trazodone HCl [Desyrel -] 50 mg PO ASDIR 06/19/16 Triamterene/Hydrochlorothiazid 1 each PO ASDIR 06/19/16 [Triamterene-Hctz 37.5-25 mg Cp] Valsartan [Diovan] 160 mg PO ASDIR 06/19/16 ASSESSMENT AND PLAN: presdnisone tapered dose 40 x 4, 30mg x3, 20mg x2, 10mg 85 y/o very pleasant lady with h/o HTN, HLP, and 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 # Acute Bronchitis improved , completed Levaquin , will discharge the patient on oral prednisone , being discharged to Rehab. # Acute Extensive LLE DVT in common femoral, femoral and popliteal veins. s/p thrombectomy by IR OFF heparin gtt . On Xarelto now 15mg po bid since her kidney function is back to normal. will need repeat IR eval in 3 weeks and endovascular US. Percocet for pain control # Anemia :stable # Acute renal failure over chronic : base line 1.5 .Improved back to 1.2 now will continue with diovan and Labetolol as per nephrology # Recent rearrangement of R Leg non healing wound on 06/16. cont cast follow with Dr. Bustamante as an outpatient # HTN: continue with Labetolol and Diovan . #H/O HLP: cont meds DVT Px: Xarelto going to rehab
[2016-06-29] MEDS ORDERED: LEVOFLOXACIN 250 MG TABLET (FP) PO ONE (14:28)
--- NOTE | 2016-06-29 14:39 | DS ---
Physical Exam: SUBJECTIVE: Patient seen and examined Feels better, out of bed to chair today. cough significantly improved. Stable for transfer to SNF for rehab. denied fever, chills, chest pain, SOB, nausea, constipation, diarrhea. OBJECTIVE: Vital Signs Period Temp Pulse Resp BP Sys/Ann Pulse Ox Last 24 Hr 98.0 F-98.6 F 57-78 16-20 130-164/57-97 95-97 PHYSICAL EXAM GENERAL: The patient is awake, alert, and fully oriented, in no acute distress. HEAD: Normal with no signs of trauma. no sinus tenderness. EYES: extraocular movements intact, sclera anicteric, conjunctiva clear. ENT: nares patent, oropharynx clear without exudates/erythema moist mucous membranes. no LAD, no rhinorrhea. no post-nasal drip NECK: Trachea midline, full range of motion, supple. LUNGS: Breath sounds with rhonchi, mild wheezing HEART: Regular rate and rhythm, S1, S2 with soft systolic murmur ABDOMEN: Soft, nontender, nondistended, normoactive bowel sounds EXTREMITIES: Left: 1+ pulse in DP left foot without edema in foot and trace edema up leg. popliteal pulse 2+, warm, well-perfused. right foot with cdi dressing. 1+ edema, able to wiggle toes with 2+ DP pulse. NEUROLOGICAL: Normal speech PSYCH: Normal mood, normal affect. SKIN: Warm, dry, normal turgor, no rashes or lesions noted LABS Laboratory Results - last 24 hr 06/29/16 06/29/16 06/29/16 06:20 10:00 10:20 WBC 8.4 D RBC 3.06 L Hgb 8.1 L Hct 24.0 L MCV 78.7 L MCHC 33.8 RDW 15.5 Plt Count 299 D MPV 7.9 Neutrophils % 73.0 D Lymphocytes % 21.0 D Monocytes % 3.0 L Eosinophils % 0.0 D Basophils % 0.0 Band Neutrophils 1.0 Metamyelocytes 1 Myelocytes 1 Differential Comment Manual diff done Platelet Estimate Adequate Sodium 139 138 Potassium 4.1 4.2 Chloride 103 103 Carbon Dioxide 27 26 Anion Gap 9 9 BUN 23 H 23 H Creatinine 1.1 H D 1.2 H Creat Clearance w eGFR 42.60 Random Glucose 113 H 134 H Calcium 8.9 8.7 Magnesium 2.4 Total Bilirubin 0.3 D AST 12 L ALT 34 D Alkaline Phosphatase 75 Total Protein 6.3 L Albumin 3.3 L Microbiology 06/25/16 18:00 Nasopharyngeal Swab Influenza Types A,B Antigen (MAGI) - Final - NEGATIVE 06/25/16 10:30 Wound Wound Culture - Final Serratia Marcescens 06/25/16 07:16 Sputum - Expectorated Sputum Culture - Final NORMAL RESPIRATORY [place] 06/25/16 06:00 Urine For Antigen Detection Legionella Antigen - Final - NEGATIVE 06/25/16 06:00 Urine For Antigen Detection Streptococcus pneumoniae Antigen (M - Final) - NEGATIVE 06/25/16 06:00 Urine - Urine Clean Catch Urine Culture - Final - <10,000 CFU 06/23/16 11:20 Nasopharyngeal Swab Influenza Types A,B Antigen (MAGI) - Final - NEGATIVE 06/22/16 23:30 Urine - Urine Clean Catch Urine Culture - Final Escherichia Coli 06/25/16 18:00 Nasopharyngeal Swab Respiratory Virus Panel - Preliminary - NEGATIVE 06/24/16 22:20 Blood - Peripheral Venous Blood Culture - Preliminary NO GROWTH OBTAINED AFTER 96 HOURS, INCUBATION TO CONTINUE FOR 1 DAYS. 06/24/16 22:20 Blood - Peripheral Venous Blood Culture - Preliminary NO GROWTH OBTAINED AFTER 96 HOURS, INCUBATION TO CONTINUE FOR 1 DAYS. 06/23/16 11:20 Nasopharyngeal Swab Respiratory Virus Panel - Preliminary - NEGATIVE Laboratory Tests 06/23/16 06/24/16 06/25/16 06:35 06:40 06:15 INR PTT (Actin FS) BUN 54 H 38 H D 28 H D Creatinine 1.7 H 1.5 H 1.4 H Iron TIBC Iron Saturation Ferritin RSV Ag Report Status 06/25/16 06/26/16 06/26/16 18:00 06:30 06:30 INR 2.22 H PTT (Actin FS) 41.4 H BUN 22 H D Creatinine 1.4 H Iron TIBC Iron Saturation Ferritin RSV Ag Report Status Negative 06/26/16 06/26/16 06/29/16 06:30 06:30 06:20 INR PTT (Actin FS) BUN 23 H Creatinine 1.1 H D Iron 24 L TIBC 295 Iron Saturation 8 L Ferritin 136.176 RSV Ag Report Status 06/29/16 10:20 INR PTT (Actin FS) BUN 23 H Creatinine 1.2 H Iron TIBC Iron Saturation Ferritin RSV Ag Report Status IMAGING 06/24 chest xray:Shallow inspiration. No evidence of pneumonia, atelectasis. Normal pulmonary vasculature. No pleural effusion or pneumothorax is seen. Bilateral apical pleural thickening. Uncoiled thoracic aorta. The heart is borderline enlarged. Intact visualized osseous structures. Impression No evidence of active pulmonary disease. 06/24 Renal/bladder ultrasound: 1. Mild cortical atrophy, otherwise morphologically normal kidneys and urinary bladder with no evidence of hydronephrosis or acute pathology. 2. Small postvoid residual. 06/22 Echo: The left ventricle is normal in size, left ventricular systolic function is normal. no regional wall motion abnormalities noted. there is mild mitral annular calcification. there is no pericardial effusion. No significant valvular regurgitations are seen. 06/22 chest xray: A single frontal portable projection of the chest at 2:24 PM is submitted. The heart size is within normal limits. The lung sabillon are free of pulmonary infiltrates or pleural effusions. There is tortuosity and calcification of the thoracic aorta and degenerative changes of the thoracic spine. IMPRESSION: No acute disease. 06/19 Duplex scan of left leg: Left lower extremity venous ultrasound. Clinical information given: LLE pain/swelling, evaluate for DVT The exam was performed utilizing compression, grayscale, color flow and doppler sonography. Thrombus is identified within the length of the left common femoral, femoral and popliteal veins. The posterior tibial vein is not well visualized. Impression: Extensive left leg DVT as discussed. 06/19 Chest xray: A single view reveals clear lungs, normal heart, unfolded aorta and degenerative changes. There is evidence of previous right shoulder surgery. An acute process is not seen. 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 successful catheter dissected pharmacomechanical thrombectomy of the left common femoral and femoral veins. Post thrombolysis venogram demonstrating resolution of the acute clot in the left common and femoral veins with marked improvement in blood flow from the popliteal vein through the common femoral vein. 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 Bustamante at [facility] on 06/16/2016 presented to ED with "tense " swelling and pain of the LLE and dry cough. She has been off of Xarelto since Tuesday. Duplex scan revealed: diminished monophasic flow in the left BOW MAKER with peak systolic flow 26 cm/s. Biphasic flow in the left common femoral, superficial femoral, and popliteal arteries. She was placed on a heparin drip until thrombectomy on 06/21. She tolerated the procedure well without complications. Due to prerenal cause of KONRAD, she was encouraged to increase oral fluids, nephrotoxic medications discontinued and given IVF normal saline. Her creatinine function improved. With this improvement Xarelto was re-intiated with renal dosing 15mg BID on 06/23, which is to be continued for 21 days and then 20mg daily for DVT prophylaxis. changed the dressing on her right leg on 06/24 without complications, the wound was healing well. On the third day of hospital admission she developed a fever 101.7, with leucocytosis and productive cough. On exam she had wheezing, congestion and rhonchi. She was treated for upper respiratory infection with rocephin 250 BID and completed a 7-day course. She was also started on duonebs with IV solumedrol 40mg BID for 2 days which was increased to q8h when her wheezing did not improve. With the increase in solumedrol her wheezing improved. Chest xray was negative for infiltrate, blood culture was negative for growth, sputum, RSV antigen and influenza were all negative. Urine culture was positive for E.coli resistant to levofloxacin and ampicillin, she has asymptomatic bacteruria. She was evaluated by Dr. Holloway, histotechnologist, for elevated creatinine. Valsartan and triamterene/HCTZ were discontinued and her blood pressure was controlled with norvasc and labetalol 200mg po bid. However with lower extremity edema, norvasc was discontinued. She was maintained on labetalol 200mg po bid. At the time of discharge her blood pressure was mildly elevated, valsartan was re-initiated. She is to complete a steriod taper over 9 days, from 40mg for 3 days, 30mg for 3 days, 20mg for 2 days and 10 mg for one, then stop. Recommended follow-up with Dr. Granados at [facility] for further evaluation of vascular function in 6-8 weeks, with Dr. Holloway for continued renal assessment, Dr. Bustamante at [facility] for right foot wound. Minutes to complete discharge: 55 Discharge Summary Reason For Visit: DEEP VENOUS THROMBOSIS Current Active Problems KONRAD (acute kidney injury) (Acute) DVT (deep venous thrombosis) (Acute) DVT prophylaxis (Acute) Hyperlipemia (Acute) Hypertension (Acute) Pulmonary embolism (Acute) Condition: Stable - Instructions Diet, Activity, Other Instructions: Continue prednisone daily in the following order: 40mg daily for 3 days 30mg daily for 3 days 20mg daily for 2 days 10mg daily for 1 days. It is important to complete the taper as directed. Take the cough medicine as needed. Continue taking Xarelto 15mg twice daily for a 21 days in total then take 20mg daily. You were started on the xarelto 15mg twice daily on 06/23/2015 continue until July 14 2016 then start 20mg daily. You completed a 7-day course of antibiotics for your respiratory infection. Follow-up with your primary care physician, Dr. Rey upon discharge regarding changes to your blood pressure medications and assess your respiratory infection. Stop triamterene/HCTZ 25/37.5, continue labetalol 200mg in the morning and 200mg in the night and Diovan 160mg once daily for your blood pressure Follow-up with Dr. Bustamante in his office regarding your right leg wound. Follow-up with Dr. Holloway in his office regarding your kidney function. If you develop chest pain, your leg begins to turn red and starts to get bigger , have difficulty breathing or you develop any new symptoms return to the hospital. Referrals: Feliberto Bustamante MD [Primary Care Provider] - Jesus Holloway MD [Staff Physician] - Disposition: [facility] - Home Medications Comprehensive Discharge Medication List: Ambulatory Orders Atorvastatin Ca [Lipitor] 5 mg PO DAILY 06/19/16 Oxycodone HCl/Acetaminophen [Percocet 5-325 mg Tablet] 1 tab PO Q4H 06/19/16 Tizanidine HCl [Zanaflex] 2 mg PO TID PRN 06/19/16 Trazodone HCl [Desyrel -] 50 mg PO ASDIR 06/19/16 Valsartan [Diovan] 160 mg PO ASDIR 06/19/16 Guaifenesin AC [Robitussin AC -] 10 ml PO Q6H PRN #1 bottle MDD 30 06/29/16 Labetalol HCl [Normodyne -] 200 mg PO BID@0700,2200 tablet 06/29/16 Prednisone 10 mg PO ASDIR #26 tablet 06/29/16 Rivaroxaban [Xarelto -] 15 mg PO BID #28 tablet 06/29/16 This patient is new to me today: No Emergency Visit: No Critical Care patient: No - Discharge Referral Referred to [facility] No
[2016-06-29 15:02] VITALS: BP 142/60; TEMP 97.8
== END 2016-06-29 15:30 | DRG 271 ==
LOC: JER 07:21 → UNDOADMIN 10:19 → JERBED 10:19 → J5S 14:13
PROVIDERS: ADMIT Internal Medicine; ATTEND Internal Medicine
PROC: 3E033GC Introduction of Other Therapeutic Substance into Peripheral Vein, Percutaneous Approach (ICD-10-PCS; 2016-06-19)
PROC: 06CN3ZZ Extirpation of Matter from Left Femoral Vein, Percutaneous Approach (ICD-10-PCS; principal; 2016-06-21)
PROC: 06CY3ZZ Extirpation of Matter from Lower Vein, Percutaneous Approach (ICD-10-PCS; 2016-06-21)
DX: I82.412 Acute embolism and thrombosis of left femoral vein (principal); N17.9 Acute kidney failure, unspecified; N39.0 Urinary tract infection, site not specified; I82.432 Acute embolism and thrombosis of left popliteal vein; Z86.711 Personal history of pulmonary embolism; Z79.01 Long term (current) use of anticoagulants; K59.00 Constipation, unspecified; Z98.890 Other specified postprocedural states; D72.829 Elevated white blood cell count, unspecified; D64.9 Anemia, unspecified; J06.9 Acute upper respiratory infection, unspecified; B96.20 Unspecified Escherichia coli [E. coli] as the cause of diseases classified elsewhere
CPT/HCPCS: 36415; 37187; 71010-TC; 76775-TC; 76856-TC; 80048; 80053; 81003; 81015; 82570; 82728; 83540; 83550; 83735; 83880; 84484; 84540; 85025; 85027; 85044; 85610; 85730; 87040; 87070; 87086; 87186; 87205; 87254; 87420; 87804; 87899; 93005; 93010; 93306-TC; 93926-TC; 93971-TC; 94640; 97116-GP; 97161-GP; 99282-25; A4358; C1757; C1769; C1887; C1894; J1644

== ENCOUNTER 2016-10-18 15:30 | Emergency (ER) | payer OTHER ==
[2016-10-18 15:51] VITALS: TEMP 98.6; BMI 24.6
[2016-10-18] MEDS ORDERED: OXYCODONE/APAP 5/325MG COMBO TABLET PO ONE (17:32)
--- NOTE | 2016-10-18 17:32 | PDOC ---
[id number] 4d No Limitations - History of Present Illness Initial Comments: 10/18/16 18:35 The patient is a 86 year old with a significant past medical history of thrombophlebitis, multiple PE, who presents to the emergency department today for further evaluation of right foot pain for one week. The patient states that she has been attending wound care for a wound on her right foot but today she was sent to the ED by her hyperbolic doctor for possible infection evaluation. She reports associated difficulty sleeping, right foot edema, She states that she is in excruciating pain and reports taking aleve with no relief of pain. She notes yesterday she had a mild fever Tmax 100.3. The patient denies nausea, vomiting, and diarrhea. The patient denies chest pain, cough, and shortness of breath. PCP: Dr. Raheem Rey [phone] PAST SURGICAL HISTORY: No significant history reported SOCIAL HISTORY: None reported MEDICATIONS: Reviewed ALLERGIES: As per nursing notes <Jamie Huerta - Last Filed: 10/18/16 18:54> <Eladia Araujo - Last Filed: 10/18/16 20:09> - General Chief Complaint: Pain, Acute Stated Complaint: PAIN Time Seen by Provider: 10/18/16 16:24 Past History <Jamie Huerta - Last Filed: 10/18/16 18:54> - Past Medical History HTN: Yes Hypercholesterolemia: Yes Other medical history: thromboplebitis - Surgical History Abdominal Surgery: Yes (c section, partial hysterectomy, tubual ligation) Appendectomy: Yes - Immunization History Immunization Up to Date: Yes - Psycho/Social/Smoking Cessation Hx Suicidal Ideation: No Smoking History: Never smoked Hx Alcohol Use: No Drug/Substance Use Hx: No Substance Use Type: Alcohol Hx Substance Use Treatment: No <Eladia Araujo - Last Filed: 10/18/16 20:09> - Past Medical History Allergies/Adverse Reactions: Allergies Allergy/AdvReac Type Severity Reaction Status Date / Time aspirin Allergy Verified 10/18/16 15:47 azithromycin [From Zithromax] Allergy Verified 10/18/16 15:47 erythromycin base Allergy Verified 10/18/16 15:47 iodine Allergy Verified 10/18/16 15:47 Penicillins Allergy Verified 10/18/16 15:47 Sulfa (Sulfonamide Allergy Verified 10/18/16 15:47 Antibiotics) tetracycline Allergy Verified 10/18/16 15:47 Home Medications: Ambulatory Orders Atorvastatin Ca [Lipitor] 5 mg PO DAILY 06/19/16 Oxycodone HCl/Acetaminophen [Percocet 5-325 mg Tablet] 1 tab PO Q4H 06/19/16 Tizanidine HCl [Zanaflex] 2 mg PO TID PRN 06/19/16 Trazodone HCl [Desyrel -] 50 mg PO ASDIR 06/19/16 Valsartan [Diovan] 160 mg PO ASDIR 06/19/16 Guaifenesin AC [Robitussin AC -] 10 ml PO Q6H PRN #1 bottle MDD 30 06/29/16 Labetalol HCl [Normodyne -] 200 mg PO BID@0700,2200 tablet 06/29/16 Prednisone 10 mg PO ASDIR #26 tablet 06/29/16 Rivaroxaban [Xarelto -] 15 mg PO BID #28 tablet 06/29/16 Collagenase Clostridium Hist. [Santyl] 1 applic TP DAILY #90 oint...g. 09/01/16 Oxycodone HCl/Acetaminophen [Percocet 5-325 mg Tablet] 1 tab PO Q6H PRN #6 tablet MDD 4 10/18/16 Oxycodone HCl/Acetaminophen [Percocet 5-325 mg Tablet] 1 tab PO Q6H PRN #6 tablet MDD 4 10/18/16 Review of Systems - Review of Systems Able to Perform ROS?: Yes Comments:: 10/18/16 18:35 CONSTITUTIONAL: Reports: Fever, difficulty sleeping Absent: chills, diaphoresis, generalized weakness, malaise, loss of appetite HEENT: Absent: rhinorrhea, nasal congestion, throat pain, throat swelling, difficulty swallowing, mouth swelling, ear pain, eye pain, visual Changes CARDIOVASCULAR: Absent: chest pain, syncope, palpitations, irregular heart rate, lightheadedness , peripheral edema RESPIRATORY: Absent: cough, shortness of breath, dyspnea with exertion, orthopnea, wheezing, stridor, hemoptysis GASTROINTESTINAL: Absent: abdominal pain, abdominal distension, nausea, vomiting, diarrhea, constipation, melena, hematochezia GENITOURINARY: Absent: dysuria, frequency, urgency, hesitancy, hematuria, flank pain, genital pain MUSCULOSKELETAL: Present: Right foot edema, and pain. SKIN: Absent: rash, itching, pallor HEMATOLOGIC/IMMUNOLOGIC: Absent: easy bleeding, easy bruising, lymphadenopathy, frequent infections ENDOCRINE: Absent: unexplained weight gain, unexplained weight loss, heat intolerance, cold intolerance NEUROLOGIC: Absent: headache, focal weakness or paresthesias, dizziness, seizure, mental status changes, bladder or bowel incontinence PSYCHIATRIC: Absent: anxiety, depression, suicidal or homicidal ideation, hallucinations. <Jamie Huerta - Last Filed: 10/18/16 18:54> *Physical Exam - Vital Signs Last Vital Signs Temp Pulse Resp BP Pulse Ox 98.6 F 84 20 144/60 95 10/18/16 15:47 10/18/16 15:47 10/18/16 15:47 10/18/16 15:47 10/18/16 15:47 - Physical Exam Comments: 10/18/16 18:35 GENERAL: Well developed, well nourished. Awake and alert. No acute distress. HEENT: Normocephalic, atraumatic. PERRLA, EOMI. No conjunctival pallor. Sclera are non- icteric. Moist mucous membranes. Oropharynx is clear. NECK: Supple. Full ROM. No JVD. Carotid pulses 2+ and symmetric, without bruits. No thyromegaly. No lymphadenopathy. CARDIOVASCULAR: Regular rate and rhythm. No murmurs, rubs, or gallops. Distal pulses are 2+ and symmetric. PULMONARY: No evidence of respiratory distress. Lungs clear to auscultation bilaterally. No wheezing, rales or rhonchi. ABDOMINAL: Soft. Non-tender. Non-distended. No rebound or guarding. No organomegaly. Normoactive bowel sounds. MUSCULOSKELETAL No bony deformities. No CVA tenderness. EXTREMITIES: (+) No cyanosis. No clubbing. Right foot edema, no signs of cellulitis. No calf tenderness. SKIN: Warm and dry. Normal capillary refill. No rashes. No jaundice. NEUROLOGICAL: Alert, awake, appropriate. Cranial nerves 2-12 intact. No deficits to light touch and temperature in face, upper extremities and lower extremities. No motor deficits in the in face, upper extremities and lower extremities. Normoreflexic in the upper and lower extremities. Normal speech. Toes are down-going bilaterally. PSYCHIATRIC: Cooperative. Good eye contact. Appropriate mood and affect. <Jamie Huerta - Last Filed: 10/18/16 18:54> - Vital Signs Last Vital Signs Temp Pulse Resp BP Pulse Ox 98.6 F 84 20 144/60 95 10/18/16 15:47 10/18/16 15:47 10/18/16 15:47 10/18/16 15:47 10/18/16 15:47 <Eladia Araujo - Last Filed: 10/18/16 20:09> ED Treatment Course - LABORATORY CBC & Chemistry Diagram: 10/18/16 16:00 10/18/16 16:00 - ADDITIONAL ORDERS Additional order review: 10/18/16 16:00 RBC 3.51 L MCV 83.0 MCHC 32.6 RDW 16.2 H MPV 7.4 L Neutrophils % 64.4 Lymphocytes % 22.7 Monocytes % 7.1 D Eosinophils % 4.9 H D Basophils % 0.9 D - Medications Given in the ED: ED Medications Discontinued Medications Generic Name Dose Route Start Last Admin Trade Name Tajq PRN Reason Stop Dose Admin Acetaminophen 650 mg 10/18/16 17:33 10/18/16 17:59 Tylenol - PO 10/18/16 17:34 650 mg ONCE ONE Administration Oxycodone/Acetaminophen 1 combo 10/18/16 17:32 10/18/16 17:59 Percocet 5/325 - PO 10/18/16 17:33 1 combo ONCE ONE Administration <Jamie Huerta - Last Filed: 10/18/16 18:54> - LABORATORY CBC & Chemistry Diagram: 10/18/16 16:00 10/18/16 16:00 <Eladia Araujo - Last Filed: 10/18/16 20:09> Medical Decision Making - Medical Decision Making 10/18/16 18:54 Chest X-ray was ordered after initial evaluation but patient refused. <Jamie Huerta - Last Filed: 10/18/16 18:54> - Medical Decision Making 10/18/16 18:40 86 yo female with long standing s nonhealing rt foot wound on VAC and she is receiving hyperbarics p/w rt foot pain -here she is afebrile she refuses xray of her foot cbc reviewed, anemia,normal wbc ct -on exam theere is no red streaking pt states she only wants pain meds pt has h/o DVT and is on Xeralto 10/18/16 19:01 pt want to leave now chemistry showed chronic renal insuffiency w cr=1.5 plan discharge to be seen by PCP this week <Eladia Araujo - Last Filed: 10/18/16 20:09> *DC/Admit/Observation/Transfer - Attestations Scribe Attestion: Documentation prepared by Jamie Huerta, acting as medical laboratory technical officer for Eladia Araujo MD. <Jamie Huerta - Last Filed: 10/18/16 18:54> <Eladia Araujo - Last Filed: 10/18/16 20:09> Diagnosis at time of Disposition: Disruption of external operation (surgical) wound, not elsewhere classified, initial encounter, Chronic wound of extremity - Discharge Dispostion Disposition: HOME Condition at time of disposition: Stable - Referrals Referrals: Raheem Rey [Primary Care Provider] - - Patient Instructions Printed Discharge Instructions: DI with Wound Drains, DI for Debridement of a Wound, Infection, or Burn Additional Instructions: -keep your appointment with your explosive ordnance specialist this week -return immediately for any shortness of breath,temperatures of 100.5 or above or worsening symptoms
[2016-10-18] MEDS ORDERED: ACETAMINOPHEN 325 MG TABLET (FP) PO ONE (17:33)
[2016-10-18] MEDS ORDERED: ACETAMINOPHEN 325 MG TABLET (FP) ONE (17:42)
[2016-10-18] MEDS ORDERED: OXYCODONE/APAP 5/325MG COMBO TABLET ONE (17:43)
[2016-10-18 18:04] LABS: BASOPHIL 0.9 % (0-2.0); EOSINOPHIL 4.9 % (0-4.5); MCH 27.1 pg (25.7-33.7); MCHC 32.6 g/dl (32.0-36.0); MEAN PLT VOLUME 7.4 fl (7.5-11.1); NEUTROPHILS 64.4 % (42.8-82.8); PLATELET COUNT 292 K/MM3 (134-434); RDW 16.2 % (11.6-15.6); WHITE BLOOD COUNT 8.2 K/mm3 (4.0-10.0)
[2016-10-18 18:27] LABS: ALBUMIN 3.9 g/dl (3.4-5.0); BILIRUBIN,TOTAL 0.2 mg/dL (0.2-1.0); CALCIUM 9.1 mg/dL (8.5-10.1); COCKROFT - GAULT 30.651; CREATININE 1.5 mg/dL (0.55-1.02); TOT PROT 6.9 g/dl (6.4-8.2)
[2016-10-18 20:06] VITALS: BP 138/82; PULSE 74
== END 2016-10-18 19:52 | disposition home or self-care (01) ==
LOC: JER 15:30
DX: T81.89XA Other complications of procedures, not elsewhere classified, initial encounter (principal); I10 Essential (primary) hypertension; E78.00 Pure hypercholesterolemia, unspecified; Z86.711 Personal history of pulmonary embolism; Z86.72 Personal history of thrombophlebitis; Z79.01 Long term (current) use of anticoagulants
CPT/HCPCS: 36415; 80053; 85025; 99282-25

== ENCOUNTER 2016-11-26 14:41 | Day surgery (SDC) | payer OTHER ==
[~2016-11-26 14:41] MED LIST: PICC LINE 8 ML FLUSH PROTOCOL IVPUSH PRN
[2016-11-26] MEDS ORDERED: cefTRIAXone 2 GM/100 ML BAG (PRE-DOCKED) IVPB ONE (15:00)
[2016-11-26 15:21] VITALS: TEMP 98.1
[2016-11-26 16:08] VITALS: BP 156/64; PULSE 81
== END 2016-11-26 16:07 | disposition home or self-care (01) ==
LOC: JINFUSION 14:41
PROVIDERS: ATTEND Internal Medicine
PROC: 3E04329 Introduction of Other Anti-infective into Central Vein, Percutaneous Approach (ICD-10-PCS; principal; 2016-11-26)
PROC: 02H633Z Insertion of Infusion Device into Right Atrium, Percutaneous Approach (ICD-10-PCS; 2016-11-26)
PROC: B214YZZ Fluoroscopy of Right Heart using Other Contrast (ICD-10-PCS; 2016-11-26)
DX: M86.9 Osteomyelitis, unspecified (principal)
CPT/HCPCS: 36569; 77001-TC; 96365; C1751

== ENCOUNTER 2016-11-27 10:25 | Day surgery (SDC) | payer OTHER ==
[2016-11-27] MEDS ORDERED: cefTRIAXone 2 GM/100 ML BAG (PRE-DOCKED) IVPB SCH (10:45)
[2016-11-27 11:05] VITALS: BP 141/74; PULSE 81; TEMP 99
== END 2016-11-27 13:00 | disposition home or self-care (01) ==
LOC: JINFUSION 10:25 → J7W 10:26 → JINFUSION 13:00
PROVIDERS: ATTEND Internal Medicine
DX: M86.9 Osteomyelitis, unspecified (principal)
CPT/HCPCS: 96365

== ENCOUNTER 2016-11-28 10:56 | Day surgery (SDC) | payer OTHER ==
[2016-11-28] MEDS ORDERED: cefTRIAXone 2 GM/100 ML BAG (PRE-DOCKED) IVPB SCH (11:15)
[2016-11-28 11:39] VITALS: BMI 28.6
[2016-11-28 12:35] VITALS: BP 148/66; PULSE 75; TEMP 98.3
== END 2016-11-28 14:10 | disposition home or self-care (01) ==
LOC: JINFUSION 10:56 → J7W 10:58 → JINFUSION 14:10
PROVIDERS: ATTEND Internal Medicine
DX: M86.9 Osteomyelitis, unspecified (principal)
CPT/HCPCS: 96365

== ENCOUNTER 2016-11-29 12:38 | Day surgery (SDC) | payer OTHER ==
[2016-11-29 13:30] LABS: MCH 27.2 pg (25.7-33.7); MCHC 33.2 g/dl (32.0-36.0); MEAN CELL VOLUME 82.1 fl (80-96); MEAN PLT VOLUME 7.5 fl (7.5-11.1); PLATELET COUNT 267 K/MM3 (134-434); WHITE BLOOD COUNT 7.3 K/mm3 (4.0-10.0)
[2016-11-29 13:38] LABS: ANION GAP 7 (8-16); C-REACTIVE PROTEIN 0.6 MG/DL (0.00-0.3); CALCIUM 9.7 mg/dL (8.5-10.1); CO2 32 mmol/L (21-32); CREATININE 1.2 mg/dL (0.55-1.02); GLUCOSE,RANDOM 107 mg/dL (74-106)
[2016-11-29 13:49] VITALS: TEMP 97.8
[2016-11-29 14:23] VITALS: BP 155/69; PULSE 79
[2016-11-29 17:06] LABS: ERYTHROCYTE SEDIMENTATION RATE 35 mm/hr (0-30)
== END 2016-11-29 14:23 | disposition home or self-care (01) ==
LOC: JINFUSION 12:38
PROVIDERS: ATTEND Internal Medicine
DX: M86.9 Osteomyelitis, unspecified (principal)
CPT/HCPCS: 36415; 80048; 85027; 85651; 86140; 96365

== ENCOUNTER 2016-11-30 12:49 | Day surgery (SDC) | payer OTHER ==
[2016-11-30 14:45] VITALS: BP 152/77; PULSE 79; TEMP 98.1
== END 2016-11-30 14:47 | disposition home or self-care (01) ==
LOC: JINFUSION 12:49
PROVIDERS: ATTEND Internal Medicine
DX: M86.9 Osteomyelitis, unspecified (principal)
CPT/HCPCS: 96365

== ENCOUNTER 2016-12-01 11:51 | Day surgery (SDC) | payer OTHER ==
[2016-12-01 14:01] VITALS: BP 125/70; PULSE 80; TEMP 97.8
--- NOTE | 2016-12-01 14:06 | PN ---
Past Medical History Chief Complaint: I have a wound on my Right foot History of Present Illness: Follow up eval of wound on my right foot, has PICC line and VNS. Has no ohtrer complaints today History Provided By: Patient Limitations to Obtaining History: Yes: No Limitations - Past Medical History Vital Signs: Last Vital Signs Temp Pulse Resp BP Pulse Ox 97.8 F 80 20 125/70 12/01/16 14:00 12/01/16 14:00 12/01/16 14:00 12/01/16 14:00 PMH,PSH,Fam Hx, Meds,Allergies,Previous Tx: Reviewed in Nursing Documentation and no changes since last visit. Review of Systems Constitutional: reports: No Symptoms Eyes: reports: No Symptoms Cardiovascular: reports: No Symptoms Respiratory: reports: No Symptoms Musculoskeletal: reports: No Symptoms Integumentary: reports: Wound (Full thickness wound right foot with nio clcinicla signs of infection, has contracted since lasy visit) Neurological: reports: No Symptoms Endocrine: reports: No Symptoms Hematology/Lymphatic: reports: No Symptoms Psychiatric: reports: No Symptoms - Appearance General Appearance: Well groomed, No acute distress, Malnourished Assistive Devices: Cane - Vascular Lower extremity Pulses: 2+ Right Dorsalis Pedis, 2+ Right Posterior Tibial, 2+ Right Popliteal, 2+ Right Femoral, 2+ Left Doralis Pedis, 2+ Left Posterior Tibial, 2+ Left Popliteal, 2+ Left Femoral Varicosities: No Skin Temperature: WNL CFT: Instantaneous Amputations: No - Wound Assessment Wound #1 Assessment: Right (Lateral aspect), Stage III, Pressure Drainage: None Drainage amount: None Odor: No Wound length (cm) [Pre-debridement]: 4 Wound width(cm) [Pre-debridement]: 1 Wound depth (cm) [Pre-debridement]: 0.4 Wound length (cm) [Post debridement]: 5 Wound width (cm) [Post debridement]: 1.5 Wound depth (cm) [Post debridement]: 0.8 Sinus tract (o'clock): None Undermining (o'clock): None Wound bed: Slough Plan of Care: A history was completed , an examination was performed, and the decision was made to perform an excisional debridement using a scalpel. The areas for debridement were prepped and cleansed. Using a #10 blade, I excisionally debrided the damaged/ Devitalized/Necrotic tissue down to and including Sub Cutaneous tissue/muscle and upon completion was covered with a damp saline moistened gauze. Topical Lidocaine was used. Some bleeding occurred and pressure was applied. The ulcer was dressed with Puracol Ag. The patient tolerated the procedures well. Goal of Care ___X__ To Heal To Maintain (wound healing is slow or stalled but stable, little / no deterioration) To Monitor / Manage ( wound healing not achievable due to untreatable underlying condition e.g. cancer, un-reversible severe peripheral vascular disease. Patient Counseled on: Diagnosis and Tx Plan, Diet/Nutrition Instructions: Instructions were provided to the Patient, and the patient is to return in 14 days. Continue VNS, Current wound care Tx plan, IV Abx as per iNFXS Dz Patient demonstrated verbal understanding of all that was said today and they agreed to alert me on effectiveness. Problem List - Problems (1) Disruption of external operation (surgical) wound, not elsewhere classified , initial encounter Code(s): T81.31XA - DISRUPTION OF EXTERNAL OPERATION (SURGICAL) WOUND, NEC, INIT (2) Hyperlipemia Code(s): E78.5 - HYPERLIPIDEMIA, UNSPECIFIED (3) Hypertension Code(s): I10 - ESSENTIAL (PRIMARY) HYPERTENSION
[2016-12-02] MEDS ORDERED: cefTRIAXone 2 GM/100 ML BAG (PRE-DOCKED) IVPB SCH (12:30)
== END 2016-12-01 13:11 | disposition home or self-care (01) ==
LOC: JINFUSION 11:51
PROVIDERS: ATTEND Podiatrist Foot & Ankle Surgery
DX: M86.9 Osteomyelitis, unspecified (principal)
CPT/HCPCS: 11042; 96365

== ENCOUNTER 2016-12-02 12:43 | Day surgery (SDC) | payer OTHER ==
[2016-12-02 13:12] VITALS: BP 142/71; PULSE 90; TEMP 98.2
== END 2016-12-02 13:44 | disposition home or self-care (01) ==
LOC: JINFUSION 12:43
PROVIDERS: ATTEND Internal Medicine
DX: M86.9 Osteomyelitis, unspecified (principal)
CPT/HCPCS: 96365

== ENCOUNTER 2016-12-04 10:05 | Day surgery (SDC) | payer OTHER ==
[2016-12-04] MEDS ORDERED: cefTRIAXone 2 GM/100 ML BAG (PRE-DOCKED) IVPB ONE (11:30)
[2016-12-04 15:07] VITALS: BP 156/67; PULSE 94
[2016-12-04 15:10] VITALS: TEMP 98.6
== END 2016-12-04 12:16 | disposition home or self-care (01) ==
LOC: JINFUSION 10:05 → J7W 10:06 → JINFUSION 12:16
PROVIDERS: ATTEND Internal Medicine
DX: M86.9 Osteomyelitis, unspecified (principal)
CPT/HCPCS: 96365

== ENCOUNTER 2016-12-05 10:06 | Day surgery (SDC) | payer OTHER ==
[2016-12-05] MEDS ORDERED: cefTRIAXone 2 GM/100 ML BAG (PRE-DOCKED) IVPB ONE (11:00)
[2016-12-05 11:55] VITALS: BP 133/65; PULSE 70; TEMP 98.2
== END 2016-12-05 13:45 | disposition home or self-care (01) ==
LOC: JINFUSION 10:06 → J7W 10:07 → JINFUSION 13:45
PROVIDERS: ATTEND Internal Medicine
DX: M86.9 Osteomyelitis, unspecified (principal)
CPT/HCPCS: 96365

== ENCOUNTER 2016-12-06 11:21 | Day surgery (SDC) | payer OTHER ==
[2016-12-06 11:43] LABS: MCH 27.5 pg (25.7-33.7); MCHC 33.5 g/dl (32.0-36.0); MEAN PLT VOLUME 7.6 fl (7.5-11.1); PLATELET COUNT 295 K/MM3 (134-434); RDW 16.8 % (11.6-15.6); WHITE BLOOD COUNT 7.1 K/mm3 (4.0-10.0)
[2016-12-06 12:03] LABS: ANION GAP 10 (8-16); C-REACTIVE PROTEIN < 0.3 MG/DL (0.00-0.3); CO2 28 mmol/L (21-32); CREATININE 1.2 mg/dL (0.55-1.02); GLUCOSE,RANDOM 98 mg/dL (74-106)
[2016-12-06 12:54] VITALS: BP 168/73; PULSE 76; TEMP 98
[2016-12-06 13:47] LABS: ERYTHROCYTE SEDIMENTATION RATE 33 mm/hr (0-30)
== END 2016-12-06 13:00 | disposition home or self-care (01) ==
LOC: JINFUSION 11:21
PROVIDERS: ATTEND Internal Medicine
DX: M86.9 Osteomyelitis, unspecified (principal)
CPT/HCPCS: 36415; 80048; 85027; 85651; 86140; 96365

== ENCOUNTER 2016-12-07 11:25 | Day surgery (SDC) | payer OTHER ==
[2016-12-07] MEDS ORDERED: cefTRIAXone 2 GM/100 ML BAG (PRE-DOCKED) IVPB ONE (13:00)
[2016-12-07 13:01] VITALS: BP 155/72; PULSE 75; TEMP 97.9
== END 2016-12-07 13:30 | disposition home or self-care (01) ==
LOC: JINFUSION 11:25 → J7W 11:26 → JINFUSION 13:30
PROVIDERS: ATTEND Internal Medicine
DX: M86.9 Osteomyelitis, unspecified (principal)
CPT/HCPCS: 96365

== ENCOUNTER 2016-12-08 11:47 | Day surgery (SDC) | payer OTHER ==
[2016-12-08 12:14] VITALS: TEMP 98.4
[2016-12-08 13:01] VITALS: BP 135/50; PULSE 87
== END 2016-12-08 13:01 | disposition home or self-care (01) ==
LOC: JINFUSION 11:47
PROVIDERS: ATTEND Internal Medicine
DX: M86.9 Osteomyelitis, unspecified (principal)
CPT/HCPCS: 96365

== ENCOUNTER 2016-12-09 12:07 | Day surgery (SDC) | payer OTHER ==
[2016-12-09] MEDS ORDERED: cefTRIAXone 2 GM/100 ML BAG (PRE-DOCKED) IVPB ONE (12:22)
[2016-12-09 12:41] VITALS: BP 150/61; PULSE 85; TEMP 98.4
== END 2016-12-09 13:24 | disposition home or self-care (01) ==
LOC: JINFUSION 12:07
PROVIDERS: ATTEND Internal Medicine
DX: M86.9 Osteomyelitis, unspecified (principal)
CPT/HCPCS: 96365

== ENCOUNTER 2016-12-10 11:31 | Day surgery (SDC) | payer OTHER ==
[2016-12-10] MEDS ORDERED: cefTRIAXone 2 GM/100 ML BAG (PRE-DOCKED) IVPB ONE (12:00)
[2016-12-10 12:55] VITALS: TEMP 98.7
[2016-12-10 13:01] VITALS: BP 138/53; PULSE 87
== END 2016-12-10 12:55 | disposition home or self-care (01) ==
LOC: JINFUSION 11:31
PROVIDERS: ATTEND Internal Medicine
DX: M86.9 Osteomyelitis, unspecified (principal)
CPT/HCPCS: 96365

== ENCOUNTER 2016-12-11 11:22 | Day surgery (SDC) | payer OTHER ==
[2016-12-11] MEDS ORDERED: cefTRIAXone 2 GM/100 ML BAG (PRE-DOCKED) IVPB ONE (12:00)
[2016-12-11 17:26] VITALS: BP 142/76; PULSE 78; TEMP 98.6
== END 2016-12-11 13:42 | disposition home or self-care (01) ==
LOC: JINFUSION 11:22 → J7W 11:23 → JINFUSION 13:42
PROVIDERS: ATTEND Internal Medicine
DX: M86.9 Osteomyelitis, unspecified (principal)
CPT/HCPCS: 96365

== ENCOUNTER 2016-12-12 10:51 | Day surgery (SDC) | payer OTHER ==
[2016-12-12] MEDS ORDERED: cefTRIAXone 2 GM/100 ML BAG (PRE-DOCKED) IVPB SCH (11:15)
[2016-12-12 13:43] VITALS: BP 158/78; PULSE 72; TEMP 98.2
== END 2016-12-12 14:14 | disposition home or self-care (01) ==
LOC: JINFUSION 10:51 → J7W 10:52 → JINFUSION 14:14
PROVIDERS: ATTEND Internal Medicine
DX: M86.9 Osteomyelitis, unspecified (principal)
CPT/HCPCS: 96365

== ENCOUNTER 2016-12-13 11:06 | Day surgery (SDC) | payer OTHER ==
[2016-12-13 11:39] LABS: MCH 27.3 pg (25.7-33.7); MCHC 33.3 g/dl (32.0-36.0); MEAN CELL VOLUME 82.1 fl (80-96); MEAN PLT VOLUME 7.5 fl (7.5-11.1); PLATELET COUNT 273 K/MM3 (134-434); RDW 16.4 % (11.6-15.6); WHITE BLOOD COUNT 7.1 K/mm3 (4.0-10.0)
[2016-12-13 12:11] LABS: ANION GAP 6 (8-16); C-REACTIVE PROTEIN < 0.3 MG/DL (0.00-0.3); CALCIUM 9.9 mg/dL (8.5-10.1); CO2 31 mmol/L (21-32); CREATININE 1.1 mg/dL (0.55-1.02); GLUCOSE,RANDOM 89 mg/dL (74-106)
[2016-12-13 12:45] LABS: ERYTHROCYTE SEDIMENTATION RATE 34 mm/hr (0-30)
[2016-12-13 15:24] VITALS: BP 141/73; PULSE 72
== END 2016-12-13 12:25 | disposition home or self-care (01) ==
LOC: JINFUSION 11:06
PROVIDERS: ATTEND Internal Medicine
DX: M86.9 Osteomyelitis, unspecified (principal)
CPT/HCPCS: 36415; 80048; 85027; 85651; 86140; 96365

== ENCOUNTER 2016-12-14 11:06 | Day surgery (SDC) | payer OTHER ==
[2016-12-14 11:44] VITALS: BP 148/87; PULSE 94; TEMP 98.4
[2016-12-14] MEDS ORDERED: cefTRIAXone 2 GM/100 ML BAG (PRE-DOCKED) IVPB ONE (12:00)
== END 2016-12-14 12:19 | disposition home or self-care (01) ==
LOC: JINFUSION 11:06
PROVIDERS: ATTEND Internal Medicine
DX: M86.9 Osteomyelitis, unspecified (principal)
CPT/HCPCS: 96365

== ENCOUNTER 2016-12-15 10:56 | Day surgery (SDC) | payer OTHER ==
[2016-12-15 11:28] VITALS: TEMP 98.1
[2016-12-15] MEDS ORDERED: cefTRIAXone 2 GM/100 ML BAG (PRE-DOCKED) IVPB ONE (12:00)
[2016-12-15 12:20] VITALS: BP 143/72; PULSE 74
== END 2016-12-15 12:19 | disposition home or self-care (01) ==
LOC: JINFUSION 10:56
PROVIDERS: ATTEND Internal Medicine
DX: M86.9 Osteomyelitis, unspecified (principal)
CPT/HCPCS: 96365

== ENCOUNTER 2016-12-17 10:48 | Day surgery (SDC) | payer OTHER ==
[2016-12-17 12:15] VITALS: BP 145/79; PULSE 17; TEMP 98.7
== END 2016-12-17 12:11 | disposition home or self-care (01) ==
LOC: JASU-ENDO 10:48 → JINFUSION 10:48 → JASU-ENDO 12:11
PROVIDERS: ATTEND Internal Medicine
DX: M86.9 Osteomyelitis, unspecified (principal)
CPT/HCPCS: 96365

== ENCOUNTER 2016-12-18 10:24 | Day surgery (SDC) | payer OTHER ==
[2016-12-18] MEDS ORDERED: CEFTRIAXONE 2 GM in DEXTROSE 5%-WATER 100 ML IVPB ONE (10:45)
[2016-12-18] MEDS ORDERED: DEXTROSE 5%-WATER 100 ML IVPB ONE (11:00)
[2016-12-18 11:49] VITALS: BP 128/66; PULSE 87; TEMP 98.2
== END 2016-12-18 13:00 | disposition home or self-care (01) ==
LOC: J7W 10:24 → JINFUSION 10:24
PROVIDERS: ATTEND Internal Medicine
DX: M86.9 Osteomyelitis, unspecified (principal)
CPT/HCPCS: 96365

== ENCOUNTER 2016-12-19 10:46 | Day surgery (SDC) | payer OTHER ==
[2016-12-19] MEDS ORDERED: DEXTROSE 5%-WATER 100 ML IVPB ONE (11:09)
[2016-12-19 11:15] VITALS: TEMP 98
[2016-12-19] MEDS ORDERED: CEFTRIAXONE 2 GM in DEXTROSE 5%-WATER 100 ML IVPB ONE (11:30)
[2016-12-19] MEDS ORDERED: cefTRIAXone 2 GM/100 ML BAG (PRE-DOCKED) IVPB ONE (11:30)
[2016-12-19 12:10] VITALS: BP 134/60; PULSE 72
== END 2016-12-19 12:20 | disposition home or self-care (01) ==
LOC: JINFUSION 10:46 → J7W 10:47 → JINFUSION 12:20
PROVIDERS: ATTEND Internal Medicine
DX: M86.9 Osteomyelitis, unspecified (principal)
CPT/HCPCS: 96365

== ENCOUNTER 2016-12-20 11:16 | Day surgery (SDC) | payer OTHER ==
[2016-12-20 11:53] LABS: MCH 27.4 pg (25.7-33.7); MCHC 33.4 g/dl (32.0-36.0); MEAN CELL VOLUME 82.1 fl (80-96); MEAN PLT VOLUME 7.7 fl (7.5-11.1); PLATELET COUNT 248 K/MM3 (134-434); RDW 15.8 % (11.6-15.6); WHITE BLOOD COUNT 6.4 K/mm3 (4.0-10.0)
[2016-12-20 12:03] VITALS: TEMP 98.6
[2016-12-20 12:30] VITALS: BP 142/53; PULSE 70
[2016-12-20 12:31] LABS: ANION GAP 6 (8-16); C-REACTIVE PROTEIN 0.4 MG/DL (0.00-0.3); CALCIUM 9.6 mg/dL (8.5-10.1); CO2 29 mmol/L (21-32); CREATININE 1.2 mg/dL (0.55-1.02); GLUCOSE,RANDOM 89 mg/dL (74-106)
[2016-12-20 16:41] LABS: ERYTHROCYTE SEDIMENTATION RATE 25 mm/hr (0-30)
== END 2016-12-20 12:30 | disposition home or self-care (01) ==
LOC: JINFUSION 11:16
PROVIDERS: ATTEND Internal Medicine
DX: M86.9 Osteomyelitis, unspecified (principal)
CPT/HCPCS: 36415; 80048; 85027; 85651; 86140; 96365

== ENCOUNTER 2016-12-21 11:26 | Day surgery (SDC) | payer OTHER ==
[2016-12-21 12:11] VITALS: TEMP 98.4
[2016-12-21 12:47] VITALS: BP 144/70; PULSE 68
--- NOTE | 2016-12-22 20:57 | PN ---
Past Medical History Chief Complaint: i HAVE A WOUND ON MY rIGHT FOOT History of Present Illness: Follow up eval of aound right foot, Sx induced. She c/o of wound getting bigger and increased pain. She stets this all started [place] walking. She had he rinfusion today of IVAbx for OM with no complications Limitations to Obtaining History: Yes: No Limitations - Past Medical History Vital Signs: Last Vital Signs Temp Pulse Resp BP Pulse Ox 98.4 F 68 16 144/70 12/21/16 11:50 12/21/16 12:40 12/21/16 12:40 12/21/16 12:40 PMH,PSH,Fam Hx, Meds,Allergies,Previous Tx: Reviewed in Nursing Documentation and no changes since last visit. Review of Systems Constitutional: reports: No Symptoms Eyes: reports: No Symptoms Cardiovascular: reports: No Symptoms Respiratory: reports: No Symptoms Musculoskeletal: reports: No Symptoms Integumentary: reports: Wound (Full thickness wound lateral aspect right foot n o clinicla signs of infection it seems to have stalled as far as helaing goes as compared tolast visit) Neurological: reports: No Symptoms Endocrine: reports: No Symptoms Hematology/Lymphatic: reports: No Symptoms Psychiatric: reports: No Symptoms - Appearance General Appearance: Well groomed, Well nourished, No acute distress Assistive Devices: Post-op shoe - Vascular Lower extremity Pulses: 2+ Right Dorsalis Pedis, 2+ Right Posterior Tibial, 2+ Right Popliteal, 2+ Right Femoral, 2+ Left Doralis Pedis, 2+ Left Posterior Tibial, 2+ Left Popliteal, 2+ Left Femoral Varicosities: No Skin Temperature: WNL CFT: Instantaneous Amputations: No - Wound Assessment Wound #1 Assessment: Right, Stage III (No clinical signs of infection noted, very tender with localized erythema) Drainage: None Drainage amount: None Odor: No Wound length (cm) [Pre-debridement]: 4 Wound width(cm) [Pre-debridement]: 1 Wound depth (cm) [Pre-debridement]: 0.4 Wound length (cm) [Post debridement]: 4.4 Wound width (cm) [Post debridement]: 0.3 Wound depth (cm) [Post debridement]: 0.5 Sinus tract (o'clock): None Undermining (o'clock): None Wound bed: Slough, Eschar Plan of Care: A history was completed , an examination was performed, and the decision was made to perform an excisional debridement using a scalpel / Apply an appligraf. The areas for debridement were prepped and cleansed. Using a #10 blade, I excisionally debrided the damaged/ Devitalized/Necrotic tissue down to and including Sub Cutaneous tissue/ Muscle and upon completion was covered with a damp saline moistened gauze. Topical Lidocaine was used. Some bleeding occurred and pressure was applied. Each ulcer was dressed with Collagen with Silver and DSD. The patient tolerated the procedures well. HBOT consultation is not indicated. Goal of Care __X___ To Heal To Maintain (wound healing is slow or stalled but stable, little / no deterioration) To Monitor / Manage ( wound healing not achievable due to untreatable underlying condition e.g. cancer, un-reversible severe peripheral vascular disease. Patient Counseled on: Diagnosis and Tx Plan Instructions: Instructions were provided to the Patient, and the patient is to return in 14 days. Patietn being followed by Inffaisal Dz for OM Continue VNS with active wound care Tx plan Patient demonstrated verbal understanding of all that was said today and they agreed to alert me on effectiveness. Problem List - Problems (1) Disruption of external operation (surgical) wound, not elsewhere classified , initial encounter Code(s): T81.31XA - DISRUPTION OF EXTERNAL OPERATION (SURGICAL) WOUND, NEC, INIT (2) Hyperlipemia Code(s): E78.5 - HYPERLIPIDEMIA, UNSPECIFIED (3) Hypertension Code(s): I10 - ESSENTIAL (PRIMARY) HYPERTENSION
== END 2016-12-21 12:47 | disposition home or self-care (01) ==
LOC: JINFUSION 11:26
PROVIDERS: ATTEND Internal Medicine
DX: M86.9 Osteomyelitis, unspecified (principal)
CPT/HCPCS: 96365

== ENCOUNTER 2016-12-22 11:05 | Day surgery (SDC) | payer OTHER ==
[2016-12-22 13:37] VITALS: BP 140/62; PULSE 72; TEMP 97.9
== END 2016-12-22 12:15 | disposition home or self-care (01) ==
LOC: JASU-ENDO 11:05 → JINFUSION 11:05 → JASU-ENDO 12:15
PROVIDERS: ATTEND Internal Medicine
DX: M86.9 Osteomyelitis, unspecified (principal); S81.032D Puncture wound without foreign body, left knee, subsequent encounter; L90.8 Other atrophic disorders of skin
CPT/HCPCS: 11042; 96365

== ENCOUNTER 2016-12-24 11:13 | Day surgery (SDC) | payer OTHER ==
[2016-12-24 12:44] VITALS: BP 160/81; PULSE 73; TEMP 98.3
== END 2016-12-24 12:50 | disposition home or self-care (01) ==
LOC: JASU-ENDO 11:13 → JINFUSION 11:13 → JASU-ENDO 12:50
PROVIDERS: ATTEND Internal Medicine
DX: M86.9 Osteomyelitis, unspecified (principal)
CPT/HCPCS: 96365

== ENCOUNTER 2016-12-25 10:45 | Day surgery (SDC) | payer OTHER ==
[2016-12-25] MEDS ORDERED: CEFTRIAXONE 2 GM in DEXTROSE 5%-WATER 100 ML IVPB ONE (11:45)
[2016-12-25] MEDS ORDERED: DEXTROSE 5%-WATER 100 ML IVPB ONE (11:47)
[2016-12-25 12:16] VITALS: TEMP 99
[2016-12-25 12:32] VITALS: BP 135/66; PULSE 68
== END 2016-12-25 12:30 | disposition home or self-care (01) ==
LOC: JINFUSION 10:45 → J7W 10:48 → JINFUSION 12:30
PROVIDERS: ATTEND Internal Medicine
DX: M86.9 Osteomyelitis, unspecified (principal)
CPT/HCPCS: 96365

== ENCOUNTER 2016-12-26 10:36 | Day surgery (SDC) | payer OTHER ==
[2016-12-26] MEDS ORDERED: CEFTRIAXONE 2 GM in DEXTROSE 5%-WATER 100 ML IVPB ONE (11:00)
[2016-12-26 11:13] VITALS: BP 139/63; PULSE 72; TEMP 98.5; BMI 28.3
[2016-12-26] MEDS ORDERED: DEXTROSE 5%-WATER 100 ML IVPB ONE (11:14)
== END 2016-12-26 13:41 | disposition home or self-care (01) ==
LOC: J7W 10:36 → JINFUSION 10:36
PROVIDERS: ATTEND Internal Medicine
DX: M86.9 Osteomyelitis, unspecified (principal)
CPT/HCPCS: 96365

== ENCOUNTER 2016-12-27 10:59 | Day surgery (SDC) | payer OTHER ==
[2016-12-27 11:28] LABS: MCH 27.2 pg (25.7-33.7); MCHC 33.2 g/dl (32.0-36.0); MEAN PLT VOLUME 7.4 fl (7.5-11.1); PLATELET COUNT 239 K/MM3 (134-434); WHITE BLOOD COUNT 6.2 K/mm3 (4.0-10.0)
[2016-12-27 12:43] LABS: ANION GAP 7 (8-16); C-REACTIVE PROTEIN < 0.3 MG/DL (0.00-0.3); CO2 27 mmol/L (21-32); CREATININE 1.1 mg/dL (0.55-1.02); GLUCOSE,RANDOM 100 mg/dL (74-106)
[2016-12-27 12:48] VITALS: BP 123/59; PULSE 74; TEMP 98.2
[2016-12-27 13:03] LABS: ERYTHROCYTE SEDIMENTATION RATE 19 mm/hr (0-30)
== END 2016-12-27 12:35 | disposition home or self-care (01) ==
LOC: JINFUSION 10:59
PROVIDERS: ATTEND Internal Medicine
DX: M86.9 Osteomyelitis, unspecified (principal)
CPT/HCPCS: 36415; 80048; 85027; 85651; 86140; 96365

== ENCOUNTER 2016-12-28 10:32 | Day surgery (SDC) | payer OTHER ==
[2016-12-28 10:55] VITALS: BP 145/69; PULSE 71; TEMP 98.1
== END 2016-12-28 12:15 | disposition home or self-care (01) ==
LOC: JINFUSION 10:32
PROVIDERS: ATTEND Internal Medicine
DX: M86.9 Osteomyelitis, unspecified (principal)
CPT/HCPCS: 96365

== ENCOUNTER 2016-12-29 10:59 | Day surgery (SDC) | payer OTHER ==
[2016-12-29 11:44] VITALS: TEMP 98.5
[2016-12-29 13:06] VITALS: BP 131/74; PULSE 74
== END 2016-12-29 12:15 | disposition home or self-care (01) ==
LOC: JINFUSION 10:59
PROVIDERS: ATTEND Internal Medicine
DX: M86.9 Osteomyelitis, unspecified (principal)
CPT/HCPCS: 96365

== ENCOUNTER 2016-12-30 10:37 | Day surgery (SDC) | payer OTHER ==
[2016-12-30 11:57] VITALS: BP 119/67; PULSE 75; TEMP 97.7
== END 2016-12-30 11:55 | disposition home or self-care (01) ==
LOC: JINFUSION 10:37
PROVIDERS: ATTEND Internal Medicine
DX: M86.9 Osteomyelitis, unspecified (principal)
CPT/HCPCS: 96365

== ENCOUNTER 2016-12-31 10:39 | Day surgery (SDC) | payer OTHER ==
--- NOTE | 2016-12-30 15:45 | PN ---
Progress Note (short form) - Note Progress Note: ID Pt seen on infusion unit Reports less foot pain and swelling. + drainage noted on dressing R foot with slight edema and erythema lateral aspect approx 2cm ulceration adjacent to lateral malleolus ESR 19 CRP <0.3 Non- healing foot ulcer/ chronic osteomyelitis Continue ceftriaxone, local wound care
[2016-12-31 13:31] VITALS: BP 137/62; PULSE 72; TEMP 98.1
== END 2016-12-31 12:05 | disposition home or self-care (01) ==
LOC: JINFUSION 10:39
PROVIDERS: ATTEND Internal Medicine
DX: M86.9 Osteomyelitis, unspecified (principal)
CPT/HCPCS: 96365

== ENCOUNTER 2017-01-01 10:33 | Day surgery (SDC) | payer OTHER ==
[2017-01-01] MEDS ORDERED: CEFTRIAXONE 2 GM in DEXTROSE 5%-WATER - 50 ML IVPB ONE (11:00)
[2017-01-01] MEDS ORDERED: DEXTROSE 5%-WATER - 50 ML IVPB ONE (11:16)
[2017-01-01 11:30] VITALS: BP 138/62; PULSE 73; TEMP 98.2
== END 2017-01-01 12:23 | disposition home or self-care (01) ==
LOC: JINFUSION 10:33 → J7W 10:33 → JINFUSION 12:23
PROVIDERS: ATTEND Internal Medicine
DX: M86.9 Osteomyelitis, unspecified (principal)
CPT/HCPCS: 96365

== ENCOUNTER 2017-01-02 10:46 | Day surgery (SDC) | payer OTHER ==
[2017-01-02] MEDS ORDERED: DEXTROSE 5%-WATER - 50 ML IVPB ONE (11:11)
[2017-01-02] MEDS ORDERED: CEFTRIAXONE 2 GM in DEXTROSE 5%-WATER - 50 ML IVPB ONE (11:15)
[2017-01-02 11:20] VITALS: TEMP 98.1
[2017-01-02 14:48] VITALS: BP 145/72; PULSE 80
== END 2017-01-02 13:19 | disposition home or self-care (01) ==
LOC: JINFUSION 10:46 → J7W 10:47 → JINFUSION 13:19
PROVIDERS: ATTEND Internal Medicine
DX: M86.9 Osteomyelitis, unspecified (principal)
CPT/HCPCS: 96365

== ENCOUNTER 2017-01-03 11:04 | Day surgery (SDC) | payer OTHER ==
[2017-01-03 11:23] LABS: MCH 27.1 pg (25.7-33.7); MCHC 33.3 g/dl (32.0-36.0); MEAN CELL VOLUME 81.5 fl (80-96); MEAN PLT VOLUME 7.5 fl (7.5-11.1); PLATELET COUNT 271 K/MM3 (134-434); RDW 15.8 % (11.6-15.6); WHITE BLOOD COUNT 7.2 K/mm3 (4.0-10.0)
[2017-01-03 11:48] LABS: ANION GAP 6 (8-16); CALCIUM 10.2 mg/dL (8.5-10.1); CO2 28 mmol/L (21-32); CREATININE 1.4 mg/dL (0.55-1.02); GLUCOSE,RANDOM 93 mg/dL (74-106)
[2017-01-03] MEDS ORDERED: cefTRIAXone 2 GM/100 ML BAG (PRE-DOCKED) IVPB ONE (12:00)
[2017-01-03 12:29] VITALS: TEMP 98.9
[2017-01-03 12:40] VITALS: BP 150/88; PULSE 68
[2017-01-03 12:41] LABS: ERYTHROCYTE SEDIMENTATION RATE 23 mm/hr (0-30)
== END 2017-01-03 12:30 | disposition home or self-care (01) ==
LOC: JINFUSION 11:04
PROVIDERS: ATTEND Internal Medicine
DX: M86.9 Osteomyelitis, unspecified (principal)
CPT/HCPCS: 36415; 80048; 85027; 85651; 86140; 96365

== ENCOUNTER 2017-01-04 10:47 | Day surgery (SDC) | payer OTHER ==
[2017-01-04] MEDS ORDERED: CEFTRIAXONE 2 GM in DEXTROSE 5%-WATER - 100 ML IVPB ONE (11:30)
[2017-01-04] MEDS ORDERED: CEFTRIAXONE 2 GM in DEXTROSE 5%-WATER 100 ML IVPB ONE (11:30)
[2017-01-04 11:38] VITALS: TEMP 98.5
[2017-01-04 12:34] VITALS: BP 131/87; PULSE 83
== END 2017-01-04 12:10 | disposition home or self-care (01) ==
LOC: JINFUSION 10:47
PROVIDERS: ATTEND Internal Medicine
DX: M86.9 Osteomyelitis, unspecified (principal)
CPT/HCPCS: 96365

== ENCOUNTER 2017-01-05 10:56 | Day surgery (SDC) | payer OTHER ==
[2017-01-05 13:35] VITALS: BP 146/64; PULSE 84; TEMP 97.6
--- NOTE | 2017-01-05 22:21 | PN ---
Past Medical History Chief Complaint: I have a wiund on my right foot History of Present Illness: Follow up eval of slow helaing wound right foot undergoing IV abx for OM. She has no new complaints today and deniesd N/V/F/C. She was last seen by INffaisal Pearce on 12/30/16 History Provided By: Patient Limitations to Obtaining History: Yes: No Limitations - Past Medical History Vital Signs: Last Vital Signs Temp Pulse Resp BP Pulse Ox 97.6 F 84 20 146/64 01/05/17 13:35 01/05/17 13:35 01/05/17 13:35 01/05/17 13:35 PMH,PSH,Fam Hx, Meds,Allergies,Previous Tx: Reviewed in Nursing Documentation and no changes since last visit. Review of Systems Constitutional: reports: No Symptoms Eyes: reports: No Symptoms Cardiovascular: reports: No Symptoms Respiratory: reports: No Symptoms Musculoskeletal: reports: No Symptoms Integumentary: reports: Wound (Full thicknes wound lateral aspect right foot with no clinicla signs of infection noted today) Neurological: reports: No Symptoms Endocrine: reports: No Symptoms Hematology/Lymphatic: reports: No Symptoms Psychiatric: reports: No Symptoms - Appearance General Appearance: Well groomed, Well nourished, No acute distress Assistive Devices: Post-op shoe - Vascular Lower extremity Pulses: 2+ Right Dorsalis Pedis, 2+ Right Posterior Tibial, 2+ Right Popliteal, 2+ Right Femoral, 2+ Left Doralis Pedis, 2+ Left Posterior Tibial, 2+ Left Popliteal, 2+ Left Femoral Varicosities: No Skin Temperature: WNL CFT: Instantaneous Amputations: No - Wound Assessment Wound #1 Assessment: Right, Stage III, Pressure Drainage: None Drainage amount: None Odor: No Wound length (cm) [Pre-debridement]: 3.2 Wound width(cm) [Pre-debridement]: 1 Wound depth (cm) [Pre-debridement]: 0.3 Wound length (cm) [Post debridement]: 3.3 Wound width (cm) [Post debridement]: 1.5 Wound depth (cm) [Post debridement]: 0.3 Sinus tract (o'clock): none Undermining (o'clock): none Wound bed: Granulation (<40%), Slough, Eschar Plan of Care: A history was completed , an examination was performed, and the decision was made to perform an excisional debridement using a scalpel. The areas for debridement were prepped and cleansed. Using a #10 blade, I excisionally debrided the damaged/ Devitalized/Necrotic tissue down to and including Sub Cutaneous tissue/ Muscle and upon completion was covered with a damp saline moistened gauze. Topical Lidocaine was used. Some bleeding occurred and pressure was applied. Each ulcer was dressed with Acticoat 3 . The patient tolerated the procedures well. HBOT consultation is not indicated. Goal of Care ___X__ To Heal To Maintain (wound healing is slow or stalled but stable, little / no deterioration) To Monitor / Manage ( wound healing not achievable due to untreatable underlying condition e.g. cancer, un-reversible severe peripheral vascular disease. Medical Decision Making: Patient is complicated due to: Comorbidities Patient Counseled on: Diagnosis and Tx Plan, Diet/Nutrition Instructions: Instructions were provided to the Patient, and the patient is to return in 14 days. Continue current Tx plan and VNS Continue IV abx for OM as per Infxs Dz Patient demonstrated verbal understanding of all that was said today and they agreed to alert me on effectiveness. Problem List - Problems (1) Chronic wound of extremity Code(s): [id number] - (2) Hyperlipemia Code(s): E78.5 - HYPERLIPIDEMIA, UNSPECIFIED (3) Hypertension Code(s): I10 - ESSENTIAL (PRIMARY) HYPERTENSION
== END 2017-01-05 12:03 | disposition home or self-care (01) ==
LOC: JINFUSION 10:56
PROVIDERS: ATTEND Internal Medicine
DX: M86.9 Osteomyelitis, unspecified (principal)
CPT/HCPCS: 11042; 96365; 96367

== ENCOUNTER 2017-01-07 10:43 | Day surgery (SDC) | payer OTHER ==
[2017-01-07 11:58] VITALS: BP 120/60; PULSE 78; TEMP 98
== END 2017-01-07 11:57 | disposition home or self-care (01) ==
LOC: JINFUSION 10:43
PROVIDERS: ATTEND Internal Medicine
DX: M86.9 Osteomyelitis, unspecified (principal)
CPT/HCPCS: 96365

== ENCOUNTER 2017-01-08 10:34 | Day surgery (SDC) | payer OTHER ==
[2017-01-08] MEDS ORDERED: DEXTROSE 5%-WATER 200 ML IVPB ONE (11:19)
[2017-01-08] MEDS ORDERED: CEFTRIAXONE 2 GM in DEXTROSE 5%-WATER 100 ML IVPB ONE (11:20)
[2017-01-08 11:24] VITALS: TEMP 98.7
[2017-01-08 13:19] VITALS: BP 160/60; PULSE 66
== END 2017-01-08 13:00 | disposition home or self-care (01) ==
LOC: J7W 10:34 → JINFUSION 10:34
PROVIDERS: ATTEND Internal Medicine
DX: M86.9 Osteomyelitis, unspecified (principal)
CPT/HCPCS: 96365; 96366

== ENCOUNTER 2017-01-09 10:42 | Day surgery (SDC) | payer OTHER ==
[2017-01-09] MEDS ORDERED: DEXTROSE 5%-WATER 100 ML IVPB ONE (11:16)
[2017-01-09] MEDS ORDERED: CEFTRIAXONE 2 GM in DEXTROSE 5%-WATER 100 ML IVPB ONE (12:00)
[2017-01-09 12:10] VITALS: BP 157/63; PULSE 68; TEMP 97.8
== END 2017-01-09 12:00 | disposition home or self-care (01) ==
LOC: J7W 10:42 → JINFUSION 10:42
PROVIDERS: ATTEND Internal Medicine
DX: M86.9 Osteomyelitis, unspecified (principal)
CPT/HCPCS: 96365